=== PATIENT | female | born 1990 | race Hispanic/Latino ===

== ENCOUNTER 2017-08-13 15:00 | Inpatient (IN) | payer MEDICARE ==
--- NOTE | 2017-08-13 17:35 | RAD ---
PORTABLE CHEST 08/13/17 PROVIDED CLINICAL HISTORY: Generalized weakness. FINDINGS: Comparison 01/25/15. Cardiac and mediastinal silhouette is within normal limits. The lungs appear clear. No pleural fluid or pneumothorax apparent. Catheter material overlies the right and left neck and chest and upper abdo men, similar to the prior study. IMPRESSION: No evidence for an acute cardiopulmonary process. POS: [facility]
[2017-08-13 17:50] LABS: #Eosinphils 0.2 thou/uL (0.0-0.7); #Monocytes 0.6 thou/uL (0.11-0.59); #Neutrophils 6.8 thou/uL (1.40-6.50); %Basophils 0.3 % (0.0-1.0); %Eosinophils 2.1 % (0.0-10.0); %Lymphocytes 28.3 % (21.0-51.0); %Monocytes 5.9 % (0.0-10.0); %Neutrophils 63.4 % (42.0-75.0); Hemoglobin 13.6 g/dL (12.0-16.0); Mean Corpuscular HGB CONC 32.8 g/dL (32.0-36.0); Mean Corpuscular Volume 85.5 fl (81.0-99.0); Mean Platelet Volume 8.7 fL (7.4-10.4); Platelet Count 268 thou/uL (130-400); RBC Distribution Width 13.4 % (11.5-14.5); Red Blood Cell (RBC) Count 4.86 mill/uL (4.20-5.40); White Blood Cell (WBC) Count 10.7 thou/uL (4.8-10.8)
[2017-08-13 18:11] LABS: AST (SGOT) 10 U/L (5-34); Albumin 4.2 g/dL (3.5-5.0); Anion Gap 17 mmol/L (10-20); Bilirubin, Total 0.5 mg/dL (0.2-1.2); Calc. Creatinine Clearance 0 mL/min (70-130); Calcium 9.5 mg/dL (7.8-10.44); Carbon Dioxide 22 mmol/L (22-29); Chloride 103 mmol/L (98-107); Estimated GFR-MDRD Greater than 90; Globulin 3.2 g/dL (2.4-3.5); Potassium 4.2 mmol/L (3.5-5.1); Protein, Total 7.4 g/dL (6.0-8.3); Sodium 138 mmol/L (136-145)
[2017-08-13 18:19] LABS: ALT (SGPT) 13 U/L (8-55); Alkaline Phosphatase 160 U/L (40-150); BUN (Urea Nitrogen) 16 mg/dL (7.0-18.7); Glucose 113 mg/dL (70-105)
--- NOTE | 2017-08-13 18:34 | CT ---
CT BRAIN 08/13/17 PROVIDED CLINICAL HISTORY: Altered mental status. FINDINGS: Comparison is made with the study dated 03/07/17. There has been interval enlargement of the ventricular system, most prominently involving the left la teral ventricle. There is interval development of hypodensity about the frontal horn of the left late ral ventricle and to a lesser extent about the occipital and temporal horns. Left frontal and right p arietal ventriculostomy catheters are again seen in similar positions. Metallic coils are noted withi n the central aspects of the lateral ventricles. Hypodensity involving the white matter of the right frontal region as well as the right temporal region appears similar to somewhat more conspicuous than on the prior study. There is persistent shift of the midline structures rightward, appearing slightl y worsened with respect to the prior study. The extracranial soft tissues and osseous structures appe ar unremarkable. The visualized portions of each ventriculoperitoneal shunt catheter appear intact. IMPRESSION: Interval development of hydrocephalus and findings suggesting of transependymal flow of CSF. Neurosur gical consultation is recommended. POS: [facility]
[2017-08-13 18:46] LABS: Bilirubin Negative (Negative); Blood, Urine Small (Negative); Clarity CLOUDY (Clear); Glucose, Urine (Dipstick) Negative (Negative); Leukocyte Moderate (Negative); Nitrite Negative (Negative); Protein, Urine (Dipstick) Negative (Neg-Trace); Specific Gravity, Urine 1.024 (1.002-1.036); Urobilinogen 0.2 mg/dL (0.2-1.0)
--- NOTE | 2017-08-13 18:48 | RAD ---
SHUNTOGRAM 08/13/17 PROVIDED CLINICAL HISTORY: Altered mental status. FINDINGS: Comparison is made with the study dated 03/07/17. Bilateral SHORT STORY WRITER shunt catheter material is noted, similar to the prior examination. There is no evidence for discontinuity of the shunt catheters. A fragment of shunt catheter overlies the right chest ras lar to the prior study. Right sided shunt catheter tip terminates in the left upper quadrant and left sided shunt catheter tip terminates overlying the pelvis slightly right of midline. IVC filter and s urgical clips involving the right abdomen are again seen. The chest and abdomen demonstrate no acute findings. IMPRESSION: No radiographic evidence for discontinuity of the visualized portions of the ventriculoperitoneal alysha nt catheter apparatus. POS: [facility]
[2017-08-13 18:50] LABS: Bacteria/HPF 4+ HPF (None Seen); Hyaline Casts/LPF 7-10 HYALINE CAST LPF (0-3 Hyaline); Pathc Cast-AUWi Flag 0.67 (0-2.49); WBC/HPF 21-50 HPF (0-3)
[2017-08-13 18:52] LABS: Pregnancy Test - Urine (BHCG) Negative (Negative); Pregu Control Background? CLEAR/WHITE (CLR/WHITE); Pregu Control Bar Appear? YES (CONTROL BAR); Specific Gravity 1.024 (1.002-1.036)
[2017-08-13] MEDS ORDERED: Diprivan 0 ML ONE (21:06)
[2017-08-13] MEDS ORDERED: Ondansetron HCl/PF 4 MG/2 ML Vial IVP PRN (21:13)
[2017-08-13] MEDS ORDERED: Ondansetron ODT 4 MG TAB SL PRN (21:13)
[2017-08-13] MEDS: Fentanyl 100 MCG/2 ML VIAL ONE ×2 (21:22→21:32)
[2017-08-13] MEDS: Midazolam HCl 2 mg/2 ml Vial ONE ×2 (21:22→21:38)
[2017-08-13] MEDS ORDERED: Lidocaine 1% w/Epinephrine 1:200K 30 ML VIAL ONE (21:41)
[2017-08-13] MEDS ORDERED: Acetaminophen 325 MG TAB PO PRN (23:10)
[2017-08-13] MEDS ORDERED: Mag-Al 1200 mg/1200 mg/30 ML UDCUP PO PRN (23:10)
[2017-08-13] MEDS ORDERED: hydrALAZINE 20 MG/ML VIAL SLOW IVP PRN (23:10)
[2017-08-13] MEDS ORDERED: Bisacodyl 10 MG SUPP PR PRN (23:10)
[2017-08-13] MEDS ORDERED: Milk Of Magnesia 30 ML UDCUP PO PRN (23:10)
[2017-08-13] MEDS ORDERED: Docusate 100 MG CAP PO PRN (23:10)
[2017-08-14] MEDS: Sodium Chloride 0.9% 1,000 ML IV SCH ×2 (02:18→12:39)
[2017-08-14 05:11] LABS: #Eosinphils 0.2 thou/uL (0.0-0.7); #Monocytes 0.7 thou/uL (0.11-0.59); #Neutrophils 5.6 thou/uL (1.40-6.50); %Basophils 0.1 % (0.0-1.0); %Eosinophils 1.8 % (0.0-10.0); %Lymphocytes 31.3 % (21.0-51.0); %Monocytes 7.7 % (0.0-10.0); %Neutrophils 59.1 % (42.0-75.0); Hemoglobin 11.7 g/dL (12.0-16.0); Mean Corpuscular HGB CONC 33.4 g/dL (32.0-36.0); Mean Corpuscular Hemoglobin 28.6 pg (27.0-31.0); Mean Corpuscular Volume 85.5 fl (81.0-99.0); Mean Platelet Volume 8.9 fL (7.4-10.4); Platelet Count 223 thou/uL (130-400); RBC Distribution Width 13.3 % (11.5-14.5); Red Blood Cell (RBC) Count 4.11 mill/uL (4.20-5.40); White Blood Cell (WBC) Count 9.5 thou/uL (4.8-10.8)
[2017-08-14 05:22] LABS: Anion Gap 15 mmol/L (10-20); BUN (Urea Nitrogen) 14 mg/dL (7.0-18.7); CRP (Inflammatory) 0.94 mg/dL (= or < 0.5); Calc. Creatinine Clearance 203 mL/min (70-130); Calcium 9.3 mg/dL (7.8-10.44); Carbon Dioxide 23 mmol/L (22-29); Chloride 107 mmol/L (98-107); Estimated GFR-MDRD Greater than 90; Glucose 115 mg/dL (70-105); Potassium 3.5 mmol/L (3.5-5.1); Sodium 141 mmol/L (136-145)
--- NOTE | 2017-08-14 07:54 | CT ---
PRELIMINARY REPORT/[facility]/EMERGENCY AFTER HOURS PROCEDURE: EXAM: CT Head Without Intravenous Contrast CLINICAL HISTORY: 26 years old, female; Signs and symptoms; Other: F/u evd placed; Prior surgery; Surgery date: Postope rative (0-2 days) TECHNIQUE: Axial computed tomography images of the head/brain without intravenous contrast. COMPARISON: CT Brain WO Con 2017-08-13 17:45 FINDINGS: Grossly stable appearance to the right ventriculostomy catheter. The left ventriculostomy catheter tr aversing midline and terminating in the right frontal region is grossly stable. New left sided ventri culostomy catheter traversing left frontal ena hole terminates in the suprasellar cistern to the rig ht of midline The ventricles are dysmorphic with interval decompression. Moderate to severe white matter disease/gl iosis is grossly stable. Chronic right-sided craniotomies are stable No hemorrhage or acute territorial infarction. The paranasal sinuses and mastoid cavities are grossly clear IMPRESSION: Interval placement of new left-sided ventriculostomy drain with interval decompression of the ventric ular system No acute intracranial hemorrhage.Please see discussion above. Thank you for allowing us to participate in the care of your patient. Dictated and Authenticated by: Chencho Hand MD 08/14/2017 4:50 AM Central Time ([place] & [place]) FINAL REPORT NONCONTRAST HEAD CT: Date: 08/14/17 COMPARISON: 08/13/17. HISTORY: Status post INSPECTOR REPAIRER shunt placement. Hydrocephalus. TECHNIQUE: Noncontrast head CT is performed from skull base to skull vertex. FINDINGS: Redemonstration of a right parietal and left temporal INSPECTOR REPAIRER shunt catheter. Interval placement of a new left frontal INSPECTOR REPAIRER shunt catheter. There is decompression of the ventricular system. White matter hypode nsities presumed to be due to chronic changes of the white matter or possibly transependymal flow of CSF are again noted. There are stable colon masses. There are stable changes to the right frontal lob e. Calvarium is intact. Adequate aeration of the sinuses and mastoid air cells. IMPRESSION: Interval decrease in size of ventricular system, after placement of a new INSPECTOR REPAIRER shunt catheter via the l eft frontal approach. The new catheter terminates in the region of the septum pellucidum/posterior ri ght frontal horn. This report agrees with the preliminary report by Jung. POS: [facility]
--- NOTE | 2017-08-14 08:01 | CT ---
PRELIMINARY REPORT/[facility]/EMERGENCY AFTER HOURS PROCEDURE: EXAM: CT Chest Without Intravenous Contrast CLINICAL HISTORY: 26 years old, female; Signs and symptoms; Other: R/O infection TECHNIQUE: Axial computed tomography images of the chest without intravenous contrast. COMPARISON: No relevant prior studies available. FINDINGS: Lungs: Unremarkable. No mass. No consolidation. Pleural space: Unremarkable. No pneumothorax. No significant effusion. Heart: Unremarkable. No cardiomegaly. No significant pericardial effusion. Bones/joints: Unremarkable. No acute fracture. No dislocation. Soft tissues: Unremarkable. Vasculature: Unremarkable. No thoracic aortic aneurysm. Lymph nodes: Unremarkable. No enlarged lymph nodes. IMPRESSION: No definite acute process observed EXAM: CT Abdomen and Pelvis Without Intravenous Contrast CLINICAL HISTORY: 26 years old, female; Signs and symptoms; Other: R/O infection TECHNIQUE: Axial computed tomography images of the abdomen and pelvis without intravenous contrast. COMPARISON: No relevant prior studies available. FINDINGS: ABDOMEN: Liver: Unremarkable. Gallbladder and bile ducts: Prior cholecystectomy. No ductal dilation. Pancreas: Unremarkable. No ductal dilation. Spleen: Unremarkable. No splenomegaly. Adrenals: Unremarkable. No mass. Kidneys and ureters: Unremarkable. No obstructing stones. No hydronephrosis. Stomach and bowel: Unremarkable. No obstruction. No mucosal thickening. Appendix: No findings to suggest acute appendicitis. PELVIS: Bladder: The urinary bladder is decompressed by a Pedersen catheter. Reproductive: Unremarkable as visualized. ABDOMEN and PELVIS: Intraperitoneal space: Ventriculoperitoneal shunt terminating in the right pelvis. No free air. No si gnificant fluid collection. Bones/joints: No acute fracture. No dislocation. Soft tissues: Unremarkable. Vasculature: IVC filter No abdominal aortic aneurysm. Lymph nodes: Unremarkable. No enlarged lymph nodes. IMPRESSION: No definite acute process observed Thank you for allowing us to participate in the care of your patient. Dictated and Authenticated by: Chencho Hand MD 08/14/2017 4:57 AM Central Time ([place] & [place]) FINAL REPORT EMERGENCY AFTER HOURS CT CHEST AND ABDOMEN AND PELVIS: Date: 08/14/17 FINDINGS/IMPRESSION: This report agrees with the preliminary report by Jung. No definite suspicious CT abnormality to expl ain any infectious symptoms or signs that the patient is having. No focal consolidation seen to sugge st presence of pneumonia. There are two separate ventriculoperitoneal catheters present. Pedersen cathet er seen within decompressed bladder. IVC filter is present. Unopacified solid organs of the abdomen a nd pelvis appear within normal limits. Normal appendix. No definite acute osseous abnormality is esdras sly evident. POS: [facility]
[2017-08-14] MEDS ORDERED: FLU VACC QS2017-18 36 mo. & older 0.5 ML SYRINGE IM ONE (09:00)
[2017-08-14] MEDS ORDERED: Benzonatate 100 MG CAP PO PRN (09:58)
[2017-08-14] MEDS ORDERED: traMADol HCl 50 MG TAB PO PRN (09:58)
[2017-08-14] MEDS ORDERED: Dextrose 5% in Water 1,000 ML IV PRN (09:58)
[2017-08-14] MEDS ORDERED: Nitroglycerin 0.4 MG TAB (25 Tab Bottle) SL PRN (09:58)
[2017-08-14] MEDS ORDERED: Dextrose 50% Abboject 50 ML SYRINGE SLOW IVP PRN (09:58)
[2017-08-14] MEDS ORDERED: Diabetic Tussin 200 MG/10 ML UDCUP PO PRN (09:58)
[2017-08-14] MEDS ORDERED: Loratadine 10 MG TAB PO PRN (09:58)
[2017-08-14] MEDS ORDERED: cefTRIAXone\\ROCEPHIN 1 GM in Sodium Chloride 0.9% 100 ML IVPB SCH ×2 (10:15→14:00)
--- NOTE | 2017-08-14 11:06 | PRG ---
DATE OF SERVICE: 08/14/2017 Ms. Steven is hospital day 1 following placement of an external ventricular drain. Her head CT demon strates satisfactory decompression of the ventricular system and following placement of the external ventricular drain. We will await the reading on the CT scan of the chest, abdomen, and pelvis. She appears to have 2 catheters both going into the peritoneal cavity. It is a little unclear to me whet her the one on the left is near fluid collection at the end of the catheter in the lower pelvis, this may not be a pseudocyst and it may not be a fluid collection. We will try evaluate that. Our plan is to watch her through the weekend to try and get an idea as to what her shunt setting is most likel y best at, but the plan at this point is to make sure we have a urinary tract infection treated adequ ately and likely plan for placement of a left-sided shunt early next week.
--- NOTE | 2017-08-14 11:29 | OP ---
DATE OF PROCEDURE: 08/13/2017 LOCATION: ICU SURGEON: Paul Blanca M.D. 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 PROCEDURE: Placement of left frontal external ventricular drain to prevent neurological decline. DESCRIPTION OF PROCEDURE: After informed consent was obtained from the patient and her family, the p farida was positioned in the ICU bed. The left frontal Mirta's region was sterilely cleansed, prepa red, and draped following the clipping of hair. Proper patient pause and identification was carried out. A small linear incision was made. The skull was perforated and the dura opened. A catheter wa s placed with return of CSF under moderate pressure. This was tunneled and secured to the Payne jung in bag and the EVD was kept open at 10 cm of water. The procedure was well tolerated and closure occ urred in anatomic layers.
--- NOTE | 2017-08-14 12:14 | PRG ---
DATE OF SERVICE: 08/14/2017 This is a 30-minute initial hospital visit note, in which 30 minutes were spent in reviewing the imag ing record, evaluation and examination of the patient, and formulation of a plan. Greater than 50% o f time was spent in counseling on Jennifer Steven. CHIEF COMPLAINT: Concern of shunt malfunction with shunt-dependent hydrocephalus. HISTORY OF PRESENT ILLNESS: I reviewed the notes of my colleague Alfredo Cottrell PA-C, and agree wit h its content. Ms. 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 She has also had multiple shunt revisions and has 2 shunts and that appears last revision was in 2008. She has a right-sided catheter that appears to be more o f a parietal entry and also left-sided more frontal entry. Looking back at February 2017, the ventricl es were well decompressed. It is unclear to me what type of valves she has, it may perhaps [place] based on the appearance on CT. Nevertheless, she came in over last couple of weeks, brought in b y her family as she was more drowsy. She also had increased headache. She was evaluated here, and a head CT demonstrates ventricular enlargement consistent with hydrocephalus and likely shunt malfunct ion with transependymal flow. She was also found to have a urinary tract infection. She was admitte d to the ICU, and my plan is to place an external ventricular drain and trying to sort out what if an y shunt is needed here for this patient and which one may be malfunctioning. Also, I think it is imp ortant to get a CT scan of the chest, abdomen, and pelvis to make sure there is not a pseudocyst. PHYSICAL EXAMINATION: On exam, she is alert and appropriate. She has left-sided hemiplegia but foll ows commands briskly on the right side. She actually looks quite well given her shunt malfunction. 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 On exam, she has multiple well- healed shunt wounds. IMPRESSION AND PLAN: We will plan for placement of an external ventricular drain over the course of the next few days and sort out if there is any type of infection or malfunction. The goals, indicati ons, risks, alternatives, complications were discussed in detail with the patient and her family grayson deandreing placement of external ventricular drain. They understand that if we do not place a drain she c ould continue to neurologically decline due to failure of her shunt to work. DIAGNOSES: 1. Shunt-dependent hydrocephalus with shunt malfunction. 2. History of AVM surgery.
[2017-08-14] MEDS: cefTRIAXone\\ROCEPHIN 1 GM, Syringe 0.4 ML in Sterile Water 9.6 ML SLOW IVP SCH ×2 (12:39→12:51)
[2017-08-14] MEDS: HumaLOG 300 UNITS/3 ML VIAL SC PRN (12:59)
--- NOTE | 2017-08-14 14:49 | CON ---
DATE OF CONSULTATION: 08/14/2017 REASON FOR CONSULTATION: Hydrocephalus, possible infection. HISTORY OF PRESENT ILLNESS: This is a 26-year-old, who has a history of congenital AV malformation with prior CVA and lower extremity impairment of function as well as hydrocephalus, which required SENIOR JAVA WEB APPLICATION DEVELOPER shunt placement. The patient was admitted 3 times in 2014 for complications of diabetes mellitus as well as hyponatremia. Reportedly, the shunt was placed in 2008 and revised and then the patient had a shuntogram in 02/2017, which showed no discontinuity by radiographic assessment, and then a few days later, another shuntogram showed bilateral SENIOR JAVA WEB APPLICATION DEVELOPER shunt catheters with patency visualized all the way to the abdomen. This time, she presented to the emergency room with a 1-week history of ataxic gait and confusional state and decrease in alertness as well as weakness with anorexia. She was having also increase in the urinary frequency. There had been no fever, no respiratory symptoms, or abdominal pain. No dysuria. No back pain. Patient's initial vital signs with blood pressure 140/ 65, pulse 81, respirations 18, temperature 97.1, O2 sat 98%. The HEENT exam not remarkable. Neck was supple. Lungs with symmetric clear breath sounds. Heart exam was normal. Abdomen, soft. The patient had evidence of hydrocephalus on CT scan, and Dr. Blanca did a placement of left frontal external ventricular drain. A shuntogram was performed, which demonstrated no discontinuity of the portions of the SENIOR JAVA WEB APPLICATION DEVELOPER shunt catheter apparatus. In today's progress note from Dr. Blanca, he notices the adequate satisfactory decompression of the ventricular system. There are some questions the 2 SENIOR JAVA WEB APPLICATION DEVELOPER shunt catheters, particularly regarding the possibility of a pseudocyst. There are some concerns about her urinary tract as well. Right now , she is awake. She is more alert as per relatives. She has no headaches. She has some diplopia, which was not present previous before this dysfunction. No sore throat. No respiratory symptoms or abdominal pain. She has a Pedersen catheter inserted. She has chronic weakness of lower extremities, which is unchanged. PAST MEDICAL HISTORY: Type 2 diabetes; hypertension; hyperlipidemia; GERD; cerebral palsy; AV malformation; hydrocephalus, requiring SENIOR JAVA WEB APPLICATION DEVELOPER shunt placement; vitamin D deficiency. PAST SURGICAL HISTORY: As above plus laparoscopic cholecystectomy; parietal craniectomy for resection of the AV malformation; PEG tube placement; and thoracostomy, left side. MEDICATIONS: Currently receiving Tylenol, Maalox, Tessalon, Dulcolax, ceftriaxone, dextrose, guaifenesin, hydralazine, insulin, tramadol. ALLERGIES: None. FAMILY HISTORY: There is 1 sibling who had a cerebral aneurysm rupture. SOCIAL HISTORY: Lives in [place], [place]. Never a smoker. PHYSICAL EXAMINATION: VITAL SIGNS: T-max 98.5, blood pressure 150/97, pulse 86, respirations 16, O2 sat 96%. GENERAL: Appears in no distress, alert, follows commands. She has a Pedersen catheter in place. SKIN EXAMINATION: Otherwise, shows the left-sided ventriculostomy area. She has some difficulty with left-sided gaze. She has no nystagmus noted. Sclerae white. Pupils are equally reactive. Oral cavity moist. Gag reflex is present. NECK: Supple. LUNGS: Symmetric clear breath sounds. HEART: S1, S2, regular rate. No murmurs. ABDOMEN: Soft, nondistended. No tenderness. No bladder distention. EXTREMITIES: No joint inflammatory activity. She has weakness in lower extremities with hyporeflexia. Plantar responses are absent. She can barely wiggle her toes. Most of her movements are in the proximal musculature of the lower extremities. The upper extremities have better mobility. NEUROLOGIC: She is awake, knows her name. She cannot give me answers to questions. Has quite a bit of dysarthria. LABORATORY DATA: The white cell count is 10.7, on admission 9.5; hemoglobin of 11; platelets 223. Chemistry was unremarkable except for glucose of 222, calcium 9.3, CRP 0.94, albumin 4.2. I do not see any CSF submitted for testing. CT abdomen and pelvis with no abnormalities noted. CT of chest, no abnormalities noted. ASSESSMENT: 1. 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 2. Dysfunction of SENIOR JAVA WEB APPLICATION DEVELOPER shunt with recurrence of hydrocephalus, status post percutaneous ventriculostomy drain placement. 3. Abnormal urinalysis with positive urine culture. DISCUSSION: The differential diagnosis includes SENIOR JAVA WEB APPLICATION DEVELOPER shunt infection with SENIOR JAVA WEB APPLICATION DEVELOPER shunt-associated meningitis versus dysfunction for another reason. The patient has this urinary tract findings, and those will be treated, although they could represent asymptomatic bacteriuria. We will resume Rocephin until we have the final susceptibilities for the organism. The duration of therapy will be short lived since I do not think she has clinical or laboratory evidence to suggest an invasive urinary tract infection. Regarding the SENIOR JAVA WEB APPLICATION DEVELOPER shunt, I would encourage submission of CSF sample for testing for cell count, protein, glucose, and cultures. MTDD
--- NOTE | 2017-08-14 15:35 | PDOC.PN ---
- Subjective Encounter Start Date: 08/14/17 Encounter Start Time: 15:33 Subjective: feels Ok. denies any pain/headache/SOB/fever/chest pain - Objective MAR Reviewed: Yes Vital Signs & Weight: Vital Signs (12 hours) Temp Pulse Resp Pulse Ox 08/14/17 12:00 98.5 F 08/14/17 08:00 98.5 F 71 16 99 08/14/17 04:00 97.9 F Weight Admit Weight 213 lb Weight 213 lb 2.992 oz Most Recent Monitor Data Heart Rate from ECG 95 NIBP 168/78 NIBP BP-Mean 132 Respiration from ECG 18 SpO2 98 I&O: 08/13/17 08/14/17 08/15/17 06:59 06:59 06:59 Intake Total 407 420 Output Total 235 391 Balance 172 29 Result Diagrams: 08/14/17 05:04 08/14/17 05:04 Additional Labs: Accuchecks 08/14/17 08/14/17 12:24 10:41 POC Glucose 222 H 269 H Microbiology 08/13/17 17:25 Urine Straight Catheter Urine Culture - Preliminary Gram Negative [facility] Laboratory Tests 08/13/17 08/14/17 08/14/17 15:52 10:41 12:24 POC Glucose 132 H 269 H 222 H Phys Exam - Physical Examination Constitutional: NAD awake and alert & follows simple commands HEENT: PERRLA, moist MMs, sclera anicteric, oral pharynx no lesions Neck: no JVD Respiratory: no wheezing, no rales, no rhonchi, clear to auscultation bilateral Cardiovascular: RRR, no significant murmur, no rub, gallop Gastrointestinal: soft, non-tender, no distention, positive bowel sounds Musculoskeletal: no edema, pulses present left hemiparesis.disconjugate gaze Psychiatric: normal affect, A&O x 3 Skin: no rash Dx/Plan (1) UTI (urinary tract infection) Status: Acute Qualifiers: Urinary tract infection type: acute cystitis Hematuria presence: without hematuria Qualified Code(s): N30.00 - Acute cystitis without hematuria Comment: re started on rocephin (2) Hydrocephalus Code(s): G91.9 - HYDROCEPHALUS, UNSPECIFIED Status: Acute Comment: s/p external ventricular shunt (3) CONDUCTOR/BRAKEMAN (ventriculoperitoneal) shunt status Status: Acute (4) Hypertension Code(s): I10 - ESSENTIAL (PRIMARY) HYPERTENSION Status: Chronic (5) Mental retardation Code(s): F79 - UNSPECIFIED INTELLECTUAL DISABILITIES Status: Chronic (6) DM2 (diabetes mellitus, type 2) Status: Chronic Qualifiers: Diabetes mellitus complication status: with hyperglycemia (7) History of CVA (cerebrovascular accident) Code(s): Z86.73 - PRSNL HX OF TIA (TIA), AND CEREB INFRC W/O RESID DEFICITS Status: Chronic - Plan PT/OT, respiratory therapy, incentive spirometry, out of bed/ambulate, DVT proph w/SCDs Add Rocephin.urine Cx pending.Id on board -: add ISS.monitor Accuchecks.Metformin on hold.ADA diet -: Meds reviewed.restart Norvasc,lisinopril -: am labs * . Review of Systems - Review of Systems Other: Limited due to MR and h/o cva.denies any new problems for now. - Medications/Allergies Allergies/Adverse Reactions: Allergies Allergy/AdvReac Type Severity Reaction Status Date / Time No Known Drug Allergies Allergy Verified 01/15/15 14:23 Medications: Current Medications Acetaminophen (Tylenol) 650 mg PO Q6H PRN PRN Reason: Headache/Fever or Pain Al Hydroxide/Mg Hydroxide (Maalox) 30 ml PO Q6H PRN PRN Reason: Indigestion Benzonatate (Tessalon) 100 mg PO Q4H PRN PRN Reason: Cough Bisacodyl (Dulcolax) 10 mg VT DAILYPRN PRN PRN Reason: Constipation Dextrose/Water (Dextrose 50%) 25 gm SLOW IVP PRN PRN PRN Reason: Hypoglycemia Docusate Sodium (Colace) 100 mg PO BIDPRN PRN PRN Reason: Constipation Glucagon (Glucagon) 1 mg IM PRN PRN PRN Reason: Hypoglycemia Guaifenesin (Robitussin Sf) 200 mg PO Q4H PRN PRN Reason: Cough Hydralazine HCl (Apresoline) 5 mg SLOW IVP Q15MIN PRN PRN Reason: SBP GREATER THAN 160 Sodium Chloride (Normal Saline 0.9%) 1,000 mls @ 80 mls/hr IV .[id number] [facility] Last Admin: 08/14/17 12:39 Dose: 1,000 mls Dextrose/Water (D5w) 1,000 mls @ 0 mls/hr IV .Q0M PRN; As Directed PRN Reason: Hypoglycemia Ceftriaxone Sodium 1 gm/ (Syringe 0.4 ml/ Sterile Water) 10 mls @ 120 mls/hr SLOW IVP 1100 MIGUELITO Last Admin: 08/14/17 12:51 Dose: 10 mls Insulin Human Lispro (Humalog) 0 units SC .MODERATE SLIDING SC PRN PRN Reason: Moderate Correctional Scale Last Admin: 08/14/17 12:59 Dose: 4 unit Insulin Human Lispro (Humalog) 0 units SC .BEDTIME SLIDING SC PRN PRN Reason: Bedtime Correctional Scale Loratadine (Claritin) 10 mg PO DAILYPRN PRN PRN Reason: Sinus Symptoms Magnesium Hydroxide (Milk Of Magnesium) 30 ml PO BIDPRN PRN PRN Reason: Constipation Nitroglycerin (Nitrostat) 0.4 mg SL Q5MIN PRN PRN Reason: Chest Pain Sodium Chloride (Flush - Normal Saline) 10 ml IVF Q12HR [facility] Last Admin: 08/14/17 09:45 Dose: 10 ml Sodium Chloride (Flush - Normal Saline) 10 ml IVF PRN PRN PRN Reason: Saline Flush Tramadol HCl (Ultram) 50 mg PO Q4H PRN PRN Reason: Moderate Pain (4-6) History of Present Illnes - History of Present Illness Reason for Visit: Ataxia.AMS History of Present Illness: Admitted by NS for Ataxia and possible CONDUCTOR/BRAKEMAN shunt malfunction.Brain Ct showed Hydrocephalus. 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
--- NOTE | 2017-08-14 20:37 | CON ---
DATE OF CONSULTATION: 08/14/2017 HISTORY OF PRESENT ILLNESS: Ms. Steven is a 26-year-old female. She presented with altered mental s tatus. She has a chronic indwelling ventriculoperitoneal shunt. 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 She was admitted 3 years ag o with complications of diabetes and hyponatremia. She presented with change in mental status and is had an external fixation of a ventricular drain. She had evidence of hydrocephalus. I was consulte d because of her presence in the Critical Care Unit. She actually wakes up and answers questions. PAST MEDICAL HISTORY: 1. Remarkable for diabetes. 2. Hypertension. 3. Lipid disorder. 4. Reflux disease. 5. Cerebral palsy. 6. History of a central nervous system AV malformation. 7. History of cholecystectomy. 8. History of craniotomy for resection of an AV malformation. 9. History of PEG in the past. 10. History of thoracostomy in the past. MEDICATIONS: Have been reviewed. SOCIAL HISTORY: She is a nonsmoker, nondrinker. She does not use drugs. FAMILY HISTORY: Positive for cerebral aneurysm and a sibling. There is no history of lung disease at an early age. She lives in [place], [place]. PHYSICAL EXAMINATION: VITAL SIGNS: She is afebrile, heart rate in the 80s, blood pressure 140/90, respiratory rate 18, oxi metry is 98%. Temperature maximum is 98.5 since she has been admitted. HEENT: Pupils are react. She has slight disconjugate gaze with difficulty looking to the left. Her sclerae is anicteric. NECK: Supple. She is very cooperative. LUNGS: Clear. HEART: Regular rhythm. S1 and S2 are normal. I do not hear murmur. ABDOMEN: Soft and nontender. EXTREMITIES: With no asymmetry. She apparently has chronic weakness of her lower extremities. LABORATORY DATA: White count 9.5, hemoglobin 11.7, platelets 223. Sodium 141, potassium 3.5, chlori de 107, bicarbonate 23, BUN 14, creatinine 1.6. IMPRESSION: Status post placement of an external ventricular drain. Urine cultures growing gram neg ative rods. I do not see any CSF cultures or blood cultures have been reported out. I will be happy to follow with the other physicians caring for her. She appears stable from a respiratory standpoin t at this time. Critical care time was 30 minutes.
[2017-08-15] MEDS: Sodium Chloride 0.9% 1,000 ML IV SCH ×2 (00:20→12:45)
[2017-08-15] MEDS: Lisinopril 2.5 MG TAB PO SCH (09:35)
[2017-08-15] MEDS: Amlodipine 5 MG TAB PO SCH (09:35)
[2017-08-15] MEDS: cefTRIAXone\\ROCEPHIN 1 GM, Syringe 0.4 ML in Sterile Water 9.6 ML SLOW IVP SCH (11:00)
--- NOTE | 2017-08-15 11:08 | PRG ---
DATE OF SERVICE: 08/15/2017 SUBJECTIVE: Jennifer Steven has no complaints. She still has a right gaze preference. OBJECTIVE: LUNGS: Clear. HEART: Regular rhythm. ABDOMEN: Soft. Intake and output is negative 22. Her CSF drainage is 145 mL in the last 24 hours. IMPRESSION: 1. Hydrocephalus status post malfunction of a ventriculoperitoneal shunt. 2. Cystitis with Escherichia coli. PLAN: Continue external drainage from neurosurgery, antimicrobial therapy for Infectious Disease. F rom a respiratory standpoint, she is stable.
[2017-08-15] MEDS: HumaLOG 300 UNITS/3 ML VIAL SC PRN (11:54)
--- NOTE | 2017-08-15 14:59 | PRG ---
DATE OF SERVICE: 08/15/2017 Ms. Steven is hospital day 2 following admission for shunt malfunction, it appears as if she has urin zbigniew tract infection. She is being treated for this. Dr. Ordoñez is following. I do not suspect shunt infection here. I suspect shunt malfunction. I have reviewed her head CT post-external ventricular drain placement, it demonstrated satisfactory decompression of the ventricular system. I also revie wed the CT scan of the chest, abdomen, and pelvis with Dr. Zhang and it appears as if there is no e vidence of pseudocyst in the abdomen. Her external ventricular drain appears to be working just fine . Intracranial pressures are in the acceptable range and her drain output is just under 10 mL/h. Fu rther, the patient neurologically states she feels much better and is much more alert with stable lef t-sided hemiplegia, interactive and states that she has significant improvement in her headache that she experienced in the last couple weeks in her shunt and malfunction. The plan at this point is to take the patient to surgery early next week likely to stay for shunt placement. This will likely be a left-sided shunt, I would like to do this with Dr. Zhang. I do not feel strongly that we need to send CSF at this point as the patient has had nothing for meningismus or central nervous system infe ction. I suspect she has a shunt malfunction and the infectious processes has been localized to the urine certainly should she have evidence of, otherwise we can send CSF. We may consider sending CSF prior to shunt placement, although again my suspicion of any shunt malfunction is essentially zero.
--- NOTE | 2017-08-15 15:09 | PDOC.PN ---
- Subjective Encounter Start Date: 08/15/17 Encounter Start Time: 15:08 Subjective: feels better. good appetite.no overnight events - Objective MAR Reviewed: Yes Vital Signs & Weight: Vital Signs (12 hours) Temp Pulse BP 08/15/17 09:35 82 159/96 H 08/15/17 04:00 98.3 F Weight Admit Weight 213 lb Weight 213 lb 2.992 oz Most Recent Monitor Data Heart Rate from ECG 78 NIBP 159/96 NIBP BP-Mean 119 Respiration from ECG 15 SpO2 98 I&O: 08/14/17 08/15/17 08/16/17 06:59 06:59 06:59 Intake Total 407 1553 Output Total 235 1575 Balance 172 -22 Result Diagrams: 08/14/17 05:04 08/14/17 05:04 Additional Labs: Accuchecks 08/15/17 08/15/17 08/14/17 11:50 06:10 20:06 POC Glucose 181 H 141 H 182 H 08/14/17 17:56 POC Glucose 113 H Microbiology 08/13/17 17:25 Urine Straight Catheter Urine Culture - Final Escherichia coli Phys Exam - Physical Examination Constitutional: NAD HEENT: PERRLA, moist MMs, sclera anicteric, oral pharynx no lesions Neck: no nodes, no JVD, supple, full ROM Respiratory: no wheezing, no rales, no rhonchi, clear to auscultation bilateral Cardiovascular: RRR, no significant murmur Gastrointestinal: soft, non-tender, no distention, positive bowel sounds Musculoskeletal: no edema, pulses present left hemiparesis.disconjugate gaze Psychiatric: normal affect, A&O x 3 Skin: no rash Dx/Plan (1) UTI (urinary tract infection) Status: Acute Qualifiers: Urinary tract infection type: acute cystitis Hematuria presence: without hematuria Qualified Code(s): N30.00 - Acute cystitis without hematuria Comment: re started on rocephin (2) Hydrocephalus Code(s): G91.9 - HYDROCEPHALUS, UNSPECIFIED Status: Acute Comment: s/p external ventricular shunt (3) KEY ENTRY OPERATOR (ventriculoperitoneal) shunt status Status: Acute (4) Hypertension Code(s): I10 - ESSENTIAL (PRIMARY) HYPERTENSION Status: Chronic (5) Mental retardation Code(s): F79 - UNSPECIFIED INTELLECTUAL DISABILITIES Status: Chronic (6) DM2 (diabetes mellitus, type 2) Status: Chronic Qualifiers: Diabetes mellitus complication status: with hyperglycemia (7) History of CVA (cerebrovascular accident) Code(s): Z86.73 - PRSNL HX OF TIA (TIA), AND CEREB INFRC W/O RESID DEFICITS Status: Chronic - Plan 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 -: BP improved w restarting amlodipine & lisinopril. -: Cont rocephin for UTI.ID following. -: Shunt management per primary team. HD stable,afebrile -: am labs.will follow * . Review of Systems - Review of Systems Constitutional: negative: fever, chills, sweats, weakness, malaise, other ENT: negative: Ear Pain, Ear Discharge, Nose Pain, Nose Discharge, Nose Congestion, Mouth Pain, Mouth Swelling, Throat Pain, Throat Swelling, Other Respiratory: negative: Cough, Dry, Shortness of Breath, Hemoptysis, SOB with Excertion, Pleuritic Pain, Sputum, Wheezing Cardiovascular: negative: chest pain, palpitations, orthopnea, paroxysmal nocturnal dyspnea, edema, light headedness, other Gastrointestinal: negative: Nausea, Vomiting, Abdominal Pain, Diarrhea, Constipation, Melena, Hematochezia, Other Genitourinary: negative: Dysuria, Frequency, Incontinence, Hematuria, Retention , Other Neurological: negative: Weakness, Numbness, Incoordination, Change in Speech, Confusion, Seizures, Other - Medications/Allergies Allergies/Adverse Reactions: Allergies Allergy/AdvReac Type Severity Reaction Status Date / Time No Known Drug Allergies Allergy Verified 01/15/15 14:23 Medications: Current Medications Acetaminophen (Tylenol) 650 mg PO Q6H PRN PRN Reason: Headache/Fever or Pain Last Admin: 08/15/17 02:39 Dose: 650 mg Al Hydroxide/Mg Hydroxide (Maalox) 30 ml PO Q6H PRN PRN Reason: Indigestion Amlodipine Besylate (Norvasc) 5 mg PO DAILY MIGUELITO Last Admin: 08/15/17 09:35 Dose: 5 mg Benzonatate (Tessalon) 100 mg PO Q4H PRN PRN Reason: Cough Bisacodyl (Dulcolax) 10 mg [place] DAILYPRN PRN PRN Reason: Constipation Dextrose/Water (Dextrose 50%) 25 gm SLOW IVP PRN PRN PRN Reason: Hypoglycemia Docusate Sodium (Colace) 100 mg PO BIDPRN PRN PRN Reason: Constipation Glucagon (Glucagon) 1 mg IM PRN PRN PRN Reason: Hypoglycemia Guaifenesin (Robitussin Sf) 200 mg PO Q4H PRN PRN Reason: Cough Hydralazine HCl (Apresoline) 5 mg SLOW IVP Q15MIN PRN PRN Reason: SBP GREATER THAN 160 Sodium Chloride (Normal Saline 0.9%) 1,000 mls @ 80 mls/hr IV .[id number] REPLACED BY [facility] Last Admin: 08/15/17 00:20 Dose: 1,000 mls Dextrose/Water (D5w) 1,000 mls @ 0 mls/hr IV .Q0M PRN; As Directed PRN Reason: Hypoglycemia Ceftriaxone Sodium 1 gm/ (Syringe 0.4 ml/ Sterile Water) 10 mls @ 120 mls/hr SLOW IVP 1100 REPLACED BY [facility] Last Admin: 08/14/17 12:51 Dose: 10 mls Insulin Human Lispro (Humalog) 0 units SC .MODERATE SLIDING SC PRN PRN Reason: Moderate Correctional Scale Last Admin: 08/15/17 11:54 Dose: 2 unit Insulin Human Lispro (Humalog) 0 units SC .BEDTIME SLIDING SC PRN PRN Reason: Bedtime Correctional Scale Lisinopril (Zestril) 2.5 mg PO DAILY REPLACED BY [facility] Last Admin: 08/15/17 09:35 Dose: 2.5 mg Loratadine (Claritin) 10 mg PO DAILYPRN PRN PRN Reason: Sinus Symptoms Magnesium Hydroxide (Milk Of Magnesium) 30 ml PO BIDPRN PRN PRN Reason: Constipation Nitroglycerin (Nitrostat) 0.4 mg SL Q5MIN PRN PRN Reason: Chest Pain Sodium Chloride (Flush - Normal Saline) 10 ml IVF Q12HR REPLACED BY [facility] Last Admin: 08/15/17 09:36 Dose: 10 ml Sodium Chloride (Flush - Normal Saline) 10 ml IVF PRN PRN PRN Reason: Saline Flush Tramadol HCl (Ultram) 50 mg PO Q4H PRN PRN Reason: Moderate Pain (4-6)
[2017-08-16] MEDS: Sodium Chloride 0.9% 1,000 ML IV SCH ×2 (01:31→14:00)
[2017-08-16 03:53] LABS: #Eosinphils 0.3 thou/uL (0.0-0.7); #Monocytes 0.9 thou/uL (0.11-0.59); #Neutrophils 6.2 thou/uL (1.40-6.50); %Basophils 0.4 % (0.0-1.0); %Eosinophils 2.6 % (0.0-10.0); %Lymphocytes 28.8 % (21.0-51.0); %Monocytes 8.9 % (0.0-10.0); %Neutrophils 59.3 % (42.0-75.0); Hemoglobin 11.8 g/dL (12.0-16.0); Mean Corpuscular HGB CONC 32.2 g/dL (32.0-36.0); Mean Corpuscular Hemoglobin 27.4 pg (27.0-31.0); Mean Corpuscular Volume 85.1 fl (81.0-99.0); Platelet Count 164 thou/uL (130-400); RBC Distribution Width 13.5 % (11.5-14.5); Red Blood Cell (RBC) Count 4.31 mill/uL (4.20-5.40); White Blood Cell (WBC) Count 10.4 thou/uL (4.8-10.8)
[2017-08-16 04:06] LABS: Anion Gap 11 mmol/L (10-20); BUN (Urea Nitrogen) 10 mg/dL (7.0-18.7); Calc. Creatinine Clearance 210 mL/min (70-130); Calcium 8.8 mg/dL (7.8-10.44); Carbon Dioxide 23 mmol/L (22-29); Chloride 106 mmol/L (98-107); Estimated GFR-MDRD Greater than 90; Glucose 126 mg/dL (70-105); Potassium 3.8 mmol/L (3.5-5.1); Sodium 136 mmol/L (136-145)
[2017-08-16] MEDS: Amlodipine 5 MG TAB PO SCH (08:46)
[2017-08-16] MEDS: Lisinopril 2.5 MG TAB PO SCH (08:46)
--- NOTE | 2017-08-16 09:36 | PRG ---
DATE OF SERVICE: 08/16/2017 SUBJECTIVE: The patient is awake and alert, doing well, had no complaints. Still has an intraventri cular drain in place. PHYSICAL EXAMINATION: VITAL SIGNS: Temperature 98.3, pulse 81, blood pressure 127/74. HEENT: Unremarkable. NECK: No JVD. CHEST: Clear. CARDIAC: S1 and S2 regular. ABDOMEN: Soft. EXTREMITIES: No edema. LABORATORY DATA: White blood cell count 10, hematocrit 36, platelet count 164. Sodium 136, potassiu m 3.8, BUN 10, creatinine 0.6, glucose 126. ASSESSMENT: 1. Hydrocephalus. 2. Cystitis with Escherichia coli. PLAN: Continuing antimicrobial therapy. No issues at this time.
[2017-08-16] MEDS: cefTRIAXone\\ROCEPHIN 1 GM, Syringe 0.4 ML in Sterile Water 9.6 ML SLOW IVP SCH (11:52)
[2017-08-16] MEDS: HumaLOG 300 UNITS/3 ML VIAL SC PRN (11:52)
--- NOTE | 2017-08-16 15:41 | CON-2 ---
DATE OF CONSULTATION: 08/16/2017 ATTENDING PHYSICIAN: Jennifer Sage M.D. RESIDENT PHYSICIAN: Alfredo Mendoza M.D. REASON FOR CONSULTATION: Medical management. HISTORY OF PRESENT ILLNESS: This is a 26-year-old female with past medical history of shunt-dependent hydrocephalus, CP, insulin dependent type 2 diabetes mellitus, and hypertension, who initially presented with a 1-week history of ataxic gait and altered mentation and was admitted by the neurosurgical team due to concern for shunt malfunction. The patient underwent placement of a left external ventricular drain on 08/13/2017. Shuntogram apparently showed no discontinuity of her RESOURCE MANAGEMENT SPECIALIST shunt apparatus. Other issues include urine culture positive for E.Coli - patient may have had some increased urinary frequency on admission. The patient was initially followed for medical management by the hospitalist team, but is now being transferred to our service since she sees [facility] outpatient. PAST MEDICAL HISTORY: 1. Congenital AV malformation with chronic hydrocephalus. 2. GERD. 3. Dyslipidemia. 4. Obesity. 5. Hypertension. 6. Muscular atrophy. 7. Chronic disability. 8. History of cerebrovascular accident. 9. Vitamin D deficiency. PAST SURGICAL HISTORY: 1. Laparoscopic cholecystectomy. 2. Parietal craniectomy for AV malformation resection. 3. PEG tube placement. 4. Left side thoracostomy. HOME MEDICATIONS: Include, 1. Amlodipine 5 mg daily. 2. Atorvastatin 40 mg daily. 3. Vitamin D3 5000 units daily. 4. Metformin 1000 mg twice daily. 5. Lisinopril 2.5 mg daily. 6. Novolin N 20 units subcu b.i.d. 7. Levemir 50 units subcutaneously every morning. SOCIAL HISTORY: Negative x3. FAMILY HISTORY: Positive for cerebral aneurysm rupture in a sibling. REVIEW OF SYSTEMS: Ten-point review of systems including general, eyes, ENT, respiratory, CV, GI, , skin, musculoskeletal, neuro negative except for those pertinent positives listed above in HPI. PHYSICAL EXAMINATION: VITAL SIGNS: Temperature 98.7, respiratory rate 14, heart rate 76, blood pressure 156/87, oxygen saturation 98% on room air, weight was 97.4 kilograms. GENERAL: Patient was in no acute distress, awake, alert, and oriented to self and place. EYES: She had disconjugate gaze, but equally reactive pupils and sclerae was nonicteric. ENT: Mucous membranes moist. Oropharynx clear. CARDIOVASCULAR: Regular rate and rhythm. Pulses equal. RESPIRATORY: Clear to auscultation bilaterally, nonlabored. ABDOMEN: Soft, nontender to palpation. No guarding or rebound. EXTREMITIES: No clubbing, no cyanosis, no edema. Equal movements bilaterally without asymmetry. SKIN: No rash or ulcer. No palpable lesions. NEUROLOGIC: She has dysarthria. She has bilateral severe lower extremity weakness and hyperreflexia. PSYCHIATRIC: Mood and affect appropriate. She is cooperative with exam. LABORATORY DATA: CBC: White blood cells 10.4, hemoglobin 11.8, hematocrit 36.6 , platelets 164. Sodium 136, potassium 3.8, chloride 106, bicarbonate 23, BUN 10, creatinine 0.61, glucose 126, calcium 8.8. There is no new imaging from today. ASSESSMENT AND PLAN: This is a 26-year-old female with: 1. Congenital atrioventricular malformation with chronic shunt-dependent hydrocephalus. Primary management per Neurosurgery. New shunt to be placed early next week per Dr. Blanca's note. 2. Ventriculoperitoneal shunt malfunction. Adequate decompression appears to be obtained with the patient's external ventricular drain and subsequent improvement of neurological status. No central neurovascular system infection suspected at this time, management per primary team as above. 3. Urinary tract infection versus asymptomatic bacteria. Infectious Disease is following. No evidence of an invasive urinary tract infection. Culture growing out Escherichia coli, which was resistant to ampicillin and Bactrim. The patient should be adequately treated with 3 days of Rocephin, which will be tomorrow (08/17). 4. Type 2 diabetes mellitus. We will restart home insulin, possibly at a reduced rate since glucoses have not been high, and continue to monitor. 5. Hypertension. Continue home medications. Blood pressure is controlled at this time. 6. Hyperlipidemia. Continue statin. 7. Vitamin D deficiency. Continue daily replacement. Consultation discussed with attending physician, Dr. Sage, who agrees with the assessment and plan. Thank you for this consultation. We will continue to follow. LISAD
[2017-08-17] MEDS: Sodium Chloride 0.9% 1,000 ML IV SCH ×2 (01:04→13:07)
--- NOTE | 2017-08-17 06:58 | PDOC.FM ---
- Subjective Subjective: Patient reports doing well overnight. No complaints or concerns. Denies CP, SOB , N/V. Endorses flatus, no BM. Reports she has been consuming only clear liquids. - Objective MAR Reviewed: Yes Vital Signs & Weight: Vital Signs (12 hours) Temp Pulse Resp Pulse Ox 08/17/17 04:00 98.0 F 08/17/17 00:00 98.2 F 08/16/17 20:00 98.8 F 76 16 99 Weight Admit Weight 96.615 kg Weight 97.5 kg Most Recent Monitor Data Heart Rate from ECG 67 NIBP 140/82 NIBP BP-Mean 105 Respiration from ECG 13 SpO2 97 I&O: 08/15/17 08/16/17 08/17/17 06:59 06:59 06:59 Intake Total 1553 1600 2812 Output Total 1575 2032 2655 Balance -22 -432 157 Result Diagrams: 08/16/17 03:01 08/16/17 03:01 <Ralf Jackman - Last Filed: 08/17/17 06:56> - Objective Vital Signs & Weight: Vital Signs (12 hours) Temp Pulse Resp BP Pulse Ox 08/17/17 11:28 98.6 F 08/17/17 09:00 76 146/92 H 08/17/17 08:59 76 145/92 H 08/17/17 08:00 98.8 F 76 12 97 08/17/17 04:00 98.0 F Weight Admit Weight 96.615 kg Weight 97.5 kg Most Recent Monitor Data Heart Rate from ECG 86 NIBP 138/71 NIBP BP-Mean 86 Respiration from ECG 21 SpO2 99 I&O: 08/16/17 08/17/17 08/18/17 06:59 06:59 06:59 Intake Total 1600 2812 550 Output Total 2032 2655 607 Balance -432 157 -57 Result Diagrams: 08/16/17 03:01 08/16/17 03:01 <Jennifer Sage - Last Filed: 08/17/17 14:12> Phys Exam - Physical Examination Constitutional: NAD disconjugate gaze Neck: full ROM Respiratory: no wheezing Cardiovascular: RRR, no significant murmur Gastrointestinal: soft, positive bowel sounds Musculoskeletal: pulses present trace edema in LE Neurological: non-focal left sided hemiparesis Psychiatric: normal affect <Ralf Jackman - Last Filed: 08/17/17 06:56> Dx/Plan (1) Hydrocephalus Code(s): G91.9 - HYDROCEPHALUS, UNSPECIFIED Status: Acute (2) HUMAN RESOURCES MANAGER (ventriculoperitoneal) shunt status Status: Acute Plan: being managed by primary team (3) UTI (urinary tract infection) Status: Acute QualifierTitle: Urinary tract infection type: acute cystitis Hematuria presence: without hematuria Qualified Code(s): N30.00 - Acute cystitis without hematuria Plan: Patient currently on rocephin (4) Hypertension Code(s): I10 - ESSENTIAL (PRIMARY) HYPERTENSION Status: Chronic Plan: Did well overnight, increased during the day for the past couple days might need to adjust dosing or timing continue to monitor (5) DM2 (diabetes mellitus, type 2) Status: Chronic QualifierTitle: Diabetes mellitus complication status: with hyperglycemia Plan: patient has been well managed on current regimen, received 4 units SSI yesterday plan to restart home levemir today (6) Mental retardation Code(s): F79 - UNSPECIFIED INTELLECTUAL DISABILITIES Status: Chronic <Ralf Jackman - Last Filed: 08/17/17 06:56> Attending Addendum - Attending Addendum I personally evaluated the patient and discussed the management with Dr. Jackman. I agree with the History, Examination, Assessment and Plan documented above with any addition or exceptions noted below. The patient denies headache and states she feels well. Blood pressure is controlled. Will continue to monitor blood glucose and adjust insulin regimen as needed. <Jennifer Sage - Last Filed: 08/17/17 14:12>
--- NOTE | 2017-08-17 08:43 | PRG ---
DATE OF SERVICE: 08/17/2017 SUBJECTIVE: She says she feels okay this morning and is not having headache. PHYSICAL EXAMINATION: VITAL SIGNS: Temperature 98.0, pulse 87, blood pressure 140/82, O2 sat 97%. HEENT: Unremarkable. NECK: No JVD. CHEST: Clear. CARDIAC: S1, S2 regular. ABDOMEN: Soft. EXTREMITIES: No edema. ASSESSMENT: 1. Hydrocephalus. 2. Cystitis with Escherichia coli. PLAN: Continue antimicrobial therapy. No acute issues noted at this time.
[2017-08-17] MEDS: Amlodipine 5 MG TAB PO SCH (08:59)
[2017-08-17] MEDS ORDERED: Non-Formulary Item 1 EACH (Insulin Glargine,Hum.Rec.Anlog 20 UNIT) SQ SCH (09:00)
[2017-08-17] MEDS ORDERED: Non-Formulary Item 1 EACH (Insulin Glargine,Hum.Rec.Anlog 50 UNIT) SQ SCH (09:00)
[2017-08-17] MEDS: Lisinopril 2.5 MG TAB PO SCH (09:00)
[2017-08-17] MEDS: Insulin Detemir 100 UNITS/ML 20 UNITS in Pre-Filled Syringe 1 EACH SC SCH (09:02)
[2017-08-17] MEDS: cefTRIAXone\\ROCEPHIN 1 GM, Syringe 0.4 ML in Sterile Water 9.6 ML SLOW IVP SCH (11:34)
[2017-08-17] MEDS: HumaLOG 300 UNITS/3 ML VIAL SC PRN (16:37)
[2017-08-17] MEDS ORDERED: Levofloxacin 500 mg/D5W 100 ml Premix Bag ONE (18:15)
[2017-08-17] MEDS ORDERED: Clindamycin/D5W 900 mg/50 ml Premix Bag ONE (18:15)
[2017-08-18] MEDS: Sodium Chloride 0.9% 1,000 ML IV SCH ×2 (00:27→15:55)
--- NOTE | 2017-08-18 09:06 | PDOC.FM ---
- Subjective Subjective: Patient sitting up in chair doing well this morning. She has spoken with Dr. Blanca and will go back for surgery tomorrow. No acute events overnight. - Objective MAR Reviewed: Yes Vital Signs & Weight: Vital Signs (12 hours) Temp 08/18/17 08:00 97.9 F 08/18/17 04:00 98.1 F 08/18/17 00:00 98.5 F Weight Admit Weight 96.615 kg Weight 97 kg Most Recent Monitor Data Heart Rate from ECG 74 NIBP 122/72 NIBP BP-Mean 97 Respiration from ECG 17 SpO2 99 I&O: 08/17/17 08/18/17 08/19/17 06:59 06:59 06:59 Intake Total 2812 2878 360 Output Total 2655 3122 248 Balance 157 -244 112 Result Diagrams: 08/16/17 03:01 08/16/17 03:01 <Garrett Martínez - Last Filed: 08/18/17 09:04> - Objective Vital Signs & Weight: Vital Signs (12 hours) Temp Pulse Resp BP Pulse Ox 08/18/17 09:09 88 136/81 08/18/17 08:00 97.9 F 08/18/17 07:48 97.9 F 74 15 99 08/18/17 04:00 98.1 F 08/18/17 00:00 98.5 F Weight Admit Weight 96.615 kg Weight 97 kg Most Recent Monitor Data Heart Rate from ECG 88 NIBP 121/79 NIBP BP-Mean 93 Respiration from ECG 15 SpO2 99 I&O: 08/17/17 08/18/17 08/19/17 06:59 06:59 06:59 Intake Total 2812 2878 480 Output Total 2655 3122 419 Balance 157 -244 61 Result Diagrams: 08/16/17 03:01 08/16/17 03:01 <Sammy Huang - Last Filed: 08/18/17 11:30> Phys Exam - Physical Examination Constitutional: NAD HEENT: moist MMs Respiratory: no wheezing, no rales Cardiovascular: RRR, no significant murmur Gastrointestinal: soft, non-tender Neurological: moves all 4 limbs Psychiatric: normal affect, A&O x 3 <Garrett Martínez - Last Filed: 08/18/17 09:04> Dx/Plan (1) Hydrocephalus Code(s): G91.9 - HYDROCEPHALUS, UNSPECIFIED Status: Acute Plan: 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 Blanca with be taking patient to OR tomorrow with General Surgery (2) CHIEF OF FIELD OPERATIONS (ventriculoperitoneal) shunt status Status: Chronic Plan: see above (3) UTI (urinary tract infection) Status: Acute QualifierTitle: Urinary tract infection type: acute cystitis Hematuria presence: without hematuria Qualified Code(s): N30.00 - Acute cystitis without hematuria Plan: Day #3 of Rocephin Adequately treated (4) Hypernatremia Code(s): E87.0 - HYPEROSMOLALITY AND HYPERNATREMIA Status: Chronic Plan: Continue to monitor (5) Hypertension Code(s): I10 - ESSENTIAL (PRIMARY) HYPERTENSION Status: Chronic Plan: Appropriate overnight Continue to monitor - Plan Plan: Plan: -continue medical management until OR with Dr. Blanca tomorrow <Garrett Martínez - Last Filed: 08/18/17 09:04> Attending Addendum - Attending Addendum I personally evaluated the patient and discussed the management with Dr. Martínez. I agree with the History, Examination, Assessment and Plan documented above with any addition or exceptions noted below. <Sammy Huang - Last Filed: 08/18/17 11:30>
[2017-08-18] MEDS: Amlodipine 5 MG TAB PO SCH (09:09)
[2017-08-18] MEDS: Lisinopril 2.5 MG TAB PO SCH (09:09)
--- NOTE | 2017-08-18 09:09 | PRG ---
DATE OF SERVICE: 08/18/2017 Ms. Steven has tolerated placement of external ventricular drain well. She is approximately 5 to 10 mL of output hourly. She is sitting outside of her bed in a chair and states she continues to feel q uite well. Her urinary tract infection appears to have been treated satisfactorily. At this point, we will make plans for placement of a left-sided shunt tomorrow pending surgical schedule availabilit y. The goals, indications, risks, alternative complications were discussed in detail with the patien t. She understands the purpose of placement of a shunt and the risks. She wishes to proceed.
[2017-08-18] MEDS: Insulin Detemir 100 UNITS/ML 20 UNITS in Pre-Filled Syringe 1 EACH SC SCH (09:10)
[2017-08-18] MEDS: cefTRIAXone\\ROCEPHIN 1 GM, Syringe 0.4 ML in Sterile Water 9.6 ML SLOW IVP SCH (10:36)
[2017-08-18] MEDS: HumaLOG 300 UNITS/3 ML VIAL SC PRN (11:47)
[2017-08-18] MEDS ORDERED: Morphine 2 MG/ML SYRINGE SLOW IVP PRN (15:39)
--- NOTE | 2017-08-18 15:46 | PRG ---
DATE OF SERVICE: 08/18/2017 Ms. Steven is doing well. She is sitting up in a chair. She was very quick to respond to questions. She is in no distress. OBJECTIVE: VITAL SIGNS: Heart rate in the 80s. Blood pressure 108/83, respiratory rate 17. Intake and outputs negative 244. LUNGS: Clear. HEART: Regular rhythm. ABDOMEN: Soft. LABORATORY: He has no new lab other than blood glucoses. IMPRESSION: Malfunctioning ventriculoperitoneal shunt externalized. I am told that the plan is to r eimplant a shunt. She did have Escherichia coli isolated in her urine. She appears to be clinically stable.
[2017-08-18] MEDS: metFORMIN 500 MG TAB PO SCH (17:15)
[2017-08-18] MEDS: Atorvastatin Calcium 40 MG TAB PO SCH (21:38)
[2017-08-19] MEDS: Sodium Chloride 0.9% 1,000 ML IV SCH ×2 (05:15→17:26)
[2017-08-19] MEDS: metFORMIN 500 MG TAB PO SCH ×2 (08:07→17:26)
--- NOTE | 2017-08-19 08:32 | PDOC.FM ---
- Subjective Subjective: Patient sitting up in bed this morning. She is happy and smiling during our conversation. No acute events overnight. She is planning on surgery today with Dr. Blanca and Dr. Zhang, but is waiting on confirmation. Afebrile, VSS. - Objective MAR Reviewed: Yes Vital Signs & Weight: Vital Signs (12 hours) Temp 08/19/17 04:00 98.0 F 08/19/17 00:00 98.7 F Weight Admit Weight 96.615 kg Weight 96.1 kg Most Recent Monitor Data Heart Rate from ECG 76 NIBP 129/89 NIBP BP-Mean 102 Respiration from ECG 16 SpO2 98 I&O: 08/18/17 08/19/17 08/20/17 06:59 06:59 06:59 Intake Total 2878 2753 Output Total 3122 3238 Balance -244 -485 Result Diagrams: 08/16/17 03:01 08/16/17 03:01 <Garrett Martínez - Last Filed: 08/19/17 08:27> - Objective Vital Signs & Weight: Vital Signs (12 hours) Temp 08/19/17 07:00 98.0 F 08/19/17 04:00 98.0 F 08/19/17 00:00 98.7 F Weight Admit Weight 96.615 kg Weight 96.1 kg Most Recent Monitor Data Heart Rate from ECG 70 NIBP 131/89 NIBP BP-Mean 100 Respiration from ECG 7 SpO2 98 I&O: 08/18/17 08/19/17 08/20/17 06:59 06:59 06:59 Intake Total 2878 2753 Output Total 3122 3232 292 Balance -244 -485 -292 Result Diagrams: 08/16/17 03:01 08/16/17 03:01 <Sammy Huang - Last Filed: 08/19/17 10:46> Phys Exam - Physical Examination Constitutional: NAD HEENT: moist MMs Neck: supple, full ROM Respiratory: no wheezing, no rales Cardiovascular: RRR Gastrointestinal: soft, non-tender, no distention Musculoskeletal: no edema Neurological: moves all 4 limbs Psychiatric: normal affect, A&O x 3 Skin: no rash <Garrett Martínez - Last Filed: 08/19/17 08:27> Dx/Plan (1) Hydrocephalus Code(s): G91.9 - HYDROCEPHALUS, UNSPECIFIED Status: Acute Plan: 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 Blanca with be taking patient to OR tomorrow with General Surgery, Dr. Zhang (2) YARD LABORER (ventriculoperitoneal) shunt status Status: Chronic Plan: see above (3) UTI (urinary tract infection) Status: Acute QualifierTitle: Urinary tract infection type: acute cystitis Hematuria presence: without hematuria Qualified Code(s): N30.00 - Acute cystitis without hematuria Plan: Day #3 of Rocephin Adequately treated D/c abx today (4) Hypernatremia Code(s): E87.0 - HYPEROSMOLALITY AND HYPERNATREMIA Status: Chronic Plan: Continue to monitor (5) Hypertension Code(s): I10 - ESSENTIAL (PRIMARY) HYPERTENSION Status: Chronic Plan: Appropriate overnight Continue to monitor (6) DM2 (diabetes mellitus, type 2) Status: Chronic QualifierTitle: Diabetes mellitus complication status: with hyperglycemia Plan: Continue Metformin and Levemir 20u SC qAM On moderate SSI, only required 2u yesterday - Plan Plan: Plan: -diabetes, hypertension, hyperlipidemia, and vitamin D deficiency currently well controlled; continue to monitor -possible surgery today with NS <Garrett Martínez - Last Filed: 08/19/17 08:27> Attending Addendum - Attending Addendum I personally evaluated the patient and discussed the management with Dr. Martínez. I agree with the History, Examination, Assessment and Plan documented above with any addition or exceptions noted below. <Sammy Huang - Last Filed: 08/19/17 10:46>
[2017-08-19] MEDS ORDERED: Thrombin 5000 UNITS/5 ML VIAL ONE (09:22)
[2017-08-19] MEDS ORDERED: Lidocaine 1% w/Epinephrine 1:200K 30 ML VIAL ONE (09:22)
[2017-08-19] MEDS ORDERED: Bacitracin Zinc Ointment 30 gm TUBE ONE (09:22)
[2017-08-19] MEDS ORDERED: Sodium Chloride 0.9% 10 ML ONE (09:22)
[2017-08-19] MEDS: cefTRIAXone\\ROCEPHIN 1 GM, Syringe 0.4 ML in Sterile Water 9.6 ML SLOW IVP SCH (10:00)
[2017-08-19] MEDS ORDERED: Fentanyl 100 MCG/2 ML VIAL ONE ×3 (10:26→12:38)
[2017-08-19] MEDS ORDERED: Famotidine/PF 20 mg/2ml Vial ONE (10:31)
[2017-08-19] MEDS ORDERED: Morphine Sulfate 2 MG/ML SYRINGE SLOW IVP PRN (11:37)
[2017-08-19] MEDS ORDERED: Promethazine HCl 25 MG/ML VIAL SLOW IVP PRN ×2 (11:37→12:19)
[2017-08-19] MEDS ORDERED: Promethazine HCl 25 MG/ML VIAL IM PRN ×2 (11:37→12:19)
[2017-08-19] MEDS ORDERED: Ondansetron HCl/PF 4 MG/2 ML Vial IVP PRN ×2 (11:37→12:19)
[2017-08-19] MEDS ORDERED: HYDROmorphone 2 MG/ML VIAL SLOW IVP PRN (11:37)
--- NOTE | 2017-08-19 12:26 | OP ---
OR: 12. WOUND TYPE: Type 1 wound. SURGEON: Paul Blanca M.D. PACKAGE DELIVERY DRIVER: Alfredo Cottrell PA-C. PREPROCEDURE DIAGNOSIS: Shunt malfunction with shunt dependent hydrocephalus. POSTPROCEDURE DIAGNOSIS: Shunt malfunction with shunt dependent hydrocephalus. PROCEDURES: Left ventriculoperitoneal shunt revision, replacement of ventricular catheter and valve. PROCEDURE: After informed consent was obtained from the patient, the patient was brought to OR. Pro per patient pause and identification was carried out. She was placed under excellent general endotra cheal anesthesia and a small amount of hair was clipped in the left frontal region. We identified th e region of her left external ventricular drain and this wound was incorporated to include her prior shunt wound as well. This area was sterilely cleansed, prepared, and draped, and proper patient paus e and identification was carried out. The wound was then opened with a combination of sharp, monopol ar and blunt dissection and slightly curved incision incorporating her old incision, we identified he r prior shunt. The ventricular catheter valve and peritoneal catheter were all identified. The marie toneal catheter was freed and moved proximally, and the old valve and ventricular catheter were then removed with brisk egress of CSF from the hole in the skull. This may be quite suspicious of a proxi mal obstruction or valve malfunction. I then turned our attention testing the distal runoff into the peritoneal catheter where she did have satisfactory distal runoff. We then turned our attention to attach a new programmable valve set to 1.0 and the ventricular catheter was trimmed in the sterile fi eld and positioned to the proximal portion of the valve. There was CSF egress from the ventricular c atheter that we had placed as well. We then copiously irrigated the wound and closed the wound in an atomic layers following the sprinkling of vancomycin powder. The patient then emerged from anesthesi a.
[2017-08-19] MEDS ORDERED: CEFAZOLIN 2 GM in Sodium Chloride 0.9% 100 ML IVPB SCH (14:00)
[2017-08-19] MEDS ORDERED: Lidocaine 1% PF 5 ML VIAL ONE (14:51)
[2017-08-19] MEDS ORDERED: Ondansetron HCl/PF 4 MG/2 ML Vial ONE (14:51)
[2017-08-19] MEDS ORDERED: Dexamethasone 20 MG/5 ML VIAL ONE (14:51)
[2017-08-19] MEDS ORDERED: Glycopyrrolate 0.2 MG/ML 5 ML SYRINGE ONE (14:51)
[2017-08-19] MEDS ORDERED: Propofol 200 MG/20 ML VIAL ONE (14:51)
[2017-08-19] MEDS: Insulin Detemir 100 UNITS/ML 20 UNITS in Pre-Filled Syringe 1 EACH SC SCH (15:21)
[2017-08-19] MEDS: Amlodipine 5 MG TAB PO SCH (15:21)
[2017-08-19] MEDS: Lisinopril 2.5 MG TAB PO SCH (15:22)
--- NOTE | 2017-08-19 16:47 | PRG ---
DATE OF SERVICE: 08/19/2017 SUBJECTIVE: Ms. Steven had her surgery today. She has done well postoperatively. She does get hypoxemic, but not severely when she falls asleep. I suspect she has at least mild sleep apnea. She is afebrile, heart rate in the 80s, blood pressure 127/88 this morning. Blood pressure has been stable postoperatively. When I evaluated her, there is no change in her overall clinical condition or exam. She is not in any respiratory distress and is adequately continuing to protect her airway. There is no new lab other than blood glucoses. IMPRESSION: Status post ventriculoperitoneal shunt malfunction, status post revision today. LORNA
[2017-08-19] MEDS: HumaLOG 300 UNITS/3 ML VIAL SC PRN ×2 (17:29→21:21)
--- NOTE | 2017-08-19 17:32 | PRG ---
DATE OF SERVICE: 08/18/2017 SUBJECTIVE: Patient is very alert and awake, and denies headaches, no respiratory symptoms, and she still has a Pedersen catheter in place. OBJECTIVE: VITAL SIGNS: She has been afebrile. EYES: Ocular movements are conjugate for the most part. LUNGS: Symmetric lung sounds. HEART: S1 and S2, regular rate. ABDOMEN: Soft, not distended or tender. LABORATORY DATA: White cell count is 10.4, hemoglobin 11, platelets 164. Normal creatinine. The patient is scheduled for revision of one of the FLEET OPERATIONS MANAGER shunts and replacement of ventricular catheter and a valve. It looks like all the clinical changes were due to dysfunction of the shunt, but witho ut infection. The urinary tract findings are most likely coincidental, but not cause related to the clinical changes.
[2017-08-19] MEDS: CEFAZOLIN/Water 2 GM/20 ML SYRINGE SLOW IVP SCH (19:23)
[2017-08-19] MEDS: Atorvastatin Calcium 40 MG TAB PO SCH (21:21)
[2017-08-20] MEDS: Sodium Chloride 0.9% 1,000 ML IV SCH (00:32)
[2017-08-20] MEDS: CEFAZOLIN/Water 2 GM/20 ML SYRINGE SLOW IVP SCH ×2 (03:52→11:17)
[2017-08-20 06:47] LABS: #Eosinphils 0.1 thou/uL (0.0-0.7); #Lymphocytes 1.3 thou/uL (1.20-3.40); #Monocytes 0.7 thou/uL (0.11-0.59); #Neutrophils 10.2 thou/uL (1.40-6.50); %Basophils 0.1 % (0.0-1.0); %Eosinophils 0.4 % (0.0-10.0); %Lymphocytes 10.8 % (21.0-51.0); %Monocytes 5.8 % (0.0-10.0); %Neutrophils 82.9 % (42.0-75.0); Hemoglobin 11.3 g/dL (12.0-16.0); Mean Corpuscular Volume 84.9 fl (81.0-99.0); Mean Platelet Volume 8.2 fL (7.4-10.4); Platelet Count 277 thou/uL (130-400); RBC Distribution Width 13.5 % (11.5-14.5); Red Blood Cell (RBC) Count 4.05 mill/uL (4.20-5.40); White Blood Cell (WBC) Count 12.3 thou/uL (4.8-10.8)
[2017-08-20 06:59] LABS: Anion Gap 9 mmol/L (10-20); BUN (Urea Nitrogen) 9 mg/dL (7.0-18.7); Calc. Creatinine Clearance 0 mL/min (70-130); Calcium 9.5 mg/dL (7.8-10.44); Carbon Dioxide 28 mmol/L (22-29); Chloride 105 mmol/L (98-107); Estimated GFR-MDRD Greater than 90; Glucose 159 mg/dL (70-105); Potassium 3.9 mmol/L (3.5-5.1); Sodium 138 mmol/L (136-145)
--- NOTE | 2017-08-20 08:15 | PDOC.FM ---
- Subjective Subjective: Patient sitting up in bed this morning. Smiling and interacting appropriately. No acute events overnight. Afebrile, VSS - Objective MAR Reviewed: Yes Vital Signs & Weight: Vital Signs (12 hours) Temp 08/20/17 04:00 98.0 F 08/20/17 00:00 98.1 F Weight Admit Weight 96.615 kg Weight 96.8 g Most Recent Monitor Data Heart Rate from ECG 72 NIBP 140/88 NIBP BP-Mean 104 Respiration from ECG 29 SpO2 100 I&O: 08/19/17 08/20/17 08/21/17 06:59 06:59 06:59 Intake Total 2753 2734 Output Total 3238 2948 Balance -485 -214 Result Diagrams: 08/20/17 06:30 08/20/17 06:30 <Garrett Martínez - Last Filed: 08/20/17 08:14> - Objective Vital Signs & Weight: Vital Signs (12 hours) Temp Pulse Resp BP Pulse Ox 08/20/17 09:04 97 153/97 H 08/20/17 09:02 97 153/97 H 08/20/17 08:00 98.6 F 89 16 95 08/20/17 04:00 98.0 F 08/20/17 00:00 98.1 F Weight Admit Weight 96.615 kg Weight 96.8 g Most Recent Monitor Data Heart Rate from ECG 86 NIBP 135/87 NIBP BP-Mean 109 Respiration from ECG 13 SpO2 100 I&O: 08/19/17 08/20/17 08/21/17 06:59 06:59 06:59 Intake Total 2753 2734 965 Output Total 3238 2948 250 Balance -485 -214 715 Result Diagrams: 08/20/17 06:30 08/20/17 06:30 <Sammy Huang - Last Filed: 08/20/17 11:23> Phys Exam - Physical Examination Constitutional: NAD HEENT: moist MMs wound dressing to left cranium Neck: no JVD Respiratory: no wheezing, no rales Cardiovascular: RRR, no significant murmur Gastrointestinal: soft, non-tender Neurological: moves all 4 limbs Psychiatric: normal affect, A&O x 3 <Garrett Martínez - Last Filed: 08/20/17 08:14> Dx/Plan (1) Hydrocephalus Code(s): G91.9 - HYDROCEPHALUS, UNSPECIFIED Status: Acute Plan: 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 She underwent externalization of ventricular drain 2/2 to a malfunction. Revision was then perfomed on 08/20. She is POD #1 (2) CRACKER SPRAYER (ventriculoperitoneal) shunt status Status: Chronic Plan: see above (3) Hypernatremia Code(s): E87.0 - HYPEROSMOLALITY AND HYPERNATREMIA Status: Chronic Plan: Continue to monitor Pressures appropriate (4) Hypertension Code(s): I10 - ESSENTIAL (PRIMARY) HYPERTENSION Status: Chronic Plan: Appropriate overnight Continue to monitor (5) DM2 (diabetes mellitus, type 2) Status: Chronic QualifierTitle: Diabetes mellitus complication status: with hyperglycemia Plan: Continue Metformin and Levemir 20u SC qAM On moderate SSI, only required 7u yesterday - Plan Plan: Plan: -continue current medication regimen; all chronic conditions well controlled at this time -POD #1 from shunt revision -NS recommendations <Garrett Martínez - Last Filed: 08/20/17 08:14> Attending Addendum - Attending Addendum I personally evaluated the patient and discussed the management with Dr. Martínez. I agree with the History, Examination, Assessment and Plan documented above with any addition or exceptions noted below. <Sammy Huang - Last Filed: 08/20/17 11:23>
[2017-08-20] MEDS: metFORMIN 500 MG TAB PO SCH ×2 (09:01→17:16)
[2017-08-20] MEDS: Amlodipine 5 MG TAB PO SCH (09:02)
[2017-08-20] MEDS: Insulin Detemir 100 UNITS/ML 20 UNITS in Pre-Filled Syringe 1 EACH SC SCH (09:03)
[2017-08-20] MEDS: Lisinopril 2.5 MG TAB PO SCH (09:04)
[2017-08-20] MEDS: HumaLOG 300 UNITS/3 ML VIAL SC PRN ×2 (11:16→21:49)
--- NOTE | 2017-08-20 13:50 | PRG ---
DATE OF SERVICE: 08/20/2017 SUBJECTIVE: Ms. Steven is postoperative day #01 from left-sided ventriculoperitoneal shunt revision. She is doing well. I should note her shunt has a programmable valve and it is set at 1.0. She sta dmitriy she is feeling just fine and would like to transfer to the floor. Neurologically, she is at her baseline with left-sided hemiparesis. We will work on dismissal hopefully within next 24 hours. I kedar martinez ask our medical colleagues please assist in this regard.
--- NOTE | 2017-08-20 19:47 | PRG ---
DATE OF SERVICE: 08/20/2017 Jennifer Steven is doing well today. She is ambulating in the frank with physical therapy. She has no complaints. OBJECTIVE: VITAL SIGNS: She is afebrile, heart rate is in the 70s this afternoon, respiratory rate 15, oximetry is 95 on room air. Blood pressure 158/84. LUNGS: Clear. HEART: Regular rhythm. ABDOMEN: Soft. IMPRESSION: Status post replacement of ventriculoperitoneal shunt clinically doing extremely well. She will continue with her physical therapy and eventually go home. She had been transferred out of the unit this afternoon. She is actually doing quite well post-transfer we will sign off.
[2017-08-20] MEDS: Atorvastatin Calcium 40 MG TAB PO SCH (20:29)
[2017-08-21 06:39] VITALS: BMI 36.6
[2017-08-21 07:39] LABS: #Basophils 0.1 thou/uL (0.0-0.2); #Eosinphils 0.1 thou/uL (0.0-0.7); #Lymphocytes 3.3 thou/uL (1.20-3.40); #Monocytes 0.8 thou/uL (0.11-0.59); #Neutrophils 7.2 thou/uL (1.40-6.50); %Basophils 0.8 % (0.0-1.0); %Eosinophils 1.1 % (0.0-10.0); %Lymphocytes 28.2 % (21.0-51.0); %Monocytes 7.2 % (0.0-10.0); %Neutrophils 62.6 % (42.0-75.0); Hemoglobin 11.8 g/dL (12.0-16.0); Mean Corpuscular Hemoglobin 28.3 pg (27.0-31.0); Mean Corpuscular Volume 85.8 fl (81.0-99.0); Mean Platelet Volume 8.4 fL (7.4-10.4); Platelet Count 254 thou/uL (130-400); RBC Distribution Width 13.7 % (11.5-14.5); Red Blood Cell (RBC) Count 4.18 mill/uL (4.20-5.40); White Blood Cell (WBC) Count 11.6 thou/uL (4.8-10.8)
[2017-08-21] MEDS: Lisinopril 2.5 MG TAB PO SCH (07:52)
[2017-08-21] MEDS: metFORMIN 500 MG TAB PO SCH (07:52)
[2017-08-21] MEDS: Amlodipine 5 MG TAB PO SCH (07:52)
[2017-08-21 07:58] LABS: Anion Gap 12 mmol/L (10-20); BUN (Urea Nitrogen) 11 mg/dL (7.0-18.7); Calc. Creatinine Clearance 220 mL/min (70-130); Calcium 9.2 mg/dL (7.8-10.44); Carbon Dioxide 26 mmol/L (22-29); Chloride 106 mmol/L (98-107); Estimated GFR-MDRD Greater than 90; Glucose 117 mg/dL (70-105); Potassium 3.8 mmol/L (3.5-5.1); Sodium 140 mmol/L (136-145)
--- NOTE | 2017-08-21 08:14 | PDOC.FM ---
- Subjective Subjective: Patient sitting up in bed eating breakfast. She is pleasant and smiling during conversation. Per nursing, neurosurgery just stopped by and would like to discharge patient today. Patient is pain free with no acute events overnight and would like to go home. She is POD #2 from a ventriculoperitoneal shunt revision. - Objective MAR Reviewed: Yes Vital Signs & Weight: Vital Signs (12 hours) Temp Pulse Resp BP BP Pulse Ox 08/21/17 07:52 64 149/113 H 08/21/17 04:00 97.6 F 71 19 138/84 97 08/21/17 00:00 98.0 F 87 18 139/82 97 08/20/17 20:15 98.3 F 83 16 Weight Admit Weight 96.615 kg Weight 96.661 kg Most Recent Monitor Data Heart Rate from ECG 100 NIBP 152/96 NIBP BP-Mean 107 Respiration from ECG 16 SpO2 100 I&O: 08/20/17 08/21/17 08/22/17 06:59 06:59 06:59 Intake Total 2734 2402 Output Total 2948 425 Balance -214 1976 Result Diagrams: 08/21/17 07:32 08/21/17 07:32 <Garrett Martínez - Last Filed: 08/21/17 08:13> - Objective Vital Signs & Weight: Vital Signs (12 hours) Temp Pulse Resp BP BP Pulse Ox 08/21/17 08:52 97.8 F 84 16 138/84 96 08/21/17 07:52 64 149/113 H 08/21/17 07:48 97.8 F 84 16 08/21/17 04:00 97.6 F 71 19 138/84 97 08/21/17 00:00 98.0 F 87 18 139/82 97 Weight Admit Weight 96.615 kg Weight 96.661 kg Most Recent Monitor Data Heart Rate from ECG 100 NIBP 152/96 NIBP BP-Mean 107 Respiration from ECG 16 SpO2 100 I&O: 08/20/17 08/21/17 08/22/17 06:59 06:59 06:59 Intake Total 2734 2402 Output Total 2948 425 Balance -214 1976 Result Diagrams: 08/21/17 07:32 08/21/17 07:32 <Miquel Hung - Last Filed: 08/21/17 11:12> Phys Exam - Physical Examination Constitutional: NAD left cranial wound bandaged- clean, dry, and intact Respiratory: no wheezing, no rales Cardiovascular: RRR, no significant murmur Gastrointestinal: soft, non-tender Neurological: moves all 4 limbs Psychiatric: normal affect, A&O x 3 <Garrett Martínez - Last Filed: 08/21/17 08:13> Dx/Plan (1) Hydrocephalus Code(s): G91.9 - HYDROCEPHALUS, UNSPECIFIED Status: Acute Plan: 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 She underwent externalization of ventricular drain 2/2 to a malfunction. Revision was then perfomed on 08/20. She is POD #2 with no complications and has been cleared for discharge. (2) EGG SMELLER (ventriculoperitoneal) shunt status Status: Chronic Plan: see above (3) Hypertension Code(s): I10 - ESSENTIAL (PRIMARY) HYPERTENSION Status: Chronic Plan: Appropriate overnight but trending upward this morning. Patient is on amlodipine and lisinopril, both of which can be titrated up. Continue to monitor (4) DM2 (diabetes mellitus, type 2) Status: Chronic QualifierTitle: Diabetes mellitus complication status: with hyperglycemia Plan: Continue Metformin and Levemir 20u SC qAM On moderate SSI, only required 4u yesterday - Plan Plan: Plan: -patient continues to be medically stable -discharge pending NS final sign off <Garrett Martínez - Last Filed: 08/21/17 08:13> Attending Addendum - Attending Addendum I personally evaluated the patient and discussed the management with Dr. Martínez. I agree with and repeated villegas portions of the History, Examination, Assessment and Plan documented above with any addition or exceptions noted below. D/w neurosurgery and plan for discharge. Continue management of her chronic medical problems. Follow up with PCP as an outpatient. <Miquel Hung - Last Filed: 08/21/17 11:12>
[2017-08-21] MEDS: Insulin Detemir 100 UNITS/ML 20 UNITS in Pre-Filled Syringe 1 EACH SC SCH (08:54)
[2017-08-21 16:15] VITALS: BP 136/88; TEMP 98.9
--- NOTE | 2017-08-21 16:53 | PRG ---
DATE OF SERVICE: 08/21/2017 POSTOPERATIVE PROGRESS NOTE This is Alfredo Cottrell PA-C, dictating for Dr. Paul Blnaca. Ms. Steven is now postoperative day 2 having undergone a left-sided PROFESSIONAL NURSE shunt proximal revision with Aroldo Blanca. The patient is doing very well. She is sitting up in bed eating breakfast and is asking to go home. Her incision is undressed. Incision is clean, dry, and intact, closed with alice. Th ere is no drainage. The patient is neurologically at her baseline and is very interactive and conver xiomara today. She is now stable for discharge and has met criteria. She is voiding spontaneously, amb ulated and tolerating a solid diet and her pain is well controlled. We have set up appropriate outpa tient followup appointments and she has been cleared by our medical colleagues, [facility]
--- NOTE | 2017-08-22 12:38 | DIS ---
DATE OF ADMISSION: 08/13/2017 DATE OF DISCHARGE: 08/21/2017 Ms. Steven was admitted through [facility] on 08/13/2017 with altered mental status in cluding some confusion, decreased appetite, lethargy and urinary tract infection. A head CT was obta ined that did note hydrocephalus as the patient was ventriculoperitoneal shunt dependent, having unde rgone multiple shunt revisions most recently in 2008. It was decided that an EVD be placed upon admi ssion and this was later internalized after the patient's urinary tract infection cleared on 08/19/19 18. The patient underwent proximal ventriculoperitoneal shunt revision with Dr. Blanca on 08/19/2017 and tolerated the procedure well. At the time of discharge she was tolerating a solid diet, ambulat ing without assistance, voiding spontaneously and had improved neurologic function including improvem ent in energy and stamina. She was more interactive with her family and medical staff. At the time of discharge the patient was given appropriate outpatient follow up and patient education. It should be noted that our medical colleagues as well as Infectious Disease helped to manage the patient's ur inary tract infection and other medical conditions.
== END 2017-08-21 16:18 | disposition home or self-care (01) | DRG 31 ==
LOC: ERS 15:00 → CCU 21:03 → SURG A 08-20 12:55
PROVIDERS: ADMIT Surgery; ATTEND Surgery
PROC: 00160J6 Bypass Cerebral Ventricle to Peritoneal Cavity with Synthetic Substitute, Open Approach (ICD-10-PCS; 2017-08-13)
PROC: 00P60JZ Removal of Synthetic Substitute from Cerebral Ventricle, Open Approach (ICD-10-PCS; principal; 2017-08-19)
PROC: 00160J6 Bypass Cerebral Ventricle to Peritoneal Cavity with Synthetic Substitute, Open Approach (ICD-10-PCS; 2017-08-19)
DX: T85.09XA Other mechanical complication of ventricular intracranial (communicating) shunt, initial encounter (principal); Q28.2 Arteriovenous malformation of cerebral vessels; E87.0 Hyperosmolality and hypernatremia; G91.9 Hydrocephalus, unspecified; N30.00 Acute cystitis without hematuria; G81.94 Hemiplegia, unspecified affecting left nondominant side; E11.65 Type 2 diabetes mellitus with hyperglycemia; B96.20 Unspecified Escherichia coli [E. coli] as the cause of diseases classified elsewhere; E78.5 Hyperlipidemia, unspecified; I10 Essential (primary) hypertension; K21.9 Gastro-esophageal reflux disease without esophagitis; E55.9 Vitamin D deficiency, unspecified; F79 Unspecified intellectual disabilities; Z86.73 Personal history of transient ischemic attack (TIA), and cerebral infarction without residual deficits; Z79.4 Long term (current) use of insulin; Y83.8 Other surgical procedures as the cause of abnormal reaction of the patient, or of later complication, without mention of misadventure at the time of the procedure; Y92.234 Operating room of hospital as the place of occurrence of the external cause
CPT/HCPCS: 36415; 36416; 70450; 71045; 71250; 74177; 75809; 80048; 80053; 81003; 81015; 81025; 84443; 85025; 85652; 86140; 87077; 87086; 87186; 90471; 90682; A4216; A4353; G0008; G8978-GP-CJ; G8979-GP-CJ; G8980-GP-CJ; J0131; J0360; J0690; J0696; J1100; J1815; J1956; J2001; J2250; J2405; J2704; J3010; J3370; J3490; Q2036; S0028

== ENCOUNTER 2017-09-25 12:04 | Inpatient (IN) | payer MEDICARE ==
[2017-09-25 12:41] LABS: #Monocytes 1.1 thou/uL (0.11-0.59); #Neutrophils 11.5 thou/uL (1.40-6.50); %Basophils 0.1 % (0.0-1.0); %Eosinophils 0.2 % (0.0-10.0); %Lymphocytes 13.6 % (21.0-51.0); %Monocytes 7.2 % (0.0-10.0); %Neutrophils 78.9 % (42.0-75.0); Hemoglobin 13.5 g/dL (12.0-16.0); Mean Corpuscular HGB CONC 31.4 g/dL (32.0-36.0); Mean Corpuscular Hemoglobin 27.9 pg (27.0-31.0); Mean Corpuscular Volume 89.1 fl (81.0-99.0); Mean Platelet Volume 11.3 fL (7.4-10.4); Platelet Count 236 thou/uL (130-400); RBC Distribution Width 13.8 % (11.5-14.5); Red Blood Cell (RBC) Count 4.82 mill/uL (4.20-5.40); White Blood Cell (WBC) Count 14.6 thou/uL (4.8-10.8)
[2017-09-25 12:55] LABS: ALT (SGPT) 10 U/L (8-55); AST (SGOT) 10 U/L (5-34); Albumin 4.3 g/dL (3.5-5.0); Alkaline Phosphatase 162 U/L (40-150); Anion Gap 19 mmol/L (10-20); BUN (Urea Nitrogen) 49 mg/dL (7.0-18.7); Bilirubin, Total 0.4 mg/dL (0.2-1.2); Calc. Creatinine Clearance 0 mL/min (70-130); Calcium 9.8 mg/dL (7.8-10.44); Carbon Dioxide 18 mmol/L (22-29); Chloride 124 mmol/L (98-107); Estimated GFR-MDRD 35; Globulin 3.7 g/dL (2.4-3.5); Potassium 4.2 mmol/L (3.5-5.1); Sodium 157 mmol/L (136-145)
[2017-09-25 13:17] LABS: Glucose 737 mg/dL (70-105)
--- NOTE | 2017-09-25 14:18 | RAD ---
SHUNTOGRAM: HISTORY: Headache. COMPARISON: 08/13/17. FINDINGS: Numerous metallic intracranial aneurysm clips and bilateral ventriculostomy shunts remain in place. Tubing descends along each side of the neck and chest, extending to the upper abdomen. An additional radiopaque tubing projects over the right chest/abdomen. There is no discontinuity of catheter appa rent. Metallic clips overlie the abdomen. Metallic filter overlies the inferior vena cava. IMPRESSION: No evidence of ventriculoperitoneal shunt discontinuity. POS: ERICK
--- NOTE | 2017-09-25 14:19 | CT ---
CT HEAD NONCONTRAST: Date: 09/25/17 HISTORY: Headache. CUSTOMER CARE CONSULTANT shunts. COMPARISON: 08/14/17. FINDINGS: Left frontal and right parietal ventriculoperitoneal shunts remain in place with aneurysm clips near the third ventricle. The other, high left frontal catheter is no longer visible. Dilatation of the left lateral ventricle has progressed since the prior study, now with mild distenti on of each temporal horn. Encephalomalacia throughout the right frontal lobe has progressed slightly. Postoperative changes of the cranium are again demonstrated. IMPRESSION: Developing distention of the left lateral ventricle, worrisome for left CUSTOMER CARE CONSULTANT shunt malfunction. Findings called to Dr. Flores in the emergency department at 1408 hours. CODE CR. POS: ERICK
[2017-09-25] MEDS ORDERED: Insulin Regular 300 UNITS/3 ML VIAL ONE (14:33)
--- NOTE | 2017-09-25 14:42 | PDOC.FPRHP ---
- History of Present Illness Chief Complaint: Headache, High Blood Sugar History of Present Illness: This is a 27 y/o F with a PMHx of DM2, HTN, and a ruptured brain aneurysm s/p shunt placement who presented to the ED complaining of headache and elevated glucose. The patient was AOx3, but was lethargic and not very interactive, so some of the history was obtained by the patient and some was obtained by her sister. The patient had an elevated blood sugar last night in the 400's so her sister gave her 20U of NPH, but her glucose continued to increase into the 520' s and then this AM they gave her another 20U of NPH and her glucose increased again to the 570's. She had recently been changed from lantus to levemir due to cost, but the sister reports that she didn't pick it up because it still cost too much. The patient reports that last night around the same time she started having a headache and feeling weak. She describes the headache as L sided 10/10. She took advil and it helped a little. She reports that it was better when she was lying down. The patient reports that she does not get thirsty or hungry since her stroke in 2000 and so because of that she doesn't drink very much water. She has only drank one cup of water this morning. ED Course: The patient was seen and evaluated in the ED by Dr. Flores and given Novolin 10U IVP - Allergies/Adverse Reactions Allergies Allergy/AdvReac Type Severity Reaction Status Date / Time No Known Drug Allergies Allergy Verified 09/25/17 17:50 - Home Medications Medication Instructions Recorded Confirmed Type Amlodipine [Norvasc] 5 mg PO DAILY #0 tab 01/17/15 09/25/17 Rx Atorvastatin Calcium [Lipitor] 40 mg PO HS 01/25/15 09/25/17 History Cholecalciferol (Vitamin D3) 5,000 iu/m2 PO DAILY 01/25/15 09/25/17 History [Vitamin D3] metFORMIN HCl 500 mg PO BID-WM 01/25/15 09/25/17 History Lisinopril [Zestril] 2.5 mg PO DAILY 01/14/17 09/25/17 History Insulin, Isophane Human (NPH) 20 units SC BID 09/25/17 09/25/17 History [NovoLIN N] Comments: Neither the patient nor her sister knows her medications, but the patient's sister will bring her medications up to the hospital later tonight. - History PMHx: 1. Ruptured Aneurysm (8 months old) 2. CVA (2000) 3. DM2 4. HTN 5. HLD 6. Obesity 7. Vitamin D Deficiency PSHx: 1. Shunt placement (8 months old), with multiple revisions 2. Brain tumor removed (2008) 3. Appendectomy 4. Cholecystectomy FHx: Brother: of brain aneurysm Dad: DM2 Social: Lives with dad, Denies tobacco, EtOH, or drug use - Review of Systems General: denies: fever/chills, weight/appetite/sleep changes Eyes: denies: eye pain, vision changes ENT: denies: nasal congestion, rhinorrhea Respiratory: denies: cough, congestion, shortness of breath Cardiovascular: denies: chest pain, palpitation, edema Gastrointestinal: denies: nausea, vomiting, diarrhea, constipation, abdominal pain Genitourinary: denies: dysuria, polyuria Skin: denies: rashes, lesions Musculoskeletal: denies: pain, tenderness, stiffness Neurological: reports: weakness. denies: numbness, syncope, seizure Psychological: denies: anxiety, depression - Vital signs BP: 128/71 HR: 122 RR: 20 Tmax: 98.7 Pox: 98% on RA Wt: 86.18kg - Physical Exam Constitutional: NAD, awake, alert and oriented, well developed HEENT: normocephalic and atraumatic, conjunctiva clear, grossly normal hearing, other (dry mucous membranes) Neck: supple, FROM, no LAD Heart: RRR, normal S1/S2, no murmurs/rubs/gallops, pulses present, no edema Lungs: CTAB, no respiratory distress, good air movement, no rales/rhonchi, no wheezing Abdomen: soft, non-tender, bowel sounds present, no masses/distention Musculoskeletal: normal tone, ROM grossly normal, other (L leg in walking brace) Neurological: no focal deficit, CN II-XII intact Skin: no rash/lesions, good turgor Psychiatric: good judgment and insight, intact recent and remote memory FMR H&P: Results - Labs Result Diagrams: 09/26/17 04:29 09/26/17 08:07 Lab results: WBC 14.6 thou/uL (4.8-10.8) H 09/25/17 12:20 Hgb 13.5 g/dL (12.0-16.0) 09/25/17 12:20 Hct 42.9 % (36.0-47.0) 09/25/17 12:20 MCV 89.1 fl (81.0-99.0) 09/25/17 12:20 Plt Count 236 thou/uL (130-400) 09/25/17 12:20 Neutrophils % 78.9 % (42.0-75.0) H 09/25/17 12:20 Sodium 157 mmol/L (136-145) H 09/25/17 12:20 Potassium 4.2 mmol/L (3.5-5.1) 09/25/17 12:20 Chloride 124 mmol/L (98-107) H 09/25/17 12:20 Carbon Dioxide 18 mmol/L (22-29) L 09/25/17 12:20 BUN 49 mg/dL (7.0-18.7) H 09/25/17 12:20 Creatinine 1.73 mg/dL (0.6-1.1) H 09/25/17 12:20 Glucose 737 mg/dL (70-105) H* 09/25/17 12:20 Lactic Acid 1.8 mmol/L (0.5-2.2) 09/25/17 12:20 Calcium 9.8 mg/dL (7.8-10.44) 09/25/17 12:20 Total Bilirubin 0.4 mg/dL (0.2-1.2) 09/25/17 12:20 AST 10 U/L (5-34) 09/25/17 12:20 ALT 10 U/L (8-55) 09/25/17 12:20 Alkaline Phosphatase 162 U/L (40-150) H 09/25/17 12:20 Serum Total Protein 8.0 g/dL (6.0-8.3) 09/25/17 12:20 Albumin 4.3 g/dL (3.5-5.0) 09/25/17 12:20 - Radiology Interpretation CT scan - head Status: image reviewed by me, report reviewed by me Additional comment: Worsening distension of the Left lateral ventricle FMR H&P: A/P - Problem List (1) Hypernatremia Current Visit: No Status: Chronic Code(s): E87.0 - HYPEROSMOLALITY AND HYPERNATREMIA (2) Hyperosmolar non-ketotic state in patient with type 2 diabetes mellitus Current Visit: No Status: Acute Code(s): E11.01 - TYPE 2 DIABETES MELLITUS WITH HYPEROSMOLARITY WITH COMA (3) Hydrocephalus Current Visit: No Status: Acute Code(s): G91.9 - HYDROCEPHALUS, UNSPECIFIED Comment: s/p external ventricular shunt (4) Leukocytosis Current Visit: Yes Status: Acute Code(s): D72.829 - ELEVATED WHITE BLOOD CELL COUNT, UNSPECIFIED Qualifiers: Leukocytosis type: unspecified Qualified Code(s): D72.829 - Elevated white blood cell count, unspecified (5) Hyperchloremia Current Visit: No Status: Acute Code(s): E87.8 - OTH DISORDERS OF ELECTROLYTE AND FLUID BALANCE, NEC (6) DM2 (diabetes mellitus, type 2) Current Visit: No Status: Chronic Qualifiers: Diabetes mellitus complication status: with hyperglycemia Diabetes mellitus usp insulin use: with rat exterminator use Qualified Code(s): E11.65 - Type 2 diabetes mellitus with hyperglycemia; Z79.4 - rat exterminator (current) use of insulin; Z79.4 - alf (current) use of insulin; Z79.4 - alf ( current) use of insulin; Z79.4 - rat exterminator (current) use of insulin (7) History of CVA (cerebrovascular accident) Current Visit: No Status: Chronic Code(s): Z86.73 - PRSNL HX OF TIA (TIA), AND CEREB INFRC W/O RESID DEFICITS (8) Hypertension Current Visit: No Status: Chronic Code(s): I10 - ESSENTIAL (PRIMARY) HYPERTENSION Qualifiers: Hypertension type: essential hypertension Qualified Code(s): I10 - Essential (primary) hypertension (9) RECONCILIATION COORDINATOR (ventriculoperitoneal) shunt status Current Visit: No Status: Chronic (10) AMOR (acute kidney injury) Current Visit: Yes Status: Acute Code(s): N17.9 - ACUTE KIDNEY FAILURE, UNSPECIFIED - Plan Hypernatremia The patient was significantly hypernatremic with a corrected Na of 172 in the setting of hyperglycemia. The patient has not been drinking any free water in the setting of hyperglycemia, which is likely what caused the hypernatremia. -Nephrology has been consulted, appreciate recs -1/4NS @ 75 mL/hr -300mL of free water PO q4 hours scheduled -BMP q1h, then once the Na is improving can space out to q2h or q4h Hyperosmolar Hyperglycemic State The patient likely got hyperglycemic from the change in insulin regimen. s/p 10U insulin in the ED -Insulin gtt -Glucose checks q1h -Hypoglycemia protocol -Encourage free water by mouth -Fluids as above -Clear liquid diet without juice Hydrocephalus Worsening L lateral ventricle enlargement on CT head. Patient has RECONCILIATION COORDINATOR shunt in place. -Neurosurgery has been consulted, plan is for revision of the shunt on 09/26 if the patient is still symptomatic after the metabolic issues have been resolved. -q2h neuro checks -NPO at midnight AMOR This is likely 2/2 hyperglycemia and hypernatremia -Will give fluids as above and monitor Leukocytosis This is likely 2/2 volume contraction, but could also be infectious or reactive -UA -Recheck in AM DM2 -Insulin gtt as above -Hold home meds HTN -Hold home meds for now, will monitor BP closely and restart if needed h/o CVA -Patient unsure of exact meds at this time. Will reassess after med list. 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 Presents with 1-2 day history of generalized weakness and gradually elevating finger stick glucose. States she had recently switched from Lantus 50 U daily to NPH 70/30 20 U BID. Family states her glucose checks have been steadily increasing starting in the upper 300s and ending in the mid 500s after approximately 48 hours. State at baseline she is A&O x3, ambulatory, but drinks 15 to 20 oz of fluid daily and has had decreased PO intaked during the time of her current illness. - Pertinent findings VS: PB 128/71, Pulse 122, Resp 20, temp 98.7F, pulse ox 98% on RA. ENT: Dry MM, normal posterior oral pharynx. CV: Tachycardic rate, normal rhythm, Pulm: CTA-B, Normal rate, Non-labored. Skin: dry, intact Extremities: brace noted on right ankle/lower leg. Sodium 157, Glucose 737, Creatinine 1.73 (was WNL at time of last d/c) Normal anion gap. Corrected sodium is 173. Serum osmolarity 398, Urine osmolarity 923 CT Brain: interval increase of left ventricular size Shuntogram: No obvious malfunction. - Plan Date/Time: 09/25/17 1440 I, Enoch Ruff M.D., have evaluated this patient and agree with findings/plan as outlined by editing internship resident. Pertinent changes/additions are listed here. Patient received Novolog 10 U x 2 in ER. Sodium corrected for elevated glucose is 173. 1. Hyperosmolor Hyperglycemic State: Likely a complication of free water deficit and recent change in insulin regimen. Will start on Insulin drip at rate of 0.1 units/kg/hr. Will need q2hr BMP with hourly accuchecks until glucose is below 250 mg/dL. Patient to be admitted to [facility] for closer monitoring and frequent neurochecks given her complicated neurologic history. Once stabilized will attempt to better control glucose with NPH in hospital since patient is unable to afford Lantus. 2. 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 Alberts has been consulted. Recommends 1/4NS at 75 mL/hr and 300 mL PO free water every 4 hours. Will closely monitor sodium correction. It is unclear how long she has been hypernatremic. [place] correction rate would be approximately 0.5 mEq per hour since this could be a chronic issue. Will follow up with recommendations from formal Nephro evaluation. 3. Possible Ventricular shunt malformation: Neurosurgery has been consulted and are considering shunt revision if ventricular distention persists after correction of metabolic derangements. 4. AMOR 2/2 volume depletion: will likely resolve with free water repletion. CODE: FULL Dispo: Inpatient, [facility], >2 midnights. Attending Addendum - Attending Addendum Date/Time: 09/26/17 0850 I personally evaluated the patient and discussed the management with Dr. Hernández on 09/25/17. I agree with the History, Examination, Assessment and Plan documented above with any addition or exceptions noted below. Patient with severe hyperglycemia likely causing her severe hypernatremia. Neurosurgery and nephrology consulted and case discussed with them in person. CT head changes likely caused by shunt issues, due to unilateral findings and lack of neurologic changes from her baseline exam. Per nephro recs will replete free water deficit for acute hypernatremia with 1/4 NS and free water PO , while simultaneously correcting glucose with insulin drip. Accucheck and BMP q1h initially, once sodium begins to correct can transition to q2 or q4h BMP. Close monitoring in ICU essential to monitor neurologic status as her electrolytes improve. Once back into a safe range, may consider workup for diabetes insipidus.
[2017-09-25] MEDS ORDERED: Sodium Chloride 0.45% 1,000 ML IV SCH ×2 (14:45→16:41)
[2017-09-25 15:15] LABS: Bilirubin Negative (Negative); Blood, Urine Trace (Negative); Clarity CLEAR (Clear); Glucose, Urine (Dipstick) >=1000 mg/dL (Negative); Leukocyte Small (Negative); Nitrite Negative (Negative); Protein, Urine (Dipstick) 30 mg/dL (Neg-Trace); Urobilinogen 0.2 mg/dL (0.2-1.0); pH, Urine 5.5 (5.0-9.0)
[2017-09-25 15:18] LABS: Bacteria/HPF 1+ HPF (None Seen); Hyaline Casts/LPF 0-3 HYALINE CAST LPF (0-3 Hyaline); Pregnancy Test - Urine (BHCG) Negative (Negative); Pregu Control Background? CLEAR/WHITE (CLR/WHITE); Pregu Control Bar Appear? YES (CONTROL BAR); RBC/HPF 0-3 HPF (0-3); Specific Gravity 1.045 (1.002-1.036); Specific Gravity, Urine 1.045 (1.002-1.036); Squamous Epithelial 0-3 HPF (0-3); Yeast-AUWi Flag 26.6 (0-25.0)
[2017-09-25 15:28] LABS: Yeast-All Forms Rare HPF (None Seen)
[2017-09-25 15:33] LABS: Osmolality, Serum 389 mOsm/kg (280-295)
[2017-09-25 16:15] LABS: Base Excess-Venous -7.2 mmol/L (-30.0-30.0); Bicarbonate (HCO3v) 17.8 mmol/L (1.0-85.0); CO2 Tension (PvCO2) 34.1 mmHg (41.0-51.0); Calcium, Ionized 1.24 mmol/L (1.12-1.32); Hemoglobin - Calc 15.3 g/dL (12.0-18.0); Potassium 3.8 mmol/L (3.4-4.7); T. Carbon Dioxide 18.9 mmol/L (1.0-85.0); pH (Venous) 7.326 (7.35-7.45)
[2017-09-25] MEDS ORDERED: Ondansetron ODT 4 MG TAB SL PRN (16:32)
[2017-09-25] MEDS ORDERED: Ondansetron HCl/PF 4 MG/2 ML Vial IVP PRN (16:32)
[2017-09-25] MEDS ORDERED: Acetaminophen 325 MG TAB PO PRN (16:32)
[2017-09-25] MEDS ORDERED: Dextrose 5% in Water 1,000 ML IV PRN (16:41)
[2017-09-25] MEDS ORDERED: Dextrose 50% Abboject 50 ML SYRINGE SLOW IVP PRN (16:41)
[2017-09-25] MEDS ORDERED: Sodium Chloride 38.44 MEQ in Sterile Water Injection 990.39 ML IV SCH (16:45)
[2017-09-25 16:56] VITALS: BMI 33.7
[2017-09-25] MEDS ORDERED: STERILE WATER IV SCH (17:00)
[2017-09-25] MEDS ORDERED: SODIUM CHLORIDE IV SCH (17:00)
[2017-09-25 17:14] LABS: Anion Gap 20 mmol/L (10-20); BUN (Urea Nitrogen) 48 mg/dL (7.0-18.7); Calc. Creatinine Clearance 70 mL/min (70-130); Calcium 10.2 mg/dL (7.8-10.44); Carbon Dioxide 15 mmol/L (22-29); Estimated GFR-MDRD 36; Potassium 3.8 mmol/L (3.5-5.1); Sodium 160 mmol/L (136-145)
[2017-09-25 17:19] LABS: Chloride 129 mmol/L (98-107); Glucose 636 mg/dL (70-105)
[2017-09-25] MEDS: STERILE WATER IV SCH (17:21)
[2017-09-25] MEDS: SODIUM CHLORIDE IV SCH (17:21)
[2017-09-25] MEDS ORDERED: FLU VACC QS2017-18 36 mo. & older 0.5 ML SYRINGE IM ONE (17:30)
[2017-09-25 18:30] LABS: Anion Gap 19 mmol/L (10-20); BUN (Urea Nitrogen) 45 mg/dL (7.0-18.7); Calc. Creatinine Clearance 77 mL/min (70-130); Carbon Dioxide 18 mmol/L (22-29); Chloride 128 mmol/L (98-107); Estimated GFR-MDRD 40; Glucose 590 mg/dL (70-105); Potassium 3.5 mmol/L (3.5-5.1); Sodium 161 mmol/L (136-145)
--- NOTE | 2017-09-25 18:31 | CON ---
DATE OF CONSULTATION: 09/25/2017 Alfredo Cottrell PA-C, dictating for Paul Blanca MD This is a 50-minute initial patient consult in which greater than 50% of the exam was spent counselin g and coordinating patient's care. The remainder of the exam was spent review of patient's medical r ecords and appropriate imaging studies. CHIEF COMPLAINT: Fatigue, lethargy and headache for the past one day. HISTORY OF PRESENT ILLNESS: Ms. Steven is a pleasant 27-year-old female, who has a history of underg oing a proximal ANIMAL CARETAKER shunt revision with Dr. Blanca on 08/19/2017. The patient is able to provide a sm all amount of her history and her sister also provides history. The patient apparently is an insulin -dependent type 2 diabetic, has not been eating or drinking for the past 1 to 2 days. The patient no dmitriy feeling more fatigued over the past 1 to 2 days and has had a left frontal area headache for the past 6 to 8 hours. The patient's sister also notes that she is less interactive over the past 24 pedro rs and again just appears to be overall not willing to participate in conversations. They are concer shilho that her shunt has malfunctioned as this is similar to what she experienced in July. Review o f the patient's head CT when compared to 08/13/2017 prior to an EVD being placed on 08/14/2017 and , which is postoperatively shows a slight enlargement of the left ventricle compared to the C T scan done 08/14/2017 when her EVD was placed; however, the ventricles still remain smaller when com pared to her presenting CT on 08/13/2017. Review of the patient's shunt series today shows no issue with the shunt tubing. Of note, the patient's blood glucose is currently 737. Her serum osmolality is 389 and her sodium is 157. PHYSICAL EXAMINATION: The patient is awake, alert, and appropriate. She does appear to be a little more lethargic than she was when seen on an outpatient basis for her followup roughly 3 weeks ago. S he again; however, is interactive and occasionally is able to joke around during the exam. She follo ws commands in all 4 extremities, though has a stable left upper greater than left lower extremity we akness. She also has a contracture of the left hand that is also stable. She is able to correctly i dentify a pen and correctly define an island. She is oriented to person and eventually oriented to p lace and time. She has no pronator drift on the right and she is able to complete index finger to no se on the right without difficulty. She does have a slight amount of nystagmus, but again fund amoun t of nystagmus. Pupils are equal, round, reactive bilaterally, although she has significant right ey e lateral deviation. Again, this is stable for the patient. IMPRESSION AND DIAGNOSES: 1. Diabetic ketoacidosis with history of insulin-dependent type 2 diabetes. 2. Hypernatremia. 3. History of ventriculomegaly with proximal ventriculoperitoneal shunt revision, most recently on 08/19/[address] Blanca. PLAN: I have discussed the patient's case and imaging with Dr. Blanca. I have also discussed the ca se with Latin Teacher Dr. Jes Hernández who will admit the patient and help correct the dipak ent's metabolic issues. It is likely that the hyperglycemia may be causing temporary ANIMAL CARETAKER shunt malfun ction. At the time of surgery and currently, the patient had a programmable Strata valve that was at 1.0. I have changed this setting to 0.5 and hope that we can help decrease the size of the patient' s ventricle and improve her neurologic status. Nonetheless, we will make the patient n.p.o. and tent atively plan for proximal ANIMAL CARETAKER shunt revision tomorrow afternoon. However, it does appear that the pat ient is slowly improving neurologically in regards to energy and should her metabolic issues be under better control, this may help her avoid the shunt revision. I have ordered a head CT of the brain w ithout contrast to be completed in the morning. We will reassess the patient in the morning, but aga in hope for a significant improvement in her metabolic issues again to help her avoid surgery. At th e time of the shunt reprogramming, the patient's family was not at bedside to be updated, we will upd ate them tomorrow. The patient currently is agreeable to this plan and tolerated the shunt reprogram nilesh well. Please call with any questions or changes in patient's neurologic status. Otherwise, we will followup on a head CT and repeat labs in the morning as directed by Family Medicine.
[2017-09-25 19:32] LABS: Anion Gap 16 mmol/L (10-20); BUN (Urea Nitrogen) 46 mg/dL (7.0-18.7); Calc. Creatinine Clearance 84 mL/min (70-130); Calcium 10.2 mg/dL (7.8-10.44); Carbon Dioxide 19 mmol/L (22-29); Chloride 131 mmol/L (98-107); Estimated GFR-MDRD 44; Glucose 402 mg/dL (70-105); Potassium 3.3 mmol/L (3.5-5.1); Sodium 163 mmol/L (136-145)
[2017-09-25 21:58] LABS: Anion Gap 16 mmol/L (10-20); BUN (Urea Nitrogen) 45 mg/dL (7.0-18.7); Calc. Creatinine Clearance 99 mL/min (70-130); Carbon Dioxide 20 mmol/L (22-29); Chloride 132 mmol/L (98-107); Estimated GFR-MDRD 54; Glucose 178 mg/dL (70-105); Potassium 3.5 mmol/L (3.5-5.1); Sodium 164 mmol/L (136-145)
[2017-09-26 01:56] LABS: Anion Gap 15 mmol/L (10-20); BUN (Urea Nitrogen) 47 mg/dL (7.0-18.7); Calc. Creatinine Clearance 95 mL/min (70-130); Calcium 9.7 mg/dL (7.8-10.44); Carbon Dioxide 21 mmol/L (22-29); Chloride 130 mmol/L (98-107); Estimated GFR-MDRD 52; Glucose 169 mg/dL (70-105); Potassium 3.6 mmol/L (3.5-5.1); Sodium 162 mmol/L (136-145)
[2017-09-26 05:04] LABS: #Basophils 0.1 thou/uL (0.0-0.2); #Eosinphils 0.1 thou/uL (0.0-0.7); #Lymphocytes 2.9 thou/uL (1.20-3.40); #Monocytes 1.3 thou/uL (0.11-0.59); #Neutrophils 11.8 thou/uL (1.40-6.50); %Basophils 0.3 % (0.0-1.0); %Eosinophils 0.7 % (0.0-10.0); %Lymphocytes 17.9 % (21.0-51.0); %Monocytes 7.8 % (0.0-10.0); %Neutrophils 73.3 % (42.0-75.0); Hemoglobin 12.9 g/dL (12.0-16.0); Mean Corpuscular HGB CONC 31.7 g/dL (32.0-36.0); Mean Corpuscular Hemoglobin 26.8 pg (27.0-31.0); Mean Corpuscular Volume 84.6 fl (81.0-99.0); Mean Platelet Volume 11.1 fL (7.4-10.4); Platelet Count 141 thou/uL (130-400); RBC Distribution Width 13.7 % (11.5-14.5); White Blood Cell (WBC) Count 16.1 thou/uL (4.8-10.8)
[2017-09-26] MEDS: STERILE WATER IV SCH ×2 (06:15→21:04)
[2017-09-26] MEDS: SODIUM CHLORIDE IV SCH ×2 (06:15→21:04)
--- NOTE | 2017-09-26 06:34 | CON ---
DATE OF CONSULTATION: 09/25/2017 CONSULTING PHYSICIAN: REASON FOR CONSULTATION: Hypernatremia. REASON FOR ADMISSION: Hyperglycemia. HISTORY OF PRESENT ILLNESS: This is a 27-year-old female with history of hypertension, type 2 diabet es, CVA, brain aneurysm with shunt malformation and shunt placement, came to the hospital with hyperg lycemia and was found to have hypernatremia. Nephrology is consulted. No fever or chills. No nause a or vomiting reported. PAST SURGICAL HISTORY: Positive for brain surgery, appendectomy, cholecystectomy, MANAGER INTERFACE shunt. HOME MEDICATIONS: . ALLERGIES: No known drug allergies. SOCIAL HISTORY: No smoking or alcohol use. FAMILY HISTORY: No history of kidney disease. REVIEW OF SYSTEMS: The following complete review of systems was negative, unless otherwise mentioned in the HPI or below: Constitutional: Weight loss or gain, ability to conduct usual activities. Skin: Rash, itching. Eyes: Double vision, pain. ENT/Mouth: Nose bleeding, neck stiffness, pain, tenderness. Cardiovascular: Palpitations, dyspnea on exertion, orthopnea. Respiratory: Shortness of breath, wheezing, cough, hemoptysis, fever or night sweats. Gastrointestinal: Poor appetite, abdominal pain, heartburn, nausea, vomiting, constipation, or diarr hea. Genitourinary: Urgency, frequency, dysuria, nocturia. Musculoskeletal: Pain, swelling. Neurologic/Psychiatric: Anxiety, depression. Allergy/Immunologic: Skin rash, bleeding tendency. PHYSICAL EXAMINATION: GENERAL: This is an obese female, in no apparent distress. VITAL SIGNS: Temperature 97.9, pulse 99, respiratory rate 16, blood pressure 114/60. LABORATORY DATA: Hemoglobin 13.4. Potassium is 3.5, sodium is 164, chloride is 132, BUN is 45, crea tinine is 1.18, glucose is 402. ASSESSMENT AND PLAN: 1. Hypernatremia. Agree with free water. Continue orally free water and IV free water as tolerated . Recommend half NS. D5 water is not possible due to the hyperglycemia. 2. Hyperchloremia. Continue free water. 3. Hypokalemia, replaced. 4. Edema, controlled. 5. Hypertension. 6. History of MANAGER INTERFACE shunt. 7. Obesity. 8. Plan is to continue free water. We will monitor renal function. 9. Acute kidney injury on chronic kidney stage 3. We will monitor renal function. Thank you for the consult. Continue free water supplementation and monitor sodium closely. We will follow.
[2017-09-26 06:38] LABS: Anion Gap 14 mmol/L (10-20); BUN (Urea Nitrogen) 43 mg/dL (7.0-18.7); Calc. Creatinine Clearance 92 mL/min (70-130); Calcium 9.2 mg/dL (7.8-10.44); Carbon Dioxide 20 mmol/L (22-29); Estimated GFR-MDRD 48; Glucose 224 mg/dL (70-105); Sodium 159 mmol/L (136-145)
[2017-09-26 06:40] LABS: Chloride 129 mmol/L (98-107)
[2017-09-26] MEDS ORDERED: Dextrose 5% in Water 1,000 ML IV PRN (06:51)
[2017-09-26] MEDS ORDERED: Dextrose 50% Abboject 50 ML SYRINGE SLOW IVP PRN (06:51)
[2017-09-26] MEDS ORDERED: HumaLOG 300 UNITS/3 ML VIAL SC PRN (06:51)
[2017-09-26] MEDS ORDERED: NPH, Human Insulin Isophane 300 UNIT/3 ML VIAL SC SCH ×3 (06:56→15:33)
--- NOTE | 2017-09-26 07:42 | PDOC.FM ---
- Subjective Subjective: CC: Feeling better HPI: Patient states she does not feel as weak and her headache has improved. Reports feeling thirsty and like her mouth is dry. Informed her she cannot eat until neurosurgery clears her. She expressed understanding. - Objective MAR Reviewed: Yes Vital Signs & Weight: Vital Signs (12 hours) Temp Pulse Resp BP Pulse Ox 09/26/17 04:10 99.2 F 103 H 18 124/78 99 09/26/17 00:17 98.9 F 97 16 126/66 97 09/25/17 22:08 99 16 114/60 99 09/25/17 20:12 97.9 F 101 H 16 124/72 100 Weight Weight 91.711 kg I&O: 09/25/17 09/26/17 09/27/17 06:59 06:59 06:59 Intake Total 1847.4 Output Total 400 Balance 1447.4 Result Diagrams: 09/26/17 04:29 09/26/17 04:29 Radiology Reviewed by me: Yes (CT brain, appears to have improved distention. offical read pending. ) <Enoch Ruff W - Last Filed: 09/26/17 07:40> - Objective Vital Signs & Weight: Vital Signs (12 hours) Temp Pulse Resp BP Pulse Ox 09/26/17 07:27 99.2 F 103 H 18 100 09/26/17 07:26 99.0 F 99 18 123/85 100 09/26/17 04:10 99.2 F 103 H 18 124/78 99 09/26/17 00:17 98.9 F 97 16 126/66 97 Weight Weight 91.711 kg I&O: 09/25/17 09/26/17 09/27/17 06:59 06:59 06:59 Intake Total 1847.4 Output Total 400 Balance 1447.4 Result Diagrams: 09/26/17 04:29 09/26/17 08:07 <Paul Dye - Last Filed: 09/26/17 11:02> Phys Exam - Physical Examination Constitutional: NAD HEENT: sclera anicteric dry MM Respiratory: no wheezing, clear to auscultation bilateral Cardiovascular: RRR, no significant murmur Gastrointestinal: soft, non-tender Musculoskeletal: no edema Neurological: non-focal, moves all 4 limbs Psychiatric: normal affect, A&O x 3 Skin: no rash, cap refill <2 seconds <Enoch Ruff - Last Filed: 09/26/17 07:40> Dx/Plan (1) Hyperosmolar non-ketotic state in patient with type 2 diabetes mellitus Code(s): E11.01 - TYPE 2 DIABETES MELLITUS WITH HYPEROSMOLARITY WITH COMA Status: Acute (2) Hypernatremia Code(s): E87.0 - HYPEROSMOLALITY AND HYPERNATREMIA Status: Chronic (3) AMOR (acute kidney injury) Code(s): N17.9 - ACUTE KIDNEY FAILURE, UNSPECIFIED Status: Acute (4) CRTT (ventriculoperitoneal) shunt status Status: Chronic (5) Leukocytosis Code(s): D72.829 - ELEVATED WHITE BLOOD CELL COUNT, UNSPECIFIED Status: Acute QualifierTitle: Leukocytosis type: unspecified Qualified Code(s): D72.829 - Elevated white blood cell count, unspecified (6) UTI (urinary tract infection) Status: Acute QualifierTitle: Urinary tract infection type: acute cystitis Hematuria presence: without hematuria Qualified Code(s): N30.00 - Acute cystitis without hematuria (7) DM2 (diabetes mellitus, type 2) Status: Chronic QualifierTitle: Diabetes mellitus complication status: with hyperglycemia Diabetes mellitus bed bug exterminator insulin use: with intermediate use Qualified Code(s ): E11.65 - Type 2 diabetes mellitus with hyperglycemia; Z79.4 - moth exterminator ( current) use of insulin; Z79.4 - senior care (current) use of insulin; Z79.4 - senior care (current) use of insulin; Z79.4 - moth exterminator (current) use of insulin (8) History of CVA (cerebrovascular accident) Code(s): Z86.73 - PRSNL HX OF TIA (TIA), AND CEREB INFRC W/O RESID DEFICITS Status: Chronic (9) Hypertension Code(s): I10 - ESSENTIAL (PRIMARY) HYPERTENSION Status: Chronic QualifierTitle: Hypertension type: essential hypertension Qualified Code( s): I10 - Essential (primary) hypertension - Plan Plan: Hospital day 2 1. Hyperosmoler Hyperglycemic state - Glucose improved with insulin GTT. Will stop and start NPH 25 units BID with sliding scale coverage. - Likely triggered by change in insulin regimen and possible UTI - Q2hr accuchecks with Q4hr BMP until sodium and glucose normalize 2. Hypernatremia - Current free water deficit 7.5L, Decreased from approx 10 L. - continue 1/4 NS at 75 mL per hour. Goal correction remains approximately 0.5 mEq per hour since unsure of acute vs chronic - will resume PO free water once cleared by neurosurgery - Nephrology following, appreciate recs. 3. Hx Hydrocephalus with CRTT shunt placement and recent revision - official read pending on repeat CT scan but ventricular edema appears to be improving. - Neurosurgery consulted, will await further recommendations 4. AMOR on CKD3. - creatinine essentially unchanged. - continue fluids as dictated above and monitor - baseline CR 0.9 5. Leukocytosis - acute phase reactant vs UTI. - urine culture sent. - trend daily CBC 6. IDDM - See plan for #1 7. HTN - holding amlodipine and lisinopril for now, will restart once stable 8. HLD - hold lipitor for now PPx: SCD, lovenox held for possible surgery DISPO: 2-3 additional days likely needed. <Enoch Ruff W - Last Filed: 09/26/17 07:40> Attending Addendum - Attending Addendum Date/Time: 09/26/17 1082 I personally evaluated the patient and discussed the management with Dr. Ruff. I agree with the History, Examination, Assessment and Plan documented above with any addition or exceptions noted below. Patient continues to be critically ill, but stable and somewhat improved. She denies complaints this morning, and says her headache is better. She remembers having a headache in the days prior to admission, but unaware of other events preceding her admission. Her blood sugar is now in a safe range. Will discontinue insulin drip, start on diet, and begin her home insulin regimen with adjustments as needed. She continues to be profoundly hypernatremic from her true dehydration. She continues on 1/4 NS to help with free water delivery. Will need frequent checks of sodium to ensure she is not correcting too rapidly. NSGY declines surgical intervention at this time, CT scans stable from yesterday. Anticipate several more days of hospitalization due to her severe illness. <Paul Dye - Last Filed: 09/26/17 11:02>
[2017-09-26 08:41] LABS: Anion Gap 15 mmol/L (10-20); BUN (Urea Nitrogen) 45 mg/dL (7.0-18.7); Calc. Creatinine Clearance 95 mL/min (70-130); Calcium 9.2 mg/dL (7.8-10.44); Carbon Dioxide 21 mmol/L (22-29); Estimated GFR-MDRD 50; Glucose 236 mg/dL (70-105); Potassium 3.6 mmol/L (3.5-5.1); Sodium 160 mmol/L (136-145)
[2017-09-26 08:43] LABS: Chloride 128 mmol/L (98-107)
--- NOTE | 2017-09-26 09:19 | CT ---
PRELIMINARY REPORT/[facility]/EMERGENCY AFTER HOURS PROCEDURE: EXAM: CT Head Without Intravenous Contrast EXAM DATE/TIME: 09/26/2017 5:01 AM CLINICAL HISTORY: 27 years old, female; Pain and condition or disease; Other: Hydrocephalus; Headache; Prior surgery; P atient HX: Pt C/O BARON; HX of hydrocephalus TECHNIQUE: Axial computed tomography images of the head/brain without intravenous contrast. COMPARISON: CT Brain WO Con 2017-09-25 14:02 FINDINGS: Brain: There has been no significant change since previous exam. Again noted are extensive postsurgic al changes involving the right hemisphere with multiple metallic clips and encephalomalacia centered in the right frontal region. No hemorrhage. No significant white matter disease. Ventricles: Bilateral ventriculostomy catheters are again noted with stable mild dilatation of the le ft lateral ventricle. Bones/joints: Craniotomy defects. No acute fracture. Soft tissues: Unremarkable. Sinuses: Unremarkable as visualized. No acute sinusitis. Mastoid air cells: Unremarkable as visualized. No mastoid effusion. IMPRESSION: 1. There has been no significant change since previous exam. Again noted are extensive postsurgical c hanges involving the right hemisphere with multiple metallic clips and encephalomalacia centered in t he right frontal region. 2. Bilateral ventriculostomy catheters are again noted with stable mild dilatation of the left latera l ventricle. Thank you for allowing us to participate in the care of your patient. Dictated and Authenticated by: Sarah Prabhakar MD 09/26/2017 5:35 AM Central Time ([place] & [place]) FINAL REPORT HEAD CT: COMPARISON: 09/25/17. HISTORY: Hydrocephalus. FINDINGS: This report is in agreement with the preliminary report by [facility] [email or web address]]. Redemonstration of prominence of the ventricular system as well as postsurgical changes. There is a stable associated encephalomalacia i n the right frontal region. Stable-appearing ventriculostomy catheters. IMPRESSION: No significant interval change. POS: ERICK
[2017-09-26] MEDS: HumaLOG 300 UNITS/3 ML VIAL SC PRN ×3 (10:01→14:11)
[2017-09-26] MEDS ORDERED: Potassium Chloride 20 MEQ TAB PO SCH (10:15)
--- NOTE | 2017-09-26 11:08 | CON ---
DATE OF SERVICE: 09/26/2017 SERVICE: Pulmonary Medicine. REASON FOR CONSULT: CU patient. HISTORY OF PRESENT ILLNESS: The patient is a 27-year-old female with past medical history s ignificant for ruptured aneurysm and type 2 diabetes mellitus. She was in her usual state of health until about a month ago. At that time, she got converted off of the long-acting insulin on to short- acting insulin. Her blood sugars then became very elevated. She had polyuria and polydipsia. She w as waking up frequently in the middle of the night in order to urinate. Because of her polydipsia, h er dad told her that was the reason she was waking up frequently to urinate. He told her to cut off all fluid in the evening time, and into the night. After she did this, she started having slow progr ess and increase in headache. She presented to the Emergency Department and was discovered to have h igh blood sugars. Overnight, she was given some free water. Her sodium improved significantly. She currently denies any fevers, chills, nausea, vomiting or chest discomfort. Her headache is present, but she indicates to me that it is essentially at baseline. She has a chronic headache. PAST MEDICAL HISTORY: 1. Type 2 diabetes mellitus. 2. Hypertension. 3. Hyperlipidemia. 4. Morbid obesity. 5. Vitamin D deficiency. 6. History of CVA in 2000. 7. 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 PAST SURGICAL HISTORY: 1. Shunt placement at 8 months of age with multiple revisions. 2. Excision of brain tumor in 2008. 3. Appendectomy. 4. Cholecystectomy. FAMILY HISTORY: Noncontributory. SOCIAL HISTORY: She lives with her dad. Denies any alcohol, tobacco or illicit drugs. She has no e xposure to chemicals, dust, asbestos, or tuberculosis. ALLERGIES: No known drug allergies. MEDICATIONS LIST: Her inpatient medications were reviewed. No updates were made at this time. PHYSICAL EXAMINATION: VITAL SIGNS: Afebrile with a T-max of 99.2, pulse 103, blood pressure 123/85, respirations 18, satur ation 100% on room air. GENERAL: The patient is awake, alert, no apparent distress. LUNGS: Excellent air entry. There is no prolonged expiratory phase, wheezing, rhonchi or crackles. HEART: Normal rate, regular. ABDOMEN: Soft, nontender, nondistended. Bowel sounds are positive. MUSCULOSKELETAL: No cyanosis or clubbing. There is no pitting in the bilateral lower extremities. NEUROLOGIC: She has got dense hemiplegia of the left side with contraction. LABORATORY DATA: WBC 16.1, hemoglobin 12.9, platelets 141,000. A pH 7.32, pCO2 34, pO2 111. Chlori de has improved to 128. Potassium 3.6, sodium has improved to 160, creatinine 1.27 and trending down colbert. Urine sugar is quite elevated. There is some protein and ketones. Osmolality of the urine i s 923. Urine is negative. IMAGIN. CT of the brain demonstrates no acute intracranial abnormality. There is distention of the left ventricle which Neurosurgery did not seem to think was contributing to her underlying condition. 2. Shuntogram demonstrates no evidence of OIL PAINTER shunt discontinuity. 3. A repeat CT of brain demonstrates no significant change since prior exam. ASSESSMENT: 1. Type 2 diabetes mellitus with hyperglycemia. 2. Dehydration, severe. 3. Hypernatremia, improving. 4. Acute kidney injury. DISCUSSION AND PLAN: I agree with the free water replacement. I believe she essentially got dehydra judy because of polyuria state, which she stopped compensating for. Pulmonary Critical Care will cont inue to follow while the patient remains in this location, but from my perspective, she is stable for transition to the floor. Please call with additional questions or concerns.
--- NOTE | 2017-09-26 13:16 | CON ---
DATE OF CONSULTATION: 09/26/2017 Ms. Steven is well known to me. She is a 27-year-old woman that has had multiple shunt revisions. 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 She subse quently had left-sided hemiplegia and ocular motility issues related to this along with shunt-depende nt hydrocephalus. She has a history of right-sided shunting and presented in 07/2017 with concern of shunt failure on the left side. I placed an external ventricular drain emergently and she did impro ve. This was set at 10 cm of water. As such, I took her to surgery approximately a week later and i nterrogated the left-sided ventriculoperitoneal shunt. It was quite clear that there was a proximal obstruction. I removed that shunt along with the valve and I tested the distal runoff and the distal runoff was fine. The then put a programmable valve attached to a new ventricular catheter and attached that to the exi sting peritoneal catheter. The shunt valve was set at 1.0. The patient postoperatively did signific antly well and improved back to her neurological baseline. She was seen in followup. Her wound was healing well and we were quite pleased with how she was doing. Yesterday she presented back with h eadache and generalized malaise. Unfortunately, she was found to have a urinary tract infection with a blood sugar of 737, a sodium of 157 which would be consistent with significant dehydration related to diabetic ketoacidosis. I reviewed a head CT that was done by the emergency room given the headac he and there was some enlargement of the ventricles compared after we placed the external ventricular drain. However, compared to the head CT done on 08/13/2017, the day before her ventricles were not as enlarged. On 08/13/2017 she had clear her shunt malfunction. We then decreased the shunt valve s etting to 0.[address] head CT was done this morning with a central stability in the ventricular caliber just slightly decreased compared to yesterday. Neurologically; however, this morning the patient looks quite improved. Family Medicine Team is work ing on correcting her diabetic ketoacidosis and the patient is alert. She denies headache and is int eractive at her baseline. There are no issues with her shunt wound and frankly I do not suspect an a ctive shunt malfunction at this time. What I suspect is the culprit is due to profound elevation in her blood sugar, likely had profound el evation in the glucose in her CSF. This likely lead to increased viscosity of her CSF and essential decrease in the effectiveness of her shunt. My contention is again that the patient is now set at 0. 5. Hopefully, we can coupled with the control of her blood sugar and the correction of her diabetic ketoacidosis we can prove that her shunt is working fine and avoid yet another shunt revision on this patient. We have confirmed that she is set at 0.5. Neurologically, she is improved and metabolical ly she is improving. I would be fine with her eating today and I have canceled the plan for shunt re vision. Again, if we can control her blood sugar and her diabetic ketoacidosis, which was likely tri ggered by her urinary tract infection, I would contend that we could save this patient from having ye t another shunt revision surgery. I discussed all this with the patient, the nurse and the Family In kaye Team. DIAGNOSES: 1. Diabetic ketoacidosis, likely triggered by urinary tract infection. 2. History of shunt dependent hydrocephalus with shunt revision in 07/2017.
--- NOTE | 2017-09-26 16:07 | PRG ---
NEPHROLOGY PROGRESS NOTE DATE OF SERVICE: 09/26/2017 SUBJECTIVE: Patient was seen and examined at bedside and overnight events noted. Patient denies any shortness of breath or chest pain or palpitation. No history of nausea or vomiting or diarrhea or f ever or chills or cramps. OBJECTIVE: GENERAL: This is an obese female in no apparent distress. VITAL SIGNS: Temperature 98.5, pulse 90, respiratory rate 16 and blood pressure 126/77. HEENT: Atraumatic, normocephalic. Oral mucosa is moist. NECK: Supple. CARDIOVASCULAR: S1, S2 heard. Rate and rhythm regular. RESPIRATORY: Clear to auscultation. GASTROINTESTINAL: Abdomen is soft. MUSCULOSKELETAL: No tenderness. No edema. DERMATOLOGIC: No skin rash. NEUROLOGIC: Alert and awake and oriented x3. No focal neurologic deficits. Moving all the extremit ies. PSYCHIATRIC: Mood and affect normal. LABORATORY DATA: Potassium is 3.6, sodium is 160, BUN is 45, creatinine is 1.27 and glucose is 236. ASSESSMENT AND PLAN: 1. Hyponatremia. Agree with free water and sodium level is getting better. She was n.p.o. last nig ht, that is why there is no significant improvement. We will continue on free water. 2. Hyperchloremia. 3. Acidosis, mild. 4. 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 5. Edema. 6. Hypertension. Overall, stable. We will follow.
[2017-09-26 18:06] LABS: Anion Gap 12 mmol/L (10-20); BUN (Urea Nitrogen) 37 mg/dL (7.0-18.7); Calc. Creatinine Clearance 105 mL/min (70-130); Calcium 9.1 mg/dL (7.8-10.44); Carbon Dioxide 22 mmol/L (22-29); Estimated GFR-MDRD 56; Glucose 123 mg/dL (70-105); Potassium 3.3 mmol/L (3.5-5.1); Sodium 157 mmol/L (136-145)
[2017-09-26 18:12] LABS: Chloride 126 mmol/L (98-107)
[2017-09-26] MEDS: NPH, Human Insulin Isophane 300 UNIT/3 ML VIAL SC SCH (20:54)
[2017-09-26 22:25] LABS: Anion Gap 15 mmol/L (10-20); BUN (Urea Nitrogen) 36 mg/dL (7.0-18.7); Calc. Creatinine Clearance 83 mL/min (70-130); Calcium 8.9 mg/dL (7.8-10.44); Carbon Dioxide 15 mmol/L (22-29); Chloride 128 mmol/L (98-107); Estimated GFR-MDRD 43; Glucose 450 mg/dL (70-105); Potassium 4.4 mmol/L (3.5-5.1); Sodium 154 mmol/L (136-145)
[2017-09-27 01:19] LABS: Anion Gap 12 mmol/L (10-20); BUN (Urea Nitrogen) 32 mg/dL (7.0-18.7); Calc. Creatinine Clearance 109 mL/min (70-130); Calcium 8.9 mg/dL (7.8-10.44); Carbon Dioxide 22 mmol/L (22-29); Chloride 122 mmol/L (98-107); Estimated GFR-MDRD 59; Glucose 326 mg/dL (70-105); Potassium 3.2 mmol/L (3.5-5.1); Sodium 153 mmol/L (136-145)
[2017-09-27] MEDS: HumaLOG 300 UNITS/3 ML VIAL SC PRN ×4 (04:01→16:56)
[2017-09-27 06:13] LABS: #Eosinphils 0.1 thou/uL (0.0-0.7); #Lymphocytes 2.8 thou/uL (1.20-3.40); #Monocytes 0.6 thou/uL (0.11-0.59); #Neutrophils 5.9 thou/uL (1.40-6.50); %Basophils 0.4 % (0.0-1.0); %Eosinophils 0.9 % (0.0-10.0); %Lymphocytes 29.7 % (21.0-51.0); %Monocytes 6.4 % (0.0-10.0); %Neutrophils 62.6 % (42.0-75.0); Hemoglobin 10.3 g/dL (12.0-16.0); Mean Corpuscular HGB CONC 32.2 g/dL (32.0-36.0); Mean Corpuscular Hemoglobin 27.3 pg (27.0-31.0); Mean Corpuscular Volume 84.8 fl (81.0-99.0); Mean Platelet Volume 10.8 fL (7.4-10.4); Platelet Count 132 thou/uL (130-400); RBC Distribution Width 13.6 % (11.5-14.5); Red Blood Cell (RBC) Count 3.77 mill/uL (4.20-5.40); White Blood Cell (WBC) Count 9.4 thou/uL (4.8-10.8)
[2017-09-27 06:28] LABS: Anion Gap 9 mmol/L (10-20); BUN (Urea Nitrogen) 26 mg/dL (7.0-18.7); Calc. Creatinine Clearance 132 mL/min (70-130); Calcium 8.5 mg/dL (7.8-10.44); Carbon Dioxide 24 mmol/L (22-29); Chloride 119 mmol/L (98-107); Estimated GFR-MDRD 73; Glucose 187 mg/dL (70-105); Sodium 149 mmol/L (136-145)
[2017-09-27 06:30] LABS: Potassium 2.8 mmol/L (3.5-5.1)
[2017-09-27] MEDS ORDERED: Potassium Phosphate 12 MMOL in Sodium Chloride 0.9% 250 ML 250 ML IV PRN (06:33)
[2017-09-27] MEDS ORDERED: Potassium Chloride 20 MEQ TAB PO PRN (06:33)
[2017-09-27] MEDS ORDERED: Potassium Phosphate 15 MMOL in Sodium Chloride 0.9% 250 ML 250 ML IV PRN (06:33)
[2017-09-27] MEDS ORDERED: Potassium Chloride 40 MEQ in Sodium Chloride 0.9% 250 ML 250 ML IVPB PRN (06:33)
[2017-09-27] MEDS ORDERED: Magnesium Oxide 400 MG TAB PO PRN ×2 (06:33)
[2017-09-27] MEDS ORDERED: Potassium Phosphate 9 MMOL in Sodium Chloride 0.9% 100 ML IVPB PRN (06:33)
[2017-09-27] MEDS ORDERED: Magnesium 2 GM/NS 0.9% 100 ML 2 GM in Premix Bag 1 BAG IVPB PRN (06:33)
[2017-09-27] MEDS ORDERED: Potassium Chloride 40 MEQ in Premix Bag 1 BAG IVPB PRN (06:33)
[2017-09-27] MEDS ORDERED: CCU ELECTROLYTE REPLACEMENT PROTOCOL FS PRN (06:33)
--- NOTE | 2017-09-27 06:38 | PDOC.FM ---
- Subjective Subjective: CC: feels better HPI: Pt seen at bedside in NAD. KELSEY overnight. - Objective MAR Reviewed: Yes Vital Signs & Weight: Vital Signs (12 hours) Temp Pulse Resp BP Pulse Ox 09/27/17 04:20 97.7 F 97 17 115/56 L 98 09/27/17 00:12 97.1 F L 102 H 18 119/53 L 99 09/26/17 20:00 97.4 F L 105 H 17 99 09/26/17 19:27 97.4 F L 105 H 17 137/80 100 Weight Weight 91.711 kg I&O: 09/25/17 09/26/17 09/27/17 06:59 06:59 06:59 Intake Total 1847.4 1752 Output Total 400 500 Balance 1447.4 1252 Result Diagrams: 09/27/17 05:32 09/27/17 05:32 <Jagjit Hernandez M - Last Filed: 09/27/17 07:54> - Objective Vital Signs & Weight: Vital Signs (12 hours) Temp Pulse Resp BP Pulse Ox 09/27/17 11:00 97.8 F 96 16 138/74 99 09/27/17 08:00 98.1 F 94 16 09/27/17 07:40 98.1 F 94 16 94/53 L 99 09/27/17 04:20 97.7 F 97 17 115/56 L 98 09/27/17 00:12 97.1 F L 102 H 18 119/53 L 99 Weight Weight 93.349 kg I&O: 09/26/17 09/27/17 09/28/17 06:59 06:59 07:59 Intake Total 1847.4 3352 Output Total 400 901 Balance 1447.4 2451 Result Diagrams: 09/27/17 05:32 09/27/17 05:32 <Sammy Huang - Last Filed: 09/27/17 11:48> Phys Exam - Physical Examination Constitutional: NAD HEENT: sclera anicteric right eye lateral deviation Respiratory: no wheezing, clear to auscultation bilateral Cardiovascular: RRR, no significant murmur Gastrointestinal: soft, non-tender Musculoskeletal: no edema Neurological: moves all 4 limbs residual LUE&LLE weakness with left hand contracture Psychiatric: normal affect, A&O x 3 Skin: no rash, cap refill <2 seconds <Jagjit Hernandez - Last Filed: 09/27/17 07:54> Dx/Plan (1) Hyperosmolar non-ketotic state in patient with type 2 diabetes mellitus Code(s): E11.01 - TYPE 2 DIABETES MELLITUS WITH HYPEROSMOLARITY WITH COMA Status: Acute Plan: -pt presented with HHS and no evidence of DKA, evidenced by normal bicarbonate level and normal pH on VBG -pt has responded well to insulin and likely had component of medication noncompliance -currently increased basal insulin to NPH 35u BID -will follow SSI requirements today and titrate as necessary (2) Hypokalemia Code(s): E87.6 - HYPOKALEMIA Status: Acute Plan: -likely secondary to insulin and HHS protocol -repelete and continue to monitor on BMP recheck this afternoon (3) Hypernatremia Code(s): E87.0 - HYPEROSMOLALITY AND HYPERNATREMIA Status: Acute Plan: -pt currently on 1NS @ 75 with free water PO as well -sodium has responded well to free water repletion -nephrology on board, recommendations greatly appreciated (4) Hypertension Code(s): I10 - ESSENTIAL (PRIMARY) HYPERTENSION Status: Chronic QualifierTitle: Hypertension type: essential hypertension Qualified Code( s): I10 - Essential (primary) hypertension Plan: -at goal, continue to monitor (5) History of CVA (cerebrovascular accident) Code(s): Z86.73 - PRSNL HX OF TIA (TIA), AND CEREB INFRC W/O RESID DEFICITS Status: Chronic (6) REVENUE TAX SPECIALIST (ventriculoperitoneal) shunt status Status: Chronic - Plan Plan: disposition: Pt improving and doing well. Specialist recommendations greatly appreciated. Will recheck BMP for hypokalemia after repletion. Patient can likely be transferred out of IMCU to medical floor with no CV instability noted on telemetry. Continue to monitor closely and anticipate discharge in next 1-2 days with better control of glucose. <Jagjit Hernandez - Last Filed: 09/27/17 07:54> Attending Addendum - Attending Addendum Date/Time: 09/27/17 8203 I personally evaluated the patient and discussed the management with Dr. Hernandez. I agree with the History, Examination, Assessment and Plan documented above with any addition or exceptions noted below. <Sammy Huang - Last Filed: 09/27/17 11:48>
[2017-09-27] MEDS ORDERED: CCU Electrolyte Replacement 1 EACH FS SCH (06:45)
--- NOTE | 2017-09-27 07:40 | PRG ---
DATE OF SERVICE: 09/27/2017 Ms. Steven is a 27-year-old female, who I saw in her room this morning in the [facility]. She continues to have a mild headache. There have been no acute events overnight. Her vital signs have been stable and she has been afebrile. This morning, her labs show her sodium has decreased from 153-149, chlori de is 119, potassium 2.8. Family Medicine is working on treating UTI and treating DKA. Ms. Steven h as had a shunt placed by Dr. Blanca in July of this year, which is a revision. Likely, if the DKA is corrected, the shunt will improve in function. We will continue to leave the shunt at 0.5, and w e can get repeat CT scan of the brain in a couple weeks. On exam this morning, she is able to get up out of bed and use the bedside commode. She is able to follow my commands with GCS of 15. If there are any further questions, please feel free to contact Neurosurgery.
[2017-09-27] MEDS: metFORMIN 500 MG TAB PO SCH ×2 (08:39→16:55)
[2017-09-27] MEDS: NPH, Human Insulin Isophane 300 UNIT/3 ML VIAL SC SCH ×2 (08:40→21:50)
--- NOTE | 2017-09-27 09:26 | PRG ---
DATE OF SERVICE: 09/27/2017 SUBJECTIVE: I saw Ms. Steven in the IMCU this morning. She tells me she is feeling well this mornin g. Her blood glucose was significantly elevated overnight, but she tells me it is under better contr ol this morning. She has no headache whatsoever. She has no photophobia, no phonophobia. She has n o stiff neck. I cannot appreciate any new neurological deficit. In fact, I think her exam is improved since her ad mission. I reviewed CT imaging of the brain, which looks significantly better after the shunt pressure was tur [place] down, ventricular system decompressed a bit. It still even at its worst during this hospital adm ission, it was better than it was before the prior shunt malfunction. The difference there is marked . In my opinion, I believe Ms. Steven's recent decline is related to her shunt. Our Neurosurgery Service will be continued to be available for questions in her care during her hospi talization and afterwards. Dr. Blanca is going to follow her up in clinic. Please call us back if o ur input is needed before discharge.
--- NOTE | 2017-09-27 11:18 | PRG ---
DATE OF SERVICE: 09/27/2017 SUBJECTIVE: Patient was seen and examined at bedside and overnight events noted. Patient denies any shortness of breath or chest pain or palpitation. No history of nausea or vomiting or diarrhea or f ever or chills or cramps. OBJECTIVE: GENERAL: Obese female in no apparent distress. VITAL SIGNS: Temperature 98.1, pulse 94, respiratory rate 18, blood pressure 94/53. HEENT: Atraumatic, normocephalic. Oral mucosa is moist. NECK: Supple. CARDIOVASCULAR: S1, S2 heard. Rate and rhythm regular. RESPIRATORY: Clear to auscultation. GASTROINTESTINAL: Abdomen is soft. MUSCULOSKELETAL: No tenderness. No edema. DERMATOLOGIC: No skin rash. NEUROLOGIC: Alert and awake and oriented x3. No focal neurologic deficits. Moving all the extremiti es. PSYCHIATRIC: Mood and affect normal. LABORATORY DATA: Sodium is 149, potassium is 2.8, BUN is 26, and creatinine is 0.9. ASSESSMENT AND PLAN: 1. Hyponatremia. Sodium level is getting better. Continue on free water. 2. Hyperchloremia, better. 3. Hypokalemia. 4. Acidosis. 5. 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 6. Edema. 7. Hypertension, stable. 8. Obesity. The patient is feeling better. Sodium level is getting better. Continue free water as tolerated.
[2017-09-27 13:56] LABS: Anion Gap 13 mmol/L (10-20); BUN (Urea Nitrogen) 21 mg/dL (7.0-18.7); Calc. Creatinine Clearance 136 mL/min (70-130); Carbon Dioxide 22 mmol/L (22-29); Chloride 118 mmol/L (98-107); Estimated GFR-MDRD 74; Glucose 275 mg/dL (70-105); Potassium 3.6 mmol/L (3.5-5.1); Sodium 149 mmol/L (136-145)
--- NOTE | 2017-09-27 14:55 | PRG ---
DATE OF SERVICE: 09/27/2017 SUBJECTIVE: Jennifer Steven has no complaints. OBJECTIVE: VITAL SIGNS: She is afebrile, heart rate 96, respiratory rate 16, oximetry is 99 on room air, blood pressure 138/74. LUNGS: Clear. HEART: Regular rhythm. ABDOMEN: Soft. IMPRESSION: 1. Diabetes with hyperosmolar state secondary to his severe dehydration. 2. Hypertension. 3. Lipid disorder. 4. Obesity. 5. History of cerebrovascular accident. 6. History of ruptured aneurysm. 7. History of shunt revision and multiple shunts in the past. 8. History of excision of brain tumor in 2008. 9. Status post cholecystectomy. PLAN: Continue supportive care. She is completely medically stable at this time. Lab work was reviewed. Her creatinine is probably close to her baseline 0.9. She is still mildly hy perchloremic with a chloride of 118. She will continue with IV fluids.
[2017-09-28 05:03] LABS: #Eosinphils 0.1 thou/uL (0.0-0.7); #Lymphocytes 2.7 thou/uL (1.20-3.40); #Monocytes 0.5 thou/uL (0.11-0.59); #Neutrophils 4.3 thou/uL (1.40-6.50); %Basophils 0.1 % (0.0-1.0); %Eosinophils 1.6 % (0.0-10.0); %Lymphocytes 35.5 % (21.0-51.0); %Monocytes 6.1 % (0.0-10.0); %Neutrophils 56.7 % (42.0-75.0); Hemoglobin 9.9 g/dL (12.0-16.0); Mean Corpuscular HGB CONC 32.5 g/dL (32.0-36.0); Mean Corpuscular Hemoglobin 27.3 pg (27.0-31.0); Mean Corpuscular Volume 84.2 fl (81.0-99.0); Mean Platelet Volume 10.7 fL (7.4-10.4); Platelet Count 121 thou/uL (130-400); RBC Distribution Width 13.2 % (11.5-14.5); Red Blood Cell (RBC) Count 3.63 mill/uL (4.20-5.40); White Blood Cell (WBC) Count 7.6 thou/uL (4.8-10.8)
[2017-09-28 05:15] LABS: Anion Gap 8 mmol/L (10-20); BUN (Urea Nitrogen) 17 mg/dL (7.0-18.7); Calc. Creatinine Clearance 157 mL/min (70-130); Calcium 8.6 mg/dL (7.8-10.44); Carbon Dioxide 25 mmol/L (22-29); Chloride 119 mmol/L (98-107); Estimated GFR-MDRD 87; Glucose 191 mg/dL (70-105); Potassium 3.3 mmol/L (3.5-5.1); Sodium 149 mmol/L (136-145)
--- NOTE | 2017-09-28 06:42 | PDOC.FM ---
- Subjective Subjective: CC: feels better HPI: Pt seen at bedside in NAD. KELSEY overnight. No recurrence of BARON. Has been tolerating PO well. - Objective MAR Reviewed: Yes Vital Signs & Weight: Vital Signs (12 hours) Temp Pulse Resp BP Pulse Ox 09/28/17 04:00 92 20 111/74 93 L 09/28/17 00:00 98.3 F 89 20 107/74 96 09/27/17 20:30 98.3 F 92 20 09/27/17 20:00 98.3 F 89 20 126/75 98 Weight Weight 92.4 kg I&O: 09/26/17 09/27/17 09/28/17 06:59 06:59 07:59 Intake Total 1847.4 3352 650 Output Total 400 901 400 Balance 1447.4 2451 250 Result Diagrams: 09/28/17 04:36 09/28/17 04:36 <Jagjit Hernandez - Last Filed: 09/28/17 07:30> - Objective Vital Signs & Weight: Vital Signs (12 hours) Temp Pulse Resp BP BP Pulse Ox 09/28/17 08:00 98.7 F 98 16 09/28/17 07:30 98.7 F 98 16 126/71 90 L 09/28/17 04:00 92 20 111/74 93 L 09/28/17 00:00 98.3 F 89 20 107/74 96 Weight Weight 92.4 kg I&O: 09/27/17 09/28/17 09/29/17 05:59 06:59 06:59 Intake Total Output Total Balance Result Diagrams: 09/28/17 04:36 09/28/17 04:36 <Sammy Huang - Last Filed: 09/28/17 10:19> Phys Exam - Physical Examination Constitutional: NAD HEENT: sclera anicteric right eye lateral deviation Respiratory: no wheezing, clear to auscultation bilateral Cardiovascular: RRR, no significant murmur Gastrointestinal: soft, non-tender Musculoskeletal: no edema Neurological: moves all 4 limbs residual LUE & LLE weakness with left hand contracture Psychiatric: normal affect, A&O x 3 Skin: cap refill <2 seconds <Jagjit Hernandez - Last Filed: 09/28/17 07:30> Dx/Plan (1) Hyperosmolar non-ketotic state in patient with type 2 diabetes mellitus Code(s): E11.01 - TYPE 2 DIABETES MELLITUS WITH HYPEROSMOLARITY WITH COMA Status: Acute Plan: -pt presented with HHS and no evidence of DKA, evidenced by normal bicarbonate level and normal pH on VBG -pt has responded well to insulin and likely had component of medication noncompliance -currently increased basal insulin to NPH 40u BID -will follow SSI requirements today and titrate as necessary (2) Hypokalemia Code(s): E87.6 - HYPOKALEMIA Status: Acute Plan: -likely secondary to insulin and HHS protocol -resolving after oral repletion (3) Hypernatremia Code(s): E87.0 - HYPEROSMOLALITY AND HYPERNATREMIA Status: Acute Plan: -secondary to poor oral intake and osmolar diuresis due to hyperglycemia, now resolving -sodium has responded well to free water repletion -nephrology on board, recommendations greatly appreciated (4) Hypertension Code(s): I10 - ESSENTIAL (PRIMARY) HYPERTENSION Status: Chronic QualifierTitle: Hypertension type: essential hypertension Qualified Code( s): I10 - Essential (primary) hypertension Plan: -at goal, continue to monitor (5) History of CVA (cerebrovascular accident) Code(s): Z86.73 - PRSNL HX OF TIA (TIA), AND CEREB INFRC W/O RESID DEFICITS Status: Chronic (6) PULVERIZING AND SIFTING OPERATOR (ventriculoperitoneal) shunt status Status: Chronic - Plan Plan: disposition: Pt stable and continues to do well. Glucose and sodium have responded to medical therapy. Specialist recommendations greatly appreciated. Likely discharge today with emphasis on medication compliance, oral intake, and close outpatient follow up. <Jagjit Hernandez - Last Filed: 09/28/17 07:30> Attending Addendum - Attending Addendum Date/Time: 09/28/17 1018 I personally evaluated the patient and discussed the management with Dr. Hernandez. I agree with the History, Examination, Assessment and Plan documented above with any addition or exceptions noted below. Stable for Discharge. <Sammy Huang - Last Filed: 09/28/17 10:19>
[2017-09-28] MEDS ORDERED: Fluconazole 100 MG TAB PO SCH (06:45)
[2017-09-28] MEDS ORDERED: Potassium Chloride 20 MEQ TAB PO SCH (06:45)
[2017-09-28 07:31] VITALS: BP 126/71; TEMP 98.7
[2017-09-28] MEDS: metFORMIN 500 MG TAB PO SCH (07:58)
[2017-09-28] MEDS ORDERED: NPH, Human Insulin Isophane 300 UNIT/3 ML VIAL SC SCH (09:00)
[2017-09-28] MEDS: HumaLOG 300 UNITS/3 ML VIAL SC PRN (11:37)
--- NOTE | 2017-09-28 11:45 | PRG ---
DATE OF SERVICE: 09/28/2017 SUBJECTIVE: Patient was seen and examined at bedside and overnight events noted. Patient denies any shortness of breath or chest pain or palpitation. No history of nausea or vomiting or diarrhea or f ever or chills or cramps. OBJECTIVE: GENERAL: This is an obese female in no apparent distress. VITAL SIGNS: Temperature 98.7, pulse 90, respiratory rate 16, blood pressure 126/71. HEENT: Atraumatic, normocephalic. Oral mucosa is moist. NECK: Supple. CARDIOVASCULAR: S1, S2 heard. Rate and rhythm regular. RESPIRATORY: Clear to auscultation. GASTROINTESTINAL: Abdomen is soft. MUSCULOSKELETAL: No tenderness. No edema. DERMATOLOGIC: No skin rash. NEUROLOGIC: Alert and awake and oriented x3. No focal neurologic deficits. Moving all the extremiti es. PSYCHIATRIC: Mood and affect normal. LABORATORY DATA: Potassium 3.3, BUN 70, creatinine 0.7. ASSESSMENT AND PLAN: 1. Hypernatremia. Continue free water. 2. Hyperchloremia. 3. Hypokalemia. 4. Acidosis. 5. Edema. 6. Hypertension. 7. Continue free water and monitor sodium.
--- NOTE | 2017-09-28 14:28 | DIS-2 ---
DATE OF ADMISSION: 09/25/2017 DATE OF DISCHARGE: 09/28/2017 RESIDENT: Jagjit Hernandez M.D. ADMITTING ATTENDING: Dr. Kaylyn Martinez. DISCHARGE ATTENDING: Dr. Sammy Huang. CONSULTATIONS: 1. Nephrology, Dr. Tutu Alberts. 2. Neurosurgery, Dr. Blanca. 3. Pulmonology, Dr. Diaz Ramos. PROCEDURES: 1. CT brain performed on 10/05/2017 showed developing distention of the left lateral ventricle, domo cating possible left HEMMING AND TACKING MACHINE OPERATOR shunt malfunction. 2. Shuntogram performed on 10/05/2017 showed no evidence of HEMMING AND TACKING MACHINE OPERATOR shunt discontinuity. 3. Repeat CT brain performed on 09/26/2017 showed no significant interval change. PRIMARY DIAGNOSES: 1. Hyperosmolar hyperglycemic state secondary to medication noncompliance. 2. Severe hypernatremia secondary to primary hypodipsia and osmotic diuresis secondary to #1. 3. Acute kidney injury, resolved. SECONDARY DIAGNOSES: 1. Insulin-dependent diabetes mellitus type 2. 2. Hypertension. 3. Hyperlipidemia. 4. Morbid obesity. 5. History of ruptured cerebral aneurysm, status post ventriculoperitoneal shunt placement. 6. History of hypothalamic infarct. 7. Vitamin D deficiency. DISCHARGE MEDICATIONS: 1. Amlodipine 5 mg p.o. daily. 2. Metformin 500 mg p.o. b.i.d. 3. NPH insulin 40 units subcutaneously b.i.d. 4. Atorvastatin 40 mg p.o. at bedtime. 5. Lisinopril 2.5 mg p.o. daily. 6. Vitamin D3 5000 International Units p.o. daily. DISCONTINUED MEDICATIONS: NPH insulin 20 units subcutaneously b.i.d. HISTORY OF PRESENT ILLNESS AND HOSPITAL COURSE: The patient is a very pleasant 27-year-old female who initially presented with complaints of hyperglycemia at home. The patient is noted to hav e an extensive neurologic history including a hypothalamic infarct, which took away the patient's [facility]. The patient was noted to have poor oral intake and an increased amount of polyuria over the few days prior to presentation and her laboratory workup revealed HHS and a severe hypernatremia. Regarding the patient's hyperosmolar hyperglycemic state, the patient was initially started on an ins ulin drip with close monitoring of her blood glucose and metabolic panels. The patient responded ext remely well to intravenous insulin and was transitioned to subcutaneous insulin with a diet within ab out 12 hours. Due to her poor free water intake and her increased amount of osmotic diuresis, the patient did prese nt with a severe hypernatremia that was corrected at 172 on admission. The patient's sodium at the t richard of discharge was 149. Nephrology was consulted to help evaluate the patient. Initially, the o [facility] was to place the patient on D5 water; however, with her severe hyperglycemia, this was not possi ble. The patient was therefore initially placed on 1/4 normal saline with encouraged free water oral ly. As stated above, the patient had frequent metabolic panel checks and her sodium slowly trended t o a normal level with correction of her intake and her hyperglycemia. Regarding the patient's neurologic status, the patient at no point displayed any neurologic symptoms. She did complain of a headache upon presentation and with CT concern for developing distention of t he left lateral ventricle, Neurosurgery was consulted. Neurosurgery evaluated the patient multiple t imes and revised her HEMMING AND TACKING MACHINE OPERATOR shunt, changing the settings and stating that there was no need for any type of interventional treatment. The patient improved throughout her hospital stay and was deemed stable for discharge. The patient's hospital course otherwise uncomplicated. DISPOSITION: Stable. DISCHARGE INSTRUCTIONS: 1. Location: Home. 2. Diet: Diabetic diet. 3. Activity: As tolerated. 4. Followup: The patient was instructed to follow up with her primary care physician, Dr. Paulina armijo within 2 weeks to review hospital stay and chronic medical conditions.
== END 2017-09-28 12:21 | disposition home or self-care (01) | DRG 638 ==
LOC: ERS 12:04 → IMCU/EMU 14:56 → T4-A 09-27 17:34
PROVIDERS: ADMIT Family Medicine; ATTEND Family Medicine
DX: E11.00 Type 2 diabetes mellitus with hyperosmolarity without nonketotic hyperglycemic-hyperosmolar coma (NKHHC) (principal); E87.0 Hyperosmolality and hypernatremia; G91.9 Hydrocephalus, unspecified; N17.9 Acute kidney failure, unspecified; E11.22 Type 2 diabetes mellitus with diabetic chronic kidney disease; N18.3 Chronic kidney disease, stage 3 (moderate); E87.2 Acidosis; N39.0 Urinary tract infection, site not specified; E86.0 Dehydration; E66.01 Morbid (severe) obesity due to excess calories; E87.6 Hypokalemia; E55.9 Vitamin D deficiency, unspecified; I12.9 Hypertensive chronic kidney disease with stage 1 through stage 4 chronic kidney disease, or unspecified chronic kidney disease; I69.398 Other sequelae of cerebral infarction; Z68.34 Body mass index [BMI] 34.0-34.9, adult; Z91.14 Patient's other noncompliance with medication regimen; Z79.4 Long term (current) use of insulin; Z79.899 Other long term (current) drug therapy; Z98.2 Presence of cerebrospinal fluid drainage device
CPT/HCPCS: 36415; 36416; 70450; 75809; 80048; 80053; 81003; 81015; 81025; 82330; 82570; 82803; 83605; 83930; 83935; 84300; 85025; 87086; 96374; A4216; A4217; J1815; J7050

== ENCOUNTER 2017-10-10 09:31 | Outpatient (CLI) | payer MEDICARE ==
--- NOTE | 2017-10-10 10:46 | CT ---
CT BRAIN NONCONTRAST: DATE: 10/10/2017 TIME: 9:49 a.m. HISTORY: A 27-year-old female with a given diagnosis of hydrocephalus (G91.9). COMPARISON: 09/26/2017 FINDINGS: There has been no significant interval change overall. IMPRESSION: 1. No interval change since 09/26/2017. 2. Cluster of several aneurysm clips, slightly to the right of midline, intracranially. 3. Two ventriculoperitoneal shunt catheters. 4. Extensive, large region of right frontal lobe encephalomalacia and gliosis, and collapse of the b aline of the right lateral ventricle. 5. Moderate dilation of the frontal horn and body of the left lateral ventricle. LAURA Martin POS: LYLE
== END 2017-10-10 09:32 | disposition home or self-care (01) ==
LOC: TBSIIMAG 09:31
PROVIDERS: ATTEND Surgery
DX: G91.9 Hydrocephalus, unspecified (principal); I67.1 Cerebral aneurysm, nonruptured; G93.89 Other specified disorders of brain; Z98.2 Presence of cerebrospinal fluid drainage device
CPT/HCPCS: 70450

== ENCOUNTER 2020-03-24 08:58 | Emergency (ER) | payer MEDICARE ==
[2020-03-24 09:48] LABS: Bilirubin Negative (Negative); Blood, Urine Negative (Negative); Glucose, Urine (Dipstick) Negative (Negative); Ketone, Urine Negative (Negative); Leukocyte Moderate (Negative); Nitrite Negative (Negative); Protein, Urine (Dipstick) Negative (Neg-Trace); Specific Gravity, Urine 1.025 (1.005-1.030); Urobilinogen 0.2 mg/dL (Less than 2)
[2020-03-24 10:03] LABS: Clarity Hazy (Clear); Pregnancy Test - Urine (BHCG) Negative (Negative); Pregu Control Background? CLEAR/WHITE (CLR/WHITE); Pregu Control Bar Appear? YES (CONTROL BAR); Specific Gravity 1.025 (1.002-1.036)
[2020-03-24 10:04] LABS: Bacteria/HPF 2+ HPF (None Seen); RBC/HPF 0-3 HPF (0-3)
[2020-03-24 10:05] LABS: Mucous/LPF 1+ LPF (<2+)
[2020-03-24 10:06] LABS: #Eosinphils 0.1 thou/uL (0.0-0.7); #Lymphocytes 2.3 thou/uL (1.20-3.40); #Monocytes 0.8 thou/uL (0.11-0.59); #Neutrophils 6.3 thou/uL (1.40-6.50); %Basophils 0.2 % (0.0-1.0); %Eosinophils 1.4 % (0.0-10.0); %Lymphocytes 23.7 % (21.0-51.0); %Monocytes 7.9 % (0.0-10.0); %Neutrophils 66.8 % (42.0-75.0); Hemoglobin 10.1 g/dL (12.0-16.0); Mean Corpuscular HGB CONC 30.6 g/dL (32.0-36.0); Mean Corpuscular Hemoglobin 22.7 pg (27.0-31.0); Mean Corpuscular Volume 74.1 fL (78.0-98.0); Mean Platelet Volume 9.4 fL (7.4-10.4); Platelet Count 301 thou/uL (130-400); RBC Distribution Width 15.3 % (11.5-14.5); Red Blood Cell (RBC) Count 4.45 mill/uL (4.20-5.40); White Blood Cell (WBC) Count 9.5 thou/uL (4.8-10.8)
[2020-03-24 10:11] LABS: ALT (SGPT) 9 U/L (8-55); AST (SGOT) 10 U/L (5-34); Albumin 3.8 g/dL (3.5-5.0); Alkaline Phosphatase 106 U/L (40-110); Anion Gap 13 mmol/L (10-20); BUN (Urea Nitrogen) 13 mg/dL (7.0-18.7); Bilirubin, Total 0.5 mg/dL (0.2-1.2); Calc. Creatinine Clearance 0 mL/min (70-130); Carbon Dioxide 24 mmol/L (22-29); Chloride 106 mmol/L (98-107); Estimated GFR-MDRD Greater than 90; Globulin 3.1 g/dL (2.4-3.5); Glucose 115 mg/dL (70-105); Lipase 12 U/L (8-78); Potassium 4.1 mmol/L (3.5-5.1); Protein, Total 6.9 g/dL (6.0-8.3); Sodium 139 mmol/L (136-145)
[2020-03-24 10:40] LABS: Hypochromia SLIGHT = 6-15 cells (100X) (0-5/hpf); MDiff Complete? YES; Microcytosis SLIGHT = 6-15 cells (100X) (0-5/hpf); Platelet Morphology Comment Appears Adequate; Polychromasia SLIGHT = 2-3 cells (100X) (0-2/hpf)
[2020-03-24] MEDS ORDERED: Morphine 4 MG/ML VIAL ONE (11:07)
[2020-03-24] MEDS ORDERED: Ondansetron PF 4 MG/2 ML Vial ONE (11:07)
--- NOTE | 2020-03-24 11:15 | ULT ---
RIGHT UPPER QUADRANT ULTRASOUND: HISTORY: Right upper quadrant pain. FINDINGS: The liver demonstrates increased echogenicity consistent with fatty infiltration. The patient is pos t cholecystectomy. The common duct measures 6 mm in diameter. There is a 4 mm echogenic focus, like ly calculus, in the right kidney without hydronephrosis. The pancreas is suboptimally visualized. T he visualized portions of the pancreas appear echogenic. No free fluid is seen in the Morison's pouc h. IMPRESSION: 1. Fatty liver. 2. Status post cholecystectomy. 3. Probable nonobstructing right renal calculus. 4. Visualized portions of the pancreas appear echogenic. Further evaluation with contrast-enhanced CT scan would be helpful. POS: STAN
[2020-03-24] MEDS ORDERED: Iopamidol-370 76% 500 ML 1 ML ONE (11:28)
--- NOTE | 2020-03-24 11:34 | CT ---
EXAM: CT ABDOMEN AND PELVIS HISTORY: Right lower quadrant pain, radiating to her back. COMPARISON: 05/06/2013 Procedure: Multiple contiguous axial images were obtained and a CT of the abdomen and pelvis with IV contrast. C oronal reformats were performed. FINDINGS: Lower Chest: Dependent atelectatic changes Vessels: Normal caliber aorta. No periaortic fat stranding. Heart: Normal heart size. No significant pericardial fluid. Abdomen: Portal vein:Patent Gallbladder: Surgically absent Liver: within normal limits. Pancreas: within normal limits. Spleen: within normal limits. Adrenals: within normal limits. Kidneys: Symmetric enhancement. No obstructive uropathy. Peritoneum: No ascites or free air, no fluid collection. Bowel: Limited evaluation due to the lack of oral contrast administration. No evidence of bowel obstr uction. Ileocecal junction is unremarkable. Normal caliber retrocecal appendix. Scattered fecal material in a nondistended, nondilated colon. Mesentery and Retroperitoneum: There are scattered mildly enlarged mesenteric lymph nodes. Representa tive lymph node measures 1.2 x 0.4 cm Abdominal Wall: within normal limits. Pelvis: Reproductive Organs: Possible fluid in the endometrium. Centrally hypodense, peripherally enhancing l esion in the left adnexa likely representing a collapsing left ovarian cyst. Nabothian cyst in the cervix are suspected. Pelvis: There is complex fluid in the pelvis with attenuation coefficient of 16 Hounsfield units. Cor relate for previously ruptured cyst cyst. Bladder: within normal limits. Incidentals: Partially visualized ventriculoperitoneal shunt catheter. IVC filter is noted. Bones: within normal limits. IMPRESSION: 1. Normal caliber retrocecal appendix. 2. Nonspecific mildly prominent mesenteric lymph nodes, unchanged. 3. Resolving left ovarian cyst. Follow-up ultrasound in 6 weeks.
[2020-03-24] MEDS ORDERED: Metoclopramide HCl 10 MG/2 ML VIAL ONE (12:09)
== END 2020-03-24 12:50 | disposition home or self-care (01) ==
LOC: ERS 08:58
DX: R10.31 Right lower quadrant pain (principal); R10.11 Right upper quadrant pain; R10.13 Epigastric pain; E11.9 Type 2 diabetes mellitus without complications; I10 Essential (primary) hypertension; Z79.4 Long term (current) use of insulin
CPT/HCPCS: 74177; 76705; 80053; 81003; 81015; 81025; 82010; 83690; 85025; 87086; 96374; 96375; 99406; J2270; J2405; J2765

== ENCOUNTER 2020-07-03 18:05 | Emergency (ER) | payer MEDICARE ==
--- NOTE | 2020-07-03 18:36 | CT ---
Exam: Head CT without contrast HISTORY: Headache. Symptoms started a week ago. COMPARISON: 10/11/2019 FINDINGS: Hemorrhage: No intraparenchymal hemorrhage or extra-axial hematoma. Brain parenchyma: Chronic changes involving the right cerebrum. With the exception of the right front al temporal region, cortical perdue-white white matter differentiation is preserved. Ventricular system: Stable configuration the ventricular system. Stable coil mass is identified. Ther e is associated beam attenuation artifact. Calvarium: Stable postsurgical changes involving the right calvarium. Stable ena hole defects in the left calvarium. Sinuses and mastoid air cells: Left maxillary sinus disease. IMPRESSION: 1. No significant interval change. 2. Stable aneurysm clips. 3. Stable ventricle peritoneal shunt catheters. Stable configuration of the ventricular system. 4. Stable encephalomalacia and gliosis of the right cerebrum.
--- NOTE | 2020-07-03 19:16 | RAD ---
SKULL TWO VIEWS CERVICAL SPINE ONE VIEW CHEST ONE VIEW ABDOMEN ONE VIEW PELVIS ONE VIEW: History: Headache, Shuntogram. Comparison: 09/26/2019 FINDINGS: AP and lateral view of the calvarium demonstrate multiple aneurysm clips. There are 2 separate endotr acheal peritoneal shunt catheters. Right-sided catheter appears to be intact and terminates in the midline of the pelvis. Left-sided catheter does appear to be intact, terminating in the epigastric re gion. There is an additional catheter projecting over the right hemithorax and right upper quadrant of the abdomen. Note is made of an IVC filter. Stable sclerosis of the calvarium. IMPRESSION: No radiographic evidence of shunt disruption. Transcribed Date/Time: 07/03/2020 7:42 PM
== END 2020-07-03 20:37 | disposition home or self-care (01) ==
LOC: ERS 18:05
DX: R51.9 Headache, unspecified (principal); E11.9 Type 2 diabetes mellitus without complications; E78.5 Hyperlipidemia, unspecified; E78.00 Pure hypercholesterolemia, unspecified; I10 Essential (primary) hypertension; Z79.4 Long term (current) use of insulin; Z79.899 Other long term (current) drug therapy
CPT/HCPCS: 70450; 75809

== ENCOUNTER 2023-08-12 12:53 | Inpatient (IN) | payer MEDICARE, OTHER ==
[2023-08-12] MEDS ORDERED: Acetaminophen 500 MG TAB ONE (13:25)
[2023-08-12 13:49] LABS: Bacteria/HPF None Seen HPF (None Seen); Bilirubin Negative (Negative); Blood, Urine Negative (Negative); CAUTI Indications for Culture Alt mental st,lethar; Clarity Clear (Clear); Glucose, Urine (Dipstick) Greater than 1000 mg/dL (Negative); Ketone, Urine 40 mg/dL (Negative); Leukocyte Negative Leu/uL (Negative); Nitrite Negative (Negative); Protein, Urine (Dipstick) 100 mg/dL (Neg-Trace); RBC/HPF 0-3 HPF (0-3); Squamous Epithelial 0-3 HPF (0-3); Urobilinogen Normal mg/dL (Less than 2); WBC/HPF 0-3 HPF (0-3); pH, Urine 5.5 (5.0-9.0)
[2023-08-12 13:50] LABS: Specific Gravity, Urine 1.047 (1.002-1.036)
[2023-08-12 13:52] LABS: Urine Culture Reflex No No
[2023-08-12 13:54] LABS: SARS-CoV-2 NAA Rapid Test Not Detected (NotDetected)
[2023-08-12 13:55] LABS: Amphetamine Not Detected (NotDetected); Barbiturates Screen Not Detected (NotDetected); Benzodiazepine Screen Not Detected (NotDetected); Cocaine Metabolite Screen Not Detected (NotDetected); Methadone Not Detected (NotDetected); Methamphetamine Not Detected (NotDetected); Opiate Screen Not Detected (NotDetected); Oxycodone Screen Not Detected (NotDetected); Phencyclidine (PCP) Not Detected (NotDetected); THC/Cannabinoid Screen Not Detected (NotDetected); Tricyclic Screen Not Detected (NotDetected)
[2023-08-12 14:10] LABS: #Neutrophils 9.3 thou/uL (1.40-6.50); %Basophils 0.3 % (0.0-1.0); %Eosinophils 0.3 % (0.0-10.0); %Monocytes 8.3 % (0.0-10.0); %Neutrophils 77.8 % (42.0-75.0); Hematocrit 44.2 % (36.0-47.0); Hemoglobin 11.7 g/dL (12.0-16.0); Mean Corpuscular HGB CONC 26.5 g/dL (32.0-36.0); Mean Corpuscular Hemoglobin 20.1 pg (27.0-31.0); Mean Corpuscular Volume 75.9 fl (78.0-98.0); Platelet Count 295 10x3/uL (130-400); RBC Distribution Width 20.5 % (11.5-14.5); Red Blood Cell (RBC) Count 5.82 mill/uL (4.20-5.40); White Blood Cell (WBC) Count 11.9 10x3/uL (4.8-10.8)
[2023-08-12] MEDS ORDERED: Sodium Chloride 0.9% 100 ML ONE (14:22)
[2023-08-12] MEDS ORDERED: cefTRIAXone (ROCEPHIN) 2 GM VIAL ONE (14:22)
[2023-08-12 14:23] LABS: BHCG - Serum Negative (NEGATIVE); Pregs Control Background? CLEAR/WHITE (CLR/WHITE); Pregs Control Bar Appear? YES (CONTROL BAR)
[2023-08-12 14:24] LABS: INR-International Normal Ratio 1.3; Prothrombin Time 16.2 sec (12.0-14.7)
[2023-08-12 14:29] LABS: Acetaminophen Less than 10 mcg/mL (10.0-30.0); Alcohol Less than 10.0 mg/dL (Less than 10); Lipase 50 U/L (8-78); Salicylate Less than 8.0 mg/dL (15.0-30.0)
[2023-08-12 14:33] LABS: Troponin I 0.026 ng/mL (< 0.028)
[2023-08-12 14:37] LABS: ALT (SGPT) 11 U/L (8-55); AST (SGOT) 9 U/L (5-34); Albumin 4.5 g/dL (3.5-5.0); Alkaline Phosphatase 145 U/L (40-110); BUN (Urea Nitrogen) 46 mg/dL (7.0-18.7); Bilirubin, Total 0.4 mg/dL (0.2-1.2); Calc. Creatinine Clearance 0 mL/min (70-130); Calcium 9.4 mg/dL (7.8-10.44); Critical Call Chemistry NUR.VB5@1436; Estimated GFR 38; Globulin 3.7 g/dL (2.4-3.5); Glucose 675 mg/dL (70-105); Protein, Total 8.2 g/dL (6.0-8.3)
[2023-08-12 14:46] LABS: Anisocytosis SLIGHT = 6-15 cells HPF (0-5); Burr Cells SLIGHT = 2-5 cells HPF (0-1); CellaVision Operator ID LAB.MJL; Elliptocytes SLIGHT = 2-5 cells HPF (0-1); Hypochromia SLIGHT = 6-15 cells HPF (0-5); Microcytosis SLIGHT = 6-15 cells HPF (0-5); Ovalocytes SLIGHT = 2-5 cells HPF (0-1); Platelet Adequacy Comment Platelets Normal; Poikilocytosis SLIGHT = 6-15 cells HPF (0-5); Polychromasia SLIGHT = 2-3 cells HPF (0-2)
[2023-08-12 14:50] LABS: Anion Gap 20 mmol/L (10-20); Chloride 133 mmol/L (98-107)
[2023-08-12 14:57] LABS: Potassium 3.7 mmol/L (3.5-5.1)
[2023-08-12 15:00] LABS: Carbon Dioxide 18 mmol/L (22-29)
[2023-08-12 15:01] LABS: Sodium 167 mmol/L (136-145)
[2023-08-12] MEDS ORDERED: INSULIN REGULAR IN 0.9 % NACL 100 UNITS/100 ML BAG ONE (15:35)
[2023-08-12] MEDS ORDERED: HumaLOG 300 UNITS/3 ML VIAL ONE (15:35)
[2023-08-12] MEDS ORDERED: Insulin Regular 300 UNITS/3 ML VIAL ONE (15:36)
[2023-08-12 16:14] LABS: Actual Bicarbonate (HCO3v) 18.5 mEq/L (22-28); Analyzer IN Cardio ER; Base Excess -7.5 mEq/L (-2.0 to +3.0); Calcium, Ionized (venous) 1.17 mmol/L (1.16-1.32); Chloride (VBG) 133 mmol/L (98-106); Hematocrit-VBG 38 % (36.0-47.0); Hemoglobin (Hb) 12.8 g/dL (11.7-15.5); Potassium (VBG) 3.86 mmol/L (3.70-5.30); pH (venous) 7.289 (7.32-7.43)
[2023-08-12 16:18] LABS: Sodium 175 mmol/L (133-146)
[2023-08-12] MEDS ORDERED: Dextrose 50% Abboject 50 ML SYRINGE SLOW IVP PRN ×2 (16:26)
[2023-08-12] MEDS ORDERED: Electrolyte Replacement Protocol 1 EACH IVPB SCH (16:26)
[2023-08-12] MEDS ORDERED: Sodium Chloride 0.9% 1,000 ML IV PRN ×4 (16:26)
[2023-08-12] MEDS ORDERED: D5 1/2 NS w/20 mEq KCL 1,000 ML IV PRN (16:26)
[2023-08-12] MEDS ORDERED: NS 0.9% w/ 20 MEQ KCL 1,000 ML IV PRN (16:26)
[2023-08-12] MEDS ORDERED: Dextrose 5% in Water 1,000 ML IV PRN (16:26)
[2023-08-12] MEDS ORDERED: Glucagon 1 MG/ML KIT IM PRN (16:26)
[2023-08-12] MEDS ORDERED: Dextrose 5 %-0.45 % NaCl 1,000 ML IV PRN (16:26)
[2023-08-12] MEDS ORDERED: HUMULIN R 100 UNITS in Sodium Chloride 0.9% 100 ML IVPB SCH (16:30)
[2023-08-12 17:20] LABS: Lactic Acid 2.4 mmol/L (0.5-2.2)
[2023-08-12 17:32] LABS: Anion Gap 19 mmol/L (10-20); BUN (Urea Nitrogen) 45 mg/dL (7.0-18.7); Calc. Creatinine Clearance 0 mL/min (70-130); Calcium 9.3 mg/dL (7.8-10.44); Carbon Dioxide 18 mmol/L (22-29); Chloride 134 mmol/L (98-107); Critical Call Chemistry NUR.JLE@1732; Estimated GFR 37; Glucose 614 mg/dL (70-105); Potassium 4.2 mmol/L (3.5-5.1); Sodium 167 mmol/L (136-145)
[2023-08-12] MEDS ORDERED: 1/2 NS w/Potassium 20 mEq 1,000 ML IV SCH (18:00)
[2023-08-12] MEDS ORDERED: NS 0.9% w/ 20 MEQ KCL 1,000 ML ONE ×2 (18:00→20:46)
[2023-08-12] MEDS: NS 0.9% w/ 20 MEQ KCL 1,000 ML IV PRN ×2 (18:05→20:50)
[2023-08-12] MEDS ORDERED: Vancomycin 1 GM/200 ML (FROZEN) BAG ONE (21:53)
[2023-08-12] MEDS ORDERED: Vancomycin (BATCH) 1.75 GM in Premix 1 BAG IVPB SCH (22:00)
[2023-08-12 22:04] LABS: Anion Gap 13 mmol/L (10-20); BUN (Urea Nitrogen) 46 mg/dL (7.0-18.7); Calc. Creatinine Clearance 75 mL/min (70-130); Carbon Dioxide 19 mmol/L (22-29); Chloride 144 mmol/L (98-107); Critical Call Chemistry NUR.JLE @2202; Estimated GFR 51; Glucose 203 mg/dL (70-105); Potassium 3.2 mmol/L (3.5-5.1); Sodium 173 mmol/L (136-145)
[2023-08-13] MEDS ORDERED: Vancomycin HCl 750 MG in Sodium Chloride 0.9% 250 ML 250 ML IVPB SCH (01:30)
[2023-08-13] MEDS ORDERED: Dextrose 5% in Water 1,000 ML IV SCH ×3 (03:30→15:11)
[2023-08-13 03:34] LABS: Anion Gap 16 mmol/L (10-20); BUN (Urea Nitrogen) 44 mg/dL (7.0-18.7); Calc. Creatinine Clearance 82 mL/min (70-130); Calcium 8.7 mg/dL (7.8-10.44); Carbon Dioxide 16 mmol/L (22-29); Chloride 144 mmol/L (98-107); Estimated GFR 57; Glucose 188 mg/dL (70-105); Potassium 3.8 mmol/L (3.5-5.1)
[2023-08-13 03:35] LABS: Sodium 172 mmol/L (136-145)
[2023-08-13 05:17] LABS: Manual Diff?? YES; Mean Corpuscular HGB CONC 26.3 g/dL (32.0-36.0); RBC Distribution Width 20.1 % (11.5-14.5); White Blood Cell (WBC) Count 16.2 10x3/uL (4.8-10.8)
[2023-08-13 05:22] LABS: Delete Auto Diff?? YES; Platelet Count 189 10x3/uL (130-400)
[2023-08-13 06:05] LABS: CellaVision Operator ID LAB.CLH1; Elliptocytes SLIGHT = 2-5 cells HPF (0-1); Hypochromia SLIGHT = 6-15 cells HPF (0-5); Large Platelets 6.1 % (0-5); Lymphocytes 21 % (21-51); Microcytosis SLIGHT = 6-15 cells HPF (0-5); Monocytes 5 % (0-10); Neutrophil 74 % (42-75); Platelet Adequacy Comment Platelets Normal; Total Cell Count 99
[2023-08-13 06:07] LABS: ALT (SGPT) 10 U/L (8-55); AST (SGOT) 11 U/L (5-34); Albumin 3.8 g/dL (3.5-5.0); Alkaline Phosphatase 112 U/L (40-110); Anion Gap 10 mmol/L (10-20); BUN (Urea Nitrogen) 43 mg/dL (7.0-18.7); Bilirubin, Total 0.4 mg/dL (0.2-1.2); Calc. Creatinine Clearance 89 mL/min (70-130); Calcium 8.3 mg/dL (7.8-10.44); Carbon Dioxide 19 mmol/L (22-29); Chloride 144 mmol/L (98-107); Estimated GFR 63; Glucose 201 mg/dL (70-105); Potassium 3.4 mmol/L (3.5-5.1); Protein, Total 6.8 g/dL (6.0-8.3); Sodium 170 mmol/L (136-145)
[2023-08-13] MEDS ORDERED: Potassium Bicarbonate/Cit Ac 20 MEQ TAB PO SCH (08:00)
[2023-08-13 08:41] LABS: Phosphorus 2.2 mg/dL (2.3-4.7)
[2023-08-13] MEDS ORDERED: Vancomycin 1 GM in Sodium Chloride 0.9% 250 ML 250 ML IVPB SCH (09:00)
[2023-08-13 09:06] LABS: Anion Gap 17 mmol/L (10-20); BUN (Urea Nitrogen) 42 mg/dL (7.0-18.7); Calc. Creatinine Clearance 98 mL/min (70-130); Calcium 8.3 mg/dL (7.8-10.44); Carbon Dioxide 15 mmol/L (22-29); Chloride 139 mmol/L (98-107); Estimated GFR 71; Glucose 249 mg/dL (70-105); Potassium 3.6 mmol/L (3.5-5.1); Sodium 167 mmol/L (136-145)
[2023-08-13] MEDS: Dextrose 5% in Water 1,000 ML IV SCH ×2 (10:02→12:42)
[2023-08-13] MEDS: Enoxaparin 40 MG (0.4 mL) SYRINGE SC SCH (10:03)
[2023-08-13] MEDS: Cefepime 2 GM in Sodium Chloride 0.9% 100 ML IVPB SCH ×2 (10:03→22:17)
[2023-08-13] MEDS: Pantoprazole 40 MG VIAL IVP SCH (10:03)
[2023-08-13 14:40] LABS: Anion Gap 11 mmol/L (10-20); BUN (Urea Nitrogen) 38 mg/dL (7.0-18.7); Calc. Creatinine Clearance 105 mL/min (70-130); Calcium 7.9 mg/dL (7.8-10.44); Carbon Dioxide 20 mmol/L (22-29); Chloride 135 mmol/L (98-107); Critical Call Chemistry NUR.BMD1@1440; Estimated GFR 77; Glucose 174 mg/dL (70-105); Sodium 163 mmol/L (136-145)
[2023-08-13] MEDS ORDERED: HumaLOG 300 UNITS/3 ML VIAL SC PRN ×2 (14:56)
[2023-08-13] MEDS ORDERED: Potassium Chloride 20 MEQ TAB PO SCH (15:15)
[2023-08-13] MEDS ORDERED: Potassium Chloride 20 MEQ in Premix 1 BAG IVPB SCH (15:15)
[2023-08-13] MEDS ORDERED: Electrolyte Replacement Protocol FS PRN (15:15)
[2023-08-13 16:47] LABS: Bilirubin Negative (Negative); Blood, Urine 1+ (Negative); Clarity Turbid (Clear); Glucose, Urine (Dipstick) 100 mg/dL (Negative); Ketone, Urine Trace mg/dL (Negative); Leukocyte 75 Leu/uL (Negative); Nitrite Negative (Negative); Protein, Urine (Dipstick) 100 mg/dL (Neg-Trace); Specific Gravity, Urine 1.036 (1.002-1.036); Urobilinogen Normal mg/dL (Less than 2)
[2023-08-13 16:48] LABS: Bacteria/HPF 1+ HPF (None Seen)
[2023-08-13 19:02] LABS: Anion Gap 10 mmol/L (10-20); BUN (Urea Nitrogen) 31 mg/dL (7.0-18.7); Calc. Creatinine Clearance 102 mL/min (70-130); Calcium 7.9 mg/dL (7.8-10.44); Carbon Dioxide 19 mmol/L (22-29); Chloride 128 mmol/L (98-107); Estimated GFR 74; Potassium 3.1 mmol/L (3.5-5.1)
[2023-08-13 19:07] LABS: Glucose 442 mg/dL (70-105); Sodium 154 mmol/L (136-145)
[2023-08-13] MEDS: Sodium Chloride 0.45% 1,000 ML IV SCH (20:00)
[2023-08-13] MEDS: Insulin Glargine 30 UNITS/0.3 ML VIAL SC SCH (20:26)
[2023-08-13] MEDS: Atorvastatin Calcium 40 MG TAB PO SCH (20:26)
[2023-08-13] MEDS ORDERED: Vancomycin (BATCH) 1.25 GM in Premix 1 BAG IVPB SCH (22:00)
[2023-08-13 22:57] LABS: Anion Gap 12 mmol/L (10-20); BUN (Urea Nitrogen) 30 mg/dL (7.0-18.7); Calc. Creatinine Clearance 87 mL/min (70-130); Calcium 7.8 mg/dL (7.8-10.44); Carbon Dioxide 18 mmol/L (22-29); Chloride 126 mmol/L (98-107); Estimated GFR 62
[2023-08-13 23:05] LABS: Glucose 481 mg/dL (70-105); Sodium 152 mmol/L (136-145)
[2023-08-14 01:32] LABS: Anion Gap 12 mmol/L (10-20); BUN (Urea Nitrogen) 26 mg/dL (7.0-18.7); Calc. Creatinine Clearance 119 mL/min (70-130); Calcium 7.4 mg/dL (7.8-10.44); Carbon Dioxide 16 mmol/L (22-29); Chloride 129 mmol/L (98-107); Estimated GFR 90; Glucose 336 mg/dL (70-105); Potassium 3.9 mmol/L (3.5-5.1)
[2023-08-14 01:41] LABS: Critical Call Chemistry ICU.SCT@0138; Sodium 153 mmol/L (136-145)
[2023-08-14] MEDS: Sodium Chloride 0.45% 1,000 ML IV SCH ×2 (01:57→08:13)
[2023-08-14 05:15] LABS: #Eosinphils 0.1 thou/uL (0.0-0.7); #Monocytes 0.4 thou/uL (0.11-0.59); #Neutrophils 6.5 thou/uL (1.40-6.50); %Basophils 0.2 % (0.0-1.0); %Eosinophils 1.5 % (0.0-10.0); %Lymphocytes 23.5 % (21.0-51.0); %Monocytes 4.7 % (0.0-10.0); %Neutrophils 69.8 % (42.0-75.0); Hematocrit 32.7 % (36.0-47.0); Hemoglobin 8.7 g/dL (12.0-16.0); Mean Corpuscular HGB CONC 26.6 g/dL (32.0-36.0); Mean Corpuscular Hemoglobin 20.2 pg (27.0-31.0); Platelet Count 107 10x3/uL (130-400); RBC Distribution Width 19.8 % (11.5-14.5); White Blood Cell (WBC) Count 9.4 10x3/uL (4.8-10.8)
[2023-08-14] MEDS: HumaLOG 300 UNITS/3 ML VIAL SC PRN ×4 (05:31→21:03)
[2023-08-14 05:41] LABS: Anion Gap 13 mmol/L (10-20); BUN (Urea Nitrogen) 24 mg/dL (7.0-18.7); Calc. Creatinine Clearance 127 mL/min (70-130); Calcium 7.8 mg/dL (7.8-10.44); Carbon Dioxide 17 mmol/L (22-29); Chloride 128 mmol/L (98-107); Estimated GFR 96; Glucose 307 mg/dL (70-105); Magnesium 1.8 mg/dL (1.6-2.6); Potassium 3.8 mmol/L (3.5-5.1)
[2023-08-14 05:50] LABS: Anisocytosis SLIGHT = 6-15 cells HPF (0-5); Burr Cells SLIGHT = 2-5 cells HPF (0-1); CellaVision Operator ID lab.sh2; Hypochromia SLIGHT = 6-15 cells HPF (0-5); Microcytosis SLIGHT = 6-15 cells HPF (0-5); Ovalocytes MODERATE= 6-15 cells HPF (0-1); Platelet Adequacy Comment Platelets Decreased; Poikilocytosis SLIGHT = 6-15 cells HPF (0-5)
[2023-08-14 05:59] LABS: Sodium 154 mmol/L (136-145)
[2023-08-14] MEDS ORDERED: Magnesium 2 GM/50 ML(in water) 2 GM in Premix 1 BAG IVPB SCH (08:00)
[2023-08-14] MEDS: Cefepime 2 GM in Sodium Chloride 0.9% 100 ML IVPB SCH (08:13)
[2023-08-14] MEDS: Cholecalciferol 1,000 UNITS (25 MCG) TAB PO SCH (08:14)
[2023-08-14] MEDS: Enoxaparin 40 MG (0.4 mL) SYRINGE SC SCH (08:15)
[2023-08-14] MEDS: Amlodipine 10 MG TAB PO SCH (08:15)
[2023-08-14] MEDS: Pantoprazole 40 MG VIAL IVP SCH (08:15)
[2023-08-14] MEDS: Lisinopril 5 MG TAB PO SCH (08:17)
[2023-08-14 08:30] LABS: Anion Gap 13 mmol/L (10-20); BUN (Urea Nitrogen) 23 mg/dL (7.0-18.7); Calc. Creatinine Clearance 146 mL/min (70-130); Calcium 7.7 mg/dL (7.8-10.44); Carbon Dioxide 18 mmol/L (22-29); Chloride 127 mmol/L (98-107); Estimated GFR 102; Glucose 239 mg/dL (70-105); Potassium 3.9 mmol/L (3.5-5.1)
[2023-08-14 08:36] LABS: Sodium 154 mmol/L (136-145)
[2023-08-14] MEDS ORDERED: Insulin Glargine 30 UNITS/0.3 ML VIAL SC SCH (09:00)
[2023-08-14] MEDS ORDERED: Sodium Bicarbonate 75 MEQ in Dextrose 5% in Water 1,000 ML IV SCH (10:00)
[2023-08-14 10:40] LABS: Phosphorus 2.4 mg/dL (2.3-4.7)
[2023-08-14 10:41] LABS: Anion Gap 12 mmol/L (10-20); BUN (Urea Nitrogen) 21 mg/dL (7.0-18.7); Calc. Creatinine Clearance 144 mL/min (70-130); Calcium 7.6 mg/dL (7.8-10.44); Carbon Dioxide 16 mmol/L (22-29); Chloride 126 mmol/L (98-107); Estimated GFR 101; Glucose 278 mg/dL (70-105); Potassium 3.8 mmol/L (3.5-5.1); Sodium 150 mmol/L (136-145)
[2023-08-14 12:45] LABS: Anion Gap 10 mmol/L (10-20); BUN (Urea Nitrogen) 19 mg/dL (7.0-18.7); Calc. Creatinine Clearance 150 mL/min (70-130); Carbon Dioxide 18 mmol/L (22-29); Chloride 125 mmol/L (98-107); Estimated GFR 105; Glucose 342 mg/dL (70-105); Potassium 4.2 mmol/L (3.5-5.1); Sodium 149 mmol/L (136-145)
[2023-08-14 14:35] LABS: Anion Gap 11 mmol/L (10-20); BUN (Urea Nitrogen) 19 mg/dL (7.0-18.7); Calc. Creatinine Clearance 152 mL/min (70-130); Carbon Dioxide 17 mmol/L (22-29); Chloride 123 mmol/L (98-107); Estimated GFR 107; Glucose 330 mg/dL (70-105); Potassium 4.2 mmol/L (3.5-5.1); Sodium 147 mmol/L (136-145)
[2023-08-14 17:06] LABS: Anion Gap 11 mmol/L (10-20); BUN (Urea Nitrogen) 20 mg/dL (7.0-18.7); Calc. Creatinine Clearance 131 mL/min (70-130); Carbon Dioxide 19 mmol/L (22-29); Chloride 122 mmol/L (98-107); Estimated GFR 90; Sodium 148 mmol/L (136-145)
[2023-08-14 17:17] LABS: Critical Call Chemistry NUR.AA8 @1716; Glucose 452 mg/dL (70-105)
[2023-08-14] MEDS ORDERED: Dextrose 5% in Water 1,000 ML IV SCH (18:00)
[2023-08-14 18:38] LABS: Anion Gap 13 mmol/L (10-20); BUN (Urea Nitrogen) 18 mg/dL (7.0-18.7); Calc. Creatinine Clearance 136 mL/min (70-130); Carbon Dioxide 17 mmol/L (22-29); Chloride 124 mmol/L (98-107); Estimated GFR 93; Potassium 3.8 mmol/L (3.5-5.1); Sodium 150 mmol/L (136-145)
[2023-08-14 18:45] LABS: Critical Call Chemistry NUR.AA8 @1845; Glucose 405 mg/dL (70-105)
[2023-08-14] MEDS: Atorvastatin Calcium 40 MG TAB PO SCH (20:44)
[2023-08-14] MEDS: Insulin Glargine 30 UNITS/0.3 ML VIAL SC SCH (20:57)
[2023-08-14 21:05] LABS: Anion Gap 11 mmol/L (10-20); BUN (Urea Nitrogen) 17 mg/dL (7.0-18.7); Calc. Creatinine Clearance 141 mL/min (70-130); Carbon Dioxide 18 mmol/L (22-29); Chloride 124 mmol/L (98-107); Estimated GFR 98; Glucose 388 mg/dL (70-105); Potassium 4.1 mmol/L (3.5-5.1); Sodium 149 mmol/L (136-145)
[2023-08-14 23:28] LABS: Anion Gap 12 mmol/L (10-20); BUN (Urea Nitrogen) 15 mg/dL (7.0-18.7); Calc. Creatinine Clearance 136 mL/min (70-130); Carbon Dioxide 18 mmol/L (22-29); Chloride 123 mmol/L (98-107); Estimated GFR 93; Glucose 395 mg/dL (70-105); Potassium 4.3 mmol/L (3.5-5.1); Sodium 149 mmol/L (136-145)
[2023-08-15 01:39] LABS: Anion Gap 12 mmol/L (10-20); BUN (Urea Nitrogen) 14 mg/dL (7.0-18.7); Calc. Creatinine Clearance 148 mL/min (70-130); Carbon Dioxide 17 mmol/L (22-29); Chloride 124 mmol/L (98-107); Estimated GFR 104; Glucose 387 mg/dL (70-105); Potassium 4.1 mmol/L (3.5-5.1); Sodium 149 mmol/L (136-145)
[2023-08-15 04:58] LABS: #Eosinphils 0.1 thou/uL (0.0-0.7); #Monocytes 0.4 thou/uL (0.11-0.59); #Neutrophils 5.1 thou/uL (1.40-6.50); %Basophils 0.1 % (0.0-1.0); %Eosinophils 1.4 % (0.0-10.0); %Lymphocytes 23.5 % (21.0-51.0); %Monocytes 5.5 % (0.0-10.0); %Neutrophils 69.4 % (42.0-75.0); Mean Corpuscular HGB CONC 27.6 g/dL (32.0-36.0); Mean Corpuscular Hemoglobin 20.6 pg (27.0-31.0); Mean Corpuscular Volume 74.7 fl (78.0-98.0); Platelet Count 105 10x3/uL (130-400); RBC Distribution Width 19.2 % (11.5-14.5); Red Blood Cell (RBC) Count 3.88 mill/uL (4.20-5.40); White Blood Cell (WBC) Count 7.3 10x3/uL (4.8-10.8)
[2023-08-15 05:18] LABS: Anion Gap 10 mmol/L (10-20); BUN (Urea Nitrogen) 14 mg/dL (7.0-18.7); Calc. Creatinine Clearance 150 mL/min (70-130); Carbon Dioxide 20 mmol/L (22-29); Chloride 123 mmol/L (98-107); Estimated GFR 105; Glucose 380 mg/dL (70-105); Potassium 3.9 mmol/L (3.5-5.1); Sodium 149 mmol/L (136-145)
[2023-08-15] MEDS: HumaLOG 300 UNITS/3 ML VIAL SC PRN ×4 (06:18→18:19)
[2023-08-15] MEDS ORDERED: FLU VACC QS2023-24(6MOS UP)/PF 60 MCG/0.5 ML SYRINGE IM ONE (09:00)
[2023-08-15] MEDS: Enoxaparin 40 MG (0.4 mL) SYRINGE SC SCH (09:22)
[2023-08-15] MEDS: Amlodipine 10 MG TAB PO SCH (09:24)
[2023-08-15] MEDS: Lisinopril 5 MG TAB PO SCH (09:24)
[2023-08-15] MEDS: Cholecalciferol 1,000 UNITS (25 MCG) TAB PO SCH (09:25)
[2023-08-15] MEDS: Insulin Glargine 30 UNITS/0.3 ML VIAL SC SCH ×2 (09:26→21:28)
[2023-08-15] MEDS: HumaLOG 300 UNITS/3 ML VIAL SC SCH ×3 (09:29→18:19)
[2023-08-15 17:12] LABS: Anion Gap 9 mmol/L (10-20); BUN (Urea Nitrogen) 11 mg/dL (7.0-18.7); Calc. Creatinine Clearance 157 mL/min (70-130); Calcium 8.3 mg/dL (7.8-10.44); Carbon Dioxide 22 mmol/L (22-29); Chloride 119 mmol/L (98-107); Estimated GFR 105; Glucose 294 mg/dL (70-105); Potassium 3.7 mmol/L (3.5-5.1); Sodium 146 mmol/L (136-145)
[2023-08-15] MEDS ORDERED: Insulin Glargine 30 UNITS/0.3 ML VIAL SC SCH (21:00)
[2023-08-15] MEDS: Atorvastatin Calcium 40 MG TAB PO SCH (21:28)
[2023-08-16 04:59] LABS: #Eosinphils 0.1 thou/uL (0.0-0.7); #Monocytes 0.4 thou/uL (0.11-0.59); #Neutrophils 3.4 thou/uL (1.40-6.50); %Basophils 0.2 % (0.0-1.0); %Eosinophils 1.3 % (0.0-10.0); %Lymphocytes 35.8 % (21.0-51.0); %Monocytes 6.1 % (0.0-10.0); %Neutrophils 56.3 % (42.0-75.0); Hematocrit 29.5 % (36.0-47.0); Hemoglobin 8.1 g/dL (12.0-16.0); Mean Corpuscular HGB CONC 27.5 g/dL (32.0-36.0); Mean Corpuscular Hemoglobin 20.8 pg (27.0-31.0); Mean Corpuscular Volume 75.8 fl (78.0-98.0); RBC Distribution Width 19.1 % (11.5-14.5); Red Blood Cell (RBC) Count 3.89 mill/uL (4.20-5.40); White Blood Cell (WBC) Count 6.1 10x3/uL (4.8-10.8)
[2023-08-16 05:19] LABS: Anion Gap 14 mmol/L (10-20); BUN (Urea Nitrogen) 12 mg/dL (7.0-18.7); Calc. Creatinine Clearance 169 mL/min (70-130); Calcium 8.3 mg/dL (7.8-10.44); Carbon Dioxide 17 mmol/L (22-29); Chloride 119 mmol/L (98-107); Estimated GFR 114; Glucose 236 mg/dL (70-105); Potassium 3.8 mmol/L (3.5-5.1); Sodium 146 mmol/L (136-145)
[2023-08-16 05:26] LABS: Platelet Count 51 10x3/uL (130-400)
[2023-08-16] MEDS: HumaLOG 300 UNITS/3 ML VIAL SC PRN ×3 (06:23→18:05)
[2023-08-16] MEDS ORDERED: Insulin Glargine 30 UNITS/0.3 ML VIAL SC SCH ×2 (09:30→21:00)
[2023-08-16] MEDS: Amlodipine 10 MG TAB PO SCH (10:28)
[2023-08-16] MEDS: Lisinopril 5 MG TAB PO SCH (10:29)
[2023-08-16] MEDS: Cholecalciferol 1,000 UNITS (25 MCG) TAB PO SCH (10:29)
[2023-08-16] MEDS: HumaLOG 300 UNITS/3 ML VIAL SC SCH ×3 (10:35→18:04)
[2023-08-16 14:59] LABS: Anion Gap 16 mmol/L (10-20); BUN (Urea Nitrogen) 11 mg/dL (7.0-18.7); Calc. Creatinine Clearance 155 mL/min (70-130); Calcium 9.2 mg/dL (7.8-10.44); Carbon Dioxide 22 mmol/L (22-29); Chloride 115 mmol/L (98-107); Estimated GFR 104; Glucose 209 mg/dL (70-105); Potassium 3.5 mmol/L (3.5-5.1); Sodium 149 mmol/L (136-145)
[2023-08-16] MEDS: Sodium Chloride 0.45% 1,000 ML IV SCH ×2 (18:06→23:49)
[2023-08-16] MEDS: Atorvastatin Calcium 40 MG TAB PO SCH (20:32)
[2023-08-16] MEDS ORDERED: Potassium Chloride 20 MEQ TAB PO SCH (22:00)
[2023-08-17] MEDS: Sodium Chloride 0.45% 1,000 ML IV SCH ×4 (04:33→13:50)
[2023-08-17 04:58] LABS: #Eosinphils 0.1 thou/uL (0.0-0.7); #Monocytes 0.4 thou/uL (0.11-0.59); #Neutrophils 4.2 thou/uL (1.40-6.50); %Basophils 0.1 % (0.0-1.0); %Eosinophils 1.3 % (0.0-10.0); %Lymphocytes 28.7 % (21.0-51.0); %Neutrophils 63.5 % (42.0-75.0); Hematocrit 29.6 % (36.0-47.0); Hemoglobin 8.1 g/dL (12.0-16.0); Mean Corpuscular HGB CONC 27.4 g/dL (32.0-36.0); Mean Corpuscular Hemoglobin 20.1 pg (27.0-31.0); Red Blood Cell (RBC) Count 4.03 mill/uL (4.20-5.40); White Blood Cell (WBC) Count 6.7 10x3/uL (4.8-10.8)
[2023-08-17 05:02] LABS: Anion Gap 10 mmol/L (10-20); BUN (Urea Nitrogen) 10 mg/dL (7.0-18.7); Calc. Creatinine Clearance 184 mL/min (70-130); Calcium 8.7 mg/dL (7.8-10.44); Carbon Dioxide 23 mmol/L (22-29); Chloride 119 mmol/L (98-107); Estimated GFR 118; Glucose 150 mg/dL (70-105); Mean Corpuscular Volume 73.4 fl (78.0-98.0); Platelet Count 88 10x3/uL (130-400); Potassium 3.8 mmol/L (3.5-5.1); Sodium 148 mmol/L (136-145)
[2023-08-17 05:30] LABS: Anisocytosis SLIGHT = 6-15 cells HPF (0-5); CellaVision Operator ID lab.abc; Elliptocytes SLIGHT = 2-5 cells HPF (0-1); Hypochromia SLIGHT = 6-15 cells HPF (0-5); Microcytosis SLIGHT = 6-15 cells HPF (0-5); Platelet Adequacy Comment Platelets Decreased; Poikilocytosis SLIGHT = 6-15 cells HPF (0-5)
[2023-08-17] MEDS ORDERED: Insulin Glargine 30 UNITS/0.3 ML VIAL SC SCH ×2 (09:00→16:10)
[2023-08-17] MEDS: Cholecalciferol 1,000 UNITS (25 MCG) TAB PO SCH (09:18)
[2023-08-17] MEDS: Lisinopril 5 MG TAB PO SCH (09:18)
[2023-08-17] MEDS: Amlodipine 10 MG TAB PO SCH (09:19)
[2023-08-17] MEDS: HumaLOG 300 UNITS/3 ML VIAL SC SCH ×3 (09:19→17:35)
[2023-08-17] MEDS: HumaLOG 300 UNITS/3 ML VIAL SC PRN (12:08)
[2023-08-17 15:40] LABS: Anion Gap 14 mmol/L (10-20); BUN (Urea Nitrogen) 7 mg/dL (7.0-18.7); Calc. Creatinine Clearance 184 mL/min (70-130); Carbon Dioxide 22 mmol/L (22-29); Chloride 118 mmol/L (98-107); Estimated GFR 118; Glucose 76 mg/dL (70-105); Potassium 3.7 mmol/L (3.5-5.1); Sodium 150 mmol/L (136-145)
[2023-08-17 15:42] LABS: Iron 22 ug/dL (50-170); Iron Binding Capacity, Total 299 mcg/dL (265-497); Transferrin, Serum 239 mg/dL (180-382)
[2023-08-17] MEDS: Dextrose 5% in Water 1,000 ML IV SCH ×2 (16:40→21:50)
[2023-08-17] MEDS ORDERED: Ferrous Sulfate 325 MG TAB PO SCH ×2 (17:00→17:15)
[2023-08-17] MEDS: Atorvastatin Calcium 40 MG TAB PO SCH (19:38)
[2023-08-17] MEDS: Insulin Glargine 30 UNITS/0.3 ML VIAL SC SCH (19:39)
[2023-08-18] MEDS: Dextrose 5% in Water 1,000 ML IV SCH (03:01)
[2023-08-18 05:28] LABS: #Eosinphils 0.1 thou/uL (0.0-0.7); #Monocytes 0.3 thou/uL (0.11-0.59); #Neutrophils 3.7 thou/uL (1.40-6.50); %Basophils 0.2 % (0.0-1.0); %Lymphocytes 32.4 % (21.0-51.0); %Monocytes 5.4 % (0.0-10.0); %Neutrophils 60.3 % (42.0-75.0); Hematocrit 28.8 % (36.0-47.0); Hemoglobin 8.3 g/dL (12.0-16.0); Mean Corpuscular HGB CONC 28.8 g/dL (32.0-36.0); Mean Corpuscular Hemoglobin 20.8 pg (27.0-31.0); Mean Corpuscular Volume 72.2 fl (78.0-98.0); RBC Distribution Width 18.7 % (11.5-14.5); Red Blood Cell (RBC) Count 3.99 mill/uL (4.20-5.40); White Blood Cell (WBC) Count 6.1 10x3/uL (4.8-10.8)
[2023-08-18 05:56] LABS: Anion Gap 12 mmol/L (10-20); BUN (Urea Nitrogen) 6 mg/dL (7.0-18.7); Calc. Creatinine Clearance 173 mL/min (70-130); Calcium 8.8 mg/dL (7.8-10.44); Carbon Dioxide 26 mmol/L (22-29); Chloride 112 mmol/L (98-107); Estimated GFR 117; Glucose 253 mg/dL (70-105); Potassium 3.6 mmol/L (3.5-5.1); Sodium 146 mmol/L (136-145)
[2023-08-18 06:00] LABS: Platelet Count 114 10x3/uL (130-400)
[2023-08-18] MEDS: HumaLOG 300 UNITS/3 ML VIAL SC PRN (06:19)
[2023-08-18] MEDS: Lisinopril 5 MG TAB PO SCH (08:33)
[2023-08-18] MEDS: Cholecalciferol 1,000 UNITS (25 MCG) TAB PO SCH (08:33)
[2023-08-18] MEDS: Amlodipine 10 MG TAB PO SCH (08:33)
[2023-08-18] MEDS: HumaLOG 300 UNITS/3 ML VIAL SC SCH ×3 (08:34→18:19)
[2023-08-18] MEDS: Insulin Glargine 30 UNITS/0.3 ML VIAL SC SCH (08:34)
[2023-08-18] MEDS ORDERED: Desmopressin Acetate 0.01% Nasal Solution NASAL SCH (11:00)
[2023-08-18] MEDS: Atorvastatin Calcium 40 MG TAB PO SCH (19:59)
[2023-08-18] MEDS ORDERED: Insulin Glargine 30 UNITS/0.3 ML VIAL SC SCH (22:15)
[2023-08-19 05:34] LABS: #Eosinphils 0.1 thou/uL (0.0-0.7); #Monocytes 0.6 thou/uL (0.11-0.59); #Neutrophils 4.6 thou/uL (1.40-6.50); %Basophils 0.1 % (0.0-1.0); %Eosinophils 1.4 % (0.0-10.0); %Lymphocytes 27.7 % (21.0-51.0); %Monocytes 7.5 % (0.0-10.0); Hemoglobin 7.7 g/dL (12.0-16.0); Mean Corpuscular HGB CONC 28.5 g/dL (32.0-36.0); Mean Corpuscular Volume 73.8 fl (78.0-98.0); Platelet Count 136 10x3/uL (130-400); Red Blood Cell (RBC) Count 3.66 mill/uL (4.20-5.40); White Blood Cell (WBC) Count 7.3 10x3/uL (4.8-10.8)
[2023-08-19 06:17] LABS: Anisocytosis SLIGHT = 6-15 cells HPF (0-5); CellaVision Operator ID lab.abc; Elliptocytes SLIGHT = 2-5 cells HPF (0-1); Hypochromia SLIGHT = 6-15 cells HPF (0-5); Microcytosis SLIGHT = 6-15 cells HPF (0-5); Platelet Adequacy Comment Platelets Increased
[2023-08-19 06:31] LABS: Anion Gap 10 mmol/L (10-20); BUN (Urea Nitrogen) 11 mg/dL (7.0-18.7); Calc. Creatinine Clearance 136 mL/min (70-130); Calcium 8.5 mg/dL (7.8-10.44); Carbon Dioxide 28 mmol/L (22-29); Chloride 112 mmol/L (98-107); Estimated GFR 88; Glucose 208 mg/dL (70-105); Potassium 3.6 mmol/L (3.5-5.1); Sodium 146 mmol/L (136-145)
[2023-08-19] MEDS: Insulin Glargine 30 UNITS/0.3 ML VIAL SC SCH (06:32)
[2023-08-19] MEDS: HumaLOG 300 UNITS/3 ML VIAL SC SCH ×3 (09:01→18:28)
[2023-08-19] MEDS: HumaLOG 300 UNITS/3 ML VIAL SC PRN (09:02)
[2023-08-19] MEDS: Desmopressin Acetate 0.01% Nasal Solution NASAL SCH (09:03)
[2023-08-19] MEDS: Amlodipine 10 MG TAB PO SCH (09:03)
[2023-08-19] MEDS: Lisinopril 5 MG TAB PO SCH (09:03)
[2023-08-19] MEDS: Cholecalciferol 1,000 UNITS (25 MCG) TAB PO SCH (09:03)
[2023-08-19 09:12] VITALS: BMI 36.1
[2023-08-19] MEDS ORDERED: Ferrous Sulfate 325 MG TAB PO SCH (17:00)
[2023-08-19 18:40] LABS: Anion Gap 11 mmol/L (10-20); BUN (Urea Nitrogen) 13 mg/dL (7.0-18.7); Calc. Creatinine Clearance 169 mL/min (70-130); Carbon Dioxide 26 mmol/L (22-29); Chloride 109 mmol/L (98-107); Estimated GFR 114; Glucose 100 mg/dL (70-105); Potassium 3.7 mmol/L (3.5-5.1); Sodium 142 mmol/L (136-145)
[2023-08-19] MEDS: Atorvastatin Calcium 40 MG TAB PO SCH (20:41)
[2023-08-20 05:08] LABS: Anion Gap 16 mmol/L (10-20); BUN (Urea Nitrogen) 14 mg/dL (7.0-18.7); Calc. Creatinine Clearance 153 mL/min (70-130); Calcium 9.2 mg/dL (7.8-10.44); Carbon Dioxide 19 mmol/L (22-29); Chloride 110 mmol/L (98-107); Estimated GFR 102; Glucose 221 mg/dL (70-105); Potassium 5.1 mmol/L (3.5-5.1); Sodium 140 mmol/L (136-145)
[2023-08-20 05:39] LABS: #Eosinphils 0.1 thou/uL (0.0-0.7); #Monocytes 0.5 thou/uL (0.11-0.59); #Neutrophils 3.5 thou/uL (1.40-6.50); %Basophils 0.3 % (0.0-1.0); %Eosinophils 1.2 % (0.0-10.0); %Lymphocytes 35.7 % (21.0-51.0); %Monocytes 8.4 % (0.0-10.0); %Neutrophils 54.1 % (42.0-75.0); Hematocrit 28.3 % (36.0-47.0); Mean Corpuscular HGB CONC 28.3 g/dL (32.0-36.0); Mean Corpuscular Hemoglobin 20.7 pg (27.0-31.0); Mean Corpuscular Volume 73.1 fl (78.0-98.0); Platelet Count 141 10x3/uL (130-400); Red Blood Cell (RBC) Count 3.87 mill/uL (4.20-5.40); White Blood Cell (WBC) Count 6.4 10x3/uL (4.8-10.8)
[2023-08-20] MEDS: Desmopressin Acetate 0.01% Nasal Solution NASAL SCH (09:05)
[2023-08-20] MEDS: Cholecalciferol 1,000 UNITS (25 MCG) TAB PO SCH (09:06)
[2023-08-20] MEDS: Amlodipine 10 MG TAB PO SCH (09:06)
[2023-08-20] MEDS: Lisinopril 5 MG TAB PO SCH (09:06)
[2023-08-20] MEDS: HumaLOG 300 UNITS/3 ML VIAL SC SCH ×3 (09:07→17:57)
[2023-08-20] MEDS: Insulin Glargine 30 UNITS/0.3 ML VIAL SC SCH (09:07)
[2023-08-20 13:23] LABS: Anion Gap 15 mmol/L (10-20); BUN (Urea Nitrogen) 12 mg/dL (7.0-18.7); Calc. Creatinine Clearance 164 mL/min (70-130); Calcium 9.4 mg/dL (7.8-10.44); Carbon Dioxide 22 mmol/L (22-29); Chloride 109 mmol/L (98-107); Estimated GFR 111; Glucose 157 mg/dL (70-105); Potassium 4.1 mmol/L (3.5-5.1); Sodium 142 mmol/L (136-145)
[2023-08-20 16:24] VITALS: BP 112/58; TEMP 98.3
== END 2023-08-20 18:37 | disposition home or self-care (01) | DRG 871 ==
LOC: ERS 12:53 → ERHOLD 15:59 → IMCU/EMU 23:05 → 2SW 08-14 16:39
PROVIDERS: ADMIT Emergency Medicine; ATTEND Emergency Medicine
DX: A41.9 Sepsis, unspecified organism (principal); E11.10 Type 2 diabetes mellitus with ketoacidosis without coma; E87.0 Hyperosmolality and hypernatremia; G91.9 Hydrocephalus, unspecified; N17.9 Acute kidney failure, unspecified; I10 Essential (primary) hypertension; E78.5 Hyperlipidemia, unspecified; K21.9 Gastro-esophageal reflux disease without esophagitis; G40.909 Epilepsy, unspecified, not intractable, without status epilepticus; N18.9 Chronic kidney disease, unspecified; E11.22 Type 2 diabetes mellitus with diabetic chronic kidney disease; I12.9 Hypertensive chronic kidney disease with stage 1 through stage 4 chronic kidney disease, or unspecified chronic kidney disease; E87.5 Hyperkalemia; E11.65 Type 2 diabetes mellitus with hyperglycemia; N18.2 Chronic kidney disease, stage 2 (mild); Z86.73 Personal history of transient ischemic attack (TIA), and cerebral infarction without residual deficits; Z79.899 Other long term (current) drug therapy; Z79.4 Long term (current) use of insulin; Z79.84 Long term (current) use of oral hypoglycemic drugs; Z82.49 Family history of ischemic heart disease and other diseases of the circulatory system; Z83.3 Family history of diabetes mellitus; Z98.890 Other specified postprocedural states; Z11.52 Encounter for screening for COVID-19
CPT/HCPCS: 36415; 36416; 70450; 71045; 75809; 80048; 80053; 80306; 80307; 81001; 82010; 82140; 82306; 82728; 82805; 83540; 83550; 83605; 83690; 83735; 83880; 83930; 83935; 83970; 84100; 84466; 84484; 84703; 85025; 85610; 85730; 87040; 87077; 87086; 90471; 90686; 93005; 96365; 96366; 96367; 96368; 96376; C9113; G0008; J0692; J0696; J1650; J1815; J3370; J3370-JW; J3475; J3480; J3490; J7050; J7070; J7999

== ENCOUNTER 2023-12-11 08:43 | Inpatient (IN) | payer MEDICARE, OTHER ==
[2023-12-11] MEDS ORDERED: Cyclobenzaprine 10 MG TAB ONE (09:56)
[2023-12-11 10:24] LABS: Bacteria/HPF 2+ HPF (None Seen); Bilirubin Negative (Negative); Blood, Urine Negative (Negative); CAUTI Indications for Culture Dysuria,urgency,freq; Clarity Turbid (Clear); Glucose, Urine (Dipstick) Greater than 1000 mg/dL (Negative); Ketone, Urine Trace mg/dL (Negative); Leukocyte 500 Leu/uL (Negative); Nitrite Negative (Negative); Protein, Urine (Dipstick) 20 mg/dL (Neg-Trace); RBC/HPF 0-3 HPF (0-3); WBC/HPF Greater than 50 HPF (0-3)
[2023-12-11 10:25] LABS: Specific Gravity, Urine 1.063 (1.002-1.036)
[2023-12-11 10:26] LABS: Urine Culture Reflex Yes Yes
[2023-12-11 11:12] LABS: #Basophils Less than 0.03 10x3/uL (0.0-0.2); %Basophils 0.2 % (0.0-1.0); %Eosinophils 1.2 % (0.0-10.0); %Lymphocytes 22.7 % (21.0-51.0); %Monocytes 5.5 % (0.0-10.0); %Neutrophils 70.2 % (42.0-75.0); Hemoglobin 13.7 g/dL (12.0-16.0); Mean Corpuscular HGB CONC 32.6 g/dL (32.0-36.0); Mean Corpuscular Hemoglobin 29.6 pg (27.0-31.0); Mean Corpuscular Volume 90.7 fL (78.0-98.0); Platelet Count 146 10x3/uL (130-400); RBC Distribution Width 18.6 % (11.5-14.5); Red Blood Cell (RBC) Count 4.63 mill/uL (4.20-5.40)
[2023-12-11 11:13] LABS: CRP,High Sensitivity (Inhouse) 0.51 mg/dL (< or = 0.5)
[2023-12-11 11:25] LABS: ALT (SGPT) 12 U/L (8-55); AST (SGOT) 10 U/L (5-34); Albumin 3.5 g/dL (3.5-5.0); Alkaline Phosphatase 104 U/L (40-110); Anion Gap 14 mmol/L (10-20); BUN (Urea Nitrogen) 17 mg/dL (7.0-18.7); Bilirubin, Total 0.8 mg/dL (0.2-1.2); Calc. Creatinine Clearance 0 mL/min (70-130); Calcium 9.3 mg/dL (7.8-10.44); Carbon Dioxide 24 mmol/L (22-29); Chloride 131 mmol/L (98-107); Estimated GFR 94; Globulin 3.4 g/dL (2.4-3.5); Glucose 350 mg/dL (70-105); Potassium 2.8 mmol/L (3.5-5.1); Protein, Total 6.9 g/dL (6.0-8.3); Sodium 166 mmol/L (136-145)
[2023-12-11] MEDS ORDERED: cefTRIAXone (ROCEPHIN) 1 GM VIAL ONE (12:35)
[2023-12-11] MEDS ORDERED: Sodium Chloride 0.9% 100 ML ONE (12:35)
[2023-12-11 13:37] LABS: Actual Bicarbonate (HCO3v) 22.5 mEq/L (22-28); Base Excess -4.3 mEq/L (-2.0 to +3.0); Calcium, Ionized (venous) 1.25 mmol/L (1.16-1.32); Chloride (VBG) 125 mmol/L (98-106); Hematocrit-VBG 43 % (36.0-47.0); Hemoglobin (Hb) 14.5 g/dL (11.7-15.5); Potassium (VBG) 3.09 mmol/L (3.70-5.30); pH (venous) 7.291 (7.32-7.43)
[2023-12-11 13:38] LABS: Sodium 166 mmol/L (133-146)
[2023-12-11] MEDS ORDERED: Potassium Chloride 20 MEQ (100 mL) BAG ONE (13:54)
[2023-12-11] MEDS ORDERED: Glucagon 1 MG/ML KIT IM PRN (14:48)
[2023-12-11] MEDS ORDERED: Dextrose 50% Abboject 50 ML SYRINGE SLOW IVP PRN (14:48)
[2023-12-11] MEDS ORDERED: Dextrose 5% in Water 1,000 ML IV PRN (14:48)
[2023-12-11] MEDS: Dextrose 5% in Water 1,000 ML IV SCH ×3 (15:37→20:28)
[2023-12-11] MEDS ORDERED: Potassium Chloride 20 MEQ TAB ONE (16:54)
[2023-12-11] MEDS: Potassium Chloride 20 MEQ TAB PO SCH (16:57)
[2023-12-11 17:15] LABS: Anion Gap 10 mmol/L (10-20); BUN (Urea Nitrogen) 19 mg/dL (7.0-18.7); Calc. Creatinine Clearance 0 mL/min (70-130); Calcium 8.8 mg/dL (7.8-10.44); Carbon Dioxide 24 mmol/L (22-29); Chloride 132 mmol/L (98-107); Estimated GFR 100; Glucose 345 mg/dL (70-105); Potassium 2.7 mmol/L (3.5-5.1); Sodium 163 mmol/L (136-145)
[2023-12-11] MEDS: Potassium Chloride 20 MEQ in Premix 1 BAG IVPB SCH ×2 (18:39→20:36)
[2023-12-11 19:34] LABS: Anion Gap 11 mmol/L (10-20); BUN (Urea Nitrogen) 19 mg/dL (7.0-18.7); Calc. Creatinine Clearance 0 mL/min (70-130); Calcium 8.9 mg/dL (7.8-10.44); Carbon Dioxide 23 mmol/L (22-29); Chloride 132 mmol/L (98-107); Estimated GFR 94; Glucose 381 mg/dL (70-105); Potassium 2.8 mmol/L (3.5-5.1); Sodium 163 mmol/L (136-145)
[2023-12-11] MEDS: Electrolyte Replacement Protocol 1 EACH FS ONE (20:37)
[2023-12-11] MEDS: Atorvastatin Calcium 40 MG TAB PO SCH (20:37)
[2023-12-11] MEDS: Desmopressin Acetate 0.01% Nasal Solution NASAL SCH (21:22)
[2023-12-11 21:59] LABS: Anion Gap 10 mmol/L (10-20); BUN (Urea Nitrogen) 18 mg/dL (7.0-18.7); Calc. Creatinine Clearance 0 mL/min (70-130); Calcium 8.7 mg/dL (7.8-10.44); Carbon Dioxide 22 mmol/L (22-29); Chloride 134 mmol/L (98-107); Estimated GFR 103; Glucose 355 mg/dL (70-105); Potassium 3.1 mmol/L (3.5-5.1); Sodium 163 mmol/L (136-145)
[2023-12-11] MEDS: Acetaminophen 325 MG TAB PO PRN (22:35)
[2023-12-12] MEDS: Potassium Chloride 20 MEQ in Premix 1 BAG IVPB SCH ×2 (00:32→05:55)
[2023-12-12 01:32] LABS: Anion Gap 9 mmol/L (10-20); BUN (Urea Nitrogen) 17 mg/dL (7.0-18.7); Calc. Creatinine Clearance 0 mL/min (70-130); Calcium 8.9 mg/dL (7.8-10.44); Carbon Dioxide 25 mmol/L (22-29); Chloride 130 mmol/L (98-107); Estimated GFR 114; Glucose 309 mg/dL (70-105); Potassium 4.3 mmol/L (3.5-5.1); Sodium 160 mmol/L (136-145)
[2023-12-12] MEDS: HumaLOG 300 UNITS/3 ML VIAL SC PRN ×2 (02:17→15:32)
[2023-12-12 05:40] LABS: Anion Gap 11 mmol/L (10-20); BUN (Urea Nitrogen) 17 mg/dL (7.0-18.7); Calc. Creatinine Clearance 163 mL/min (70-130); Calcium 8.6 mg/dL (7.8-10.44); Carbon Dioxide 24 mmol/L (22-29); Chloride 133 mmol/L (98-107); Estimated GFR 117; Glucose 207 mg/dL (70-105); Potassium 3.3 mmol/L (3.5-5.1); Sodium 165 mmol/L (136-145)
[2023-12-12 05:42] LABS: #Basophils 0.03 10x3/uL (0.0-0.2); %Basophils 0.4 % (0.0-1.0); %Lymphocytes 33.1 % (21.0-51.0); %Monocytes 6.2 % (0.0-10.0); %Neutrophils 58.2 % (42.0-75.0); Hematocrit 39.8 % (36.0-47.0); Hemoglobin 12.4 g/dL (12.0-16.0); Mean Corpuscular HGB CONC 31.2 g/dL (32.0-36.0); Mean Corpuscular Hemoglobin 29.7 pg (27.0-31.0); Mean Corpuscular Volume 95.2 fL (78.0-98.0); Platelet Count 117 10x3/uL (130-400); RBC Distribution Width 18.5 % (11.5-14.5); Red Blood Cell (RBC) Count 4.18 mill/uL (4.20-5.40)
[2023-12-12] MEDS: Dextrose 5% in Water 1,000 ML IV SCH ×3 (05:56→11:58)
[2023-12-12] MEDS: Amlodipine 10 MG TAB PO SCH (08:04)
[2023-12-12] MEDS: Lisinopril 10 MG TAB PO SCH (08:04)
[2023-12-12] MEDS: Cholecalciferol 1,000 UNITS (25 MCG) TAB PO SCH (08:04)
[2023-12-12] MEDS: Enoxaparin 40 MG (0.4 mL) SYRINGE SC SCH (08:05)
[2023-12-12 10:41] LABS: Anion Gap 11 mmol/L (10-20); BUN (Urea Nitrogen) 17 mg/dL (7.0-18.7); Calc. Creatinine Clearance 149 mL/min (70-130); Calcium 9.2 mg/dL (7.8-10.44); Carbon Dioxide 24 mmol/L (22-29); Chloride 126 mmol/L (98-107); Estimated GFR 110; Glucose 413 mg/dL (70-105); Potassium 4.6 mmol/L (3.5-5.1); Sodium 156 mmol/L (136-145)
[2023-12-12] MEDS: Insulin Glargine 30 UNITS/0.3 ML VIAL SC SCH (10:58)
[2023-12-12 12:04] LABS: Anion Gap 12 mmol/L (10-20); BUN (Urea Nitrogen) 16 mg/dL (7.0-18.7); Calc. Creatinine Clearance 152 mL/min (70-130); Calcium 8.6 mg/dL (7.8-10.44); Carbon Dioxide 24 mmol/L (22-29); Chloride 125 mmol/L (98-107); Estimated GFR 112; Glucose 396 mg/dL (70-105); Potassium 4.4 mmol/L (3.5-5.1); Sodium 157 mmol/L (136-145)
[2023-12-12] MEDS: cefTRIAXone\\ROCEPHIN 1 GM in Sodium Chloride 0.9% 100 ML IVPB SCH (14:43)
[2023-12-12 19:02] LABS: Potassium 3.9 mmol/L (3.5-5.1); Sodium 151 mmol/L (136-145)
[2023-12-12] MEDS: Desmopressin Acetate 0.01% Nasal Solution NASAL SCH (20:30)
[2023-12-12] MEDS ORDERED: Desmopressin Acetate 0.01% Nasal Solution NASAL SCH (21:00)
[2023-12-13 04:43] LABS: Anion Gap 16 mmol/L (10-20); BUN (Urea Nitrogen) 11 mg/dL (7.0-18.7); Calc. Creatinine Clearance 173 mL/min (70-130); Calcium 8.5 mg/dL (7.8-10.44); Carbon Dioxide 22 mmol/L (22-29); Chloride 114 mmol/L (98-107); Estimated GFR 119; Glucose 172 mg/dL (70-105); Potassium 3.9 mmol/L (3.5-5.1); Sodium 148 mmol/L (136-145)
[2023-12-13 05:33] LABS: #Basophils Less than 0.03 10x3/uL (0.0-0.2); %Basophils 0.2 % (0.0-1.0); %Eosinophils 1.4 % (0.0-10.0); %Lymphocytes 21.3 % (21.0-51.0); %Monocytes 4.7 % (0.0-10.0); %Neutrophils 72.1 % (42.0-75.0); Hematocrit 42.4 % (36.0-47.0); Hemoglobin 14.2 g/dL (12.0-16.0); Mean Corpuscular HGB CONC 33.5 g/dL (32.0-36.0); Mean Corpuscular Hemoglobin 29.5 pg (27.0-31.0); Platelet Count 125 10x3/uL (130-400); RBC Distribution Width 16.8 % (11.5-14.5); Red Blood Cell (RBC) Count 4.82 mill/uL (4.20-5.40)
[2023-12-13] MEDS: Insulin Glargine 30 UNITS/0.3 ML VIAL SC SCH (08:31)
[2023-12-13 11:14] LABS: Platelet Adequacy Comment Platelets Decreased
[2023-12-13 19:04] LABS: Potassium 3.5 mmol/L (3.5-5.1); Sodium 143 mmol/L (136-145)
[2023-12-14 06:50] LABS: #Basophils Less than 0.03 10x3/uL (0.0-0.2); %Basophils 0.2 % (0.0-1.0); %Eosinophils 1.1 % (0.0-10.0); %Lymphocytes 28.6 % (21.0-51.0); %Monocytes 6.5 % (0.0-10.0); %Neutrophils 63.1 % (42.0-75.0); Hematocrit 40.4 % (36.0-47.0); Hemoglobin 13.8 g/dL (12.0-16.0); Mean Corpuscular HGB CONC 34.2 g/dL (32.0-36.0); Mean Corpuscular Hemoglobin 29.6 pg (27.0-31.0); Mean Corpuscular Volume 86.7 fL (78.0-98.0); Platelet Count 130 10x3/uL (130-400); RBC Distribution Width 16.4 % (11.5-14.5); Red Blood Cell (RBC) Count 4.66 mill/uL (4.20-5.40)
[2023-12-14 07:45] LABS: Anion Gap 13 mmol/L (10-20); BUN (Urea Nitrogen) 9 mg/dL (7.0-18.7); Calc. Creatinine Clearance 194 mL/min (70-130); Calcium 8.6 mg/dL (7.8-10.44); Carbon Dioxide 26 mmol/L (22-29); Chloride 108 mmol/L (98-107); Estimated GFR 121; Glucose 168 mg/dL (70-105); Potassium 3.2 mmol/L (3.5-5.1); Sodium 144 mmol/L (136-145)
[2023-12-14] MEDS: Potassium Chloride 20 MEQ TAB PO SCH (08:09)
[2023-12-14] MEDS: Insulin Glargine 30 UNITS/0.3 ML VIAL SC SCH (21:15)
[2023-12-15 07:31] LABS: Anion Gap 12 mmol/L (10-20); BUN (Urea Nitrogen) 9 mg/dL (7.0-18.7); Calc. Creatinine Clearance 175 mL/min (70-130); Carbon Dioxide 27 mmol/L (22-29); Chloride 110 mmol/L (98-107); Estimated GFR 119; Glucose 146 mg/dL (70-105); Potassium 3.6 mmol/L (3.5-5.1); Sodium 145 mmol/L (136-145)
[2023-12-15] MEDS: Insulin Glargine 30 UNITS/0.3 ML VIAL SC SCH (07:47)
[2023-12-15 07:49] VITALS: BP 129/77
[2023-12-15 08:08] VITALS: TEMP 97.7
[2023-12-15] MEDS ORDERED: Ciprofloxacin 500 MG TAB PO SCH (20:00)
== END 2023-12-15 15:08 | disposition home or self-care (01) | DRG 644 ==
LOC: ERS 08:43 → ERHOLD 12:41 → CCU 19:36 → IMCU/EMU 12-12 10:32
PROVIDERS: ADMIT Family Medicine; ATTEND Family Medicine
DX: E23.2 Diabetes insipidus (principal); E87.0 Hyperosmolality and hypernatremia; I69.854 Hemiplegia and hemiparesis following other cerebrovascular disease affecting left non-dominant side; N39.0 Urinary tract infection, site not specified; E87.6 Hypokalemia; E11.65 Type 2 diabetes mellitus with hyperglycemia; E78.5 Hyperlipidemia, unspecified; Z90.49 Acquired absence of other specified parts of digestive tract; Z98.890 Other specified postprocedural states; E11.649 Type 2 diabetes mellitus with hypoglycemia without coma; E66.9 Obesity, unspecified; Z68.32 Body mass index [BMI] 32.0-32.9, adult; K21.9 Gastro-esophageal reflux disease without esophagitis; E11.22 Type 2 diabetes mellitus with diabetic chronic kidney disease; N18.1 Chronic kidney disease, stage 1; I12.9 Hypertensive chronic kidney disease with stage 1 through stage 4 chronic kidney disease, or unspecified chronic kidney disease; D63.1 Anemia in chronic kidney disease
CPT/HCPCS: 36415; 36416; 72100; 80048; 80053; 81001; 82010; 82805; 83735; 83930; 83935; 85025; 86141; 87086; 93005; 96365; 96366; 96367; 96374; J0696; J1650; J1815; J3480; J3490; J7070

== ENCOUNTER 2024-07-19 14:26 | Inpatient (IN) | payer MEDICARE, OTHER ==
[2024-07-19 15:13] LABS: Hematocrit 35.7 % (36.0-47.0); Hemoglobin 11.6 g/dL (12.0-16.0); Mean Corpuscular HGB CONC 32.5 g/dL (32.0-36.0); Mean Corpuscular Hemoglobin 30.3 pg (27.0-31.0); Mean Corpuscular Volume 93.2 fL (78.0-98.0); Mean Platelet Volume 14.6 fL (7.4-10.4); Platelet Count 93 10x3/uL (130-400); Red Blood Cell (RBC) Count 3.83 mill/uL (4.20-5.40)
[2024-07-19 15:18] LABS: Actual Bicarbonate (HCO3v) 21.5 mEq/L (22-28); Analyzer IN Cardio ER; Base Excess -4.2 mEq/L (-2.0 to +3.0); Calcium, Ionized (venous) 1.12 mmol/L (1.16-1.32); Chloride (VBG) 125 mmol/L (98-106); Hematocrit-VBG 43 % (36.0-47.0); Hemoglobin (Hb) 14.7 g/dL (11.7-15.5); Potassium (VBG) 2.93 mmol/L (3.70-5.30); pH (venous) 7.333 (7.32-7.43)
[2024-07-19 15:28] LABS: Sodium 162 mmol/L (133-146)
[2024-07-19 15:40] LABS: Band 12 % (5-11); Eosinophils 1 % (0-10); Lymphocytes 18 % (21-51); Monocytes 2 % (0-10); Neutrophil 66 % (42-75); Plasma Cells 1 % (0-0); Platelet Adequacy Comment Platelets Decreased; Polychromasia SLIGHT = 2-3 cells HPF (0-2)
[2024-07-19 16:03] LABS: ALT (SGPT) 91 U/L (8-55); AST (SGOT) 47 U/L (5-34); Albumin 2.8 g/dL (3.5-5.0); Alkaline Phosphatase 96 U/L (40-110); Anion Gap 20 mmol/L (10-20); BUN (Urea Nitrogen) 40 mg/dL (7.0-18.7); Bilirubin, Total 0.6 mg/dL (0.2-1.2); Calc. Creatinine Clearance 0 mL/min (70-130); Calcium 8.1 mg/dL (7.8-10.44); Carbon Dioxide 20 mmol/L (22-29); Chloride 128 mmol/L (98-107); Estimated GFR 24; Globulin 3.6 g/dL (2.4-3.5); Glucose 425 mg/dL (70-105); Magnesium 2.1 mg/dL (1.6-2.6); Potassium 3.2 mmol/L (3.5-5.1); Protein, Total 6.4 g/dL (6.0-8.3); Sodium 165 mmol/L (136-145)
[2024-07-19 16:40] LABS: INR-International Normal Ratio 1.1; PTT 39.2 sec (22.9-36.1); Prothrombin Time 14.5 sec (12.0-14.7)
[2024-07-19] MEDS ORDERED: Potassium Chloride 20 MEQ (100 mL) BAG ONE (17:00)
[2024-07-19] MEDS ORDERED: 1/2 NS w/Potassium 20 mEq 1,000 ML IV SCH (17:15)
[2024-07-19] MEDS ORDERED: Potassium Chloride 20 MEQ TAB ONE (17:51)
[2024-07-19] MEDS: Potassium Chloride 20 MEQ TAB PO SCH ×2 (18:27→22:16)
[2024-07-19 18:28] LABS: Bacteria/HPF 4+ HPF (None Seen); Bilirubin Negative (Negative); Blood, Urine 1+ (Negative); CAUTI Indications for Culture Alt mental st,lethar; Clarity Turbid (Clear); Glucose, Urine (Dipstick) 150 mg/dL (Negative); Ketone, Urine Trace mg/dL (Negative); Leukocyte 500 Leu/uL (Negative); Nitrite Negative (Negative); Protein, Urine (Dipstick) 100 mg/dL (Neg-Trace); Squamous Epithelial 0-3 HPF (0-3); Urobilinogen 6 mg/dL (Less than 2); WBC/HPF Greater than 50 HPF (0-3); pH, Urine 5.5 (5.0-9.0)
[2024-07-19 18:31] LABS: Pregnancy Test - Urine (BHCG) Negative (Negative); Pregu Control Background? CLEAR/WHITE (CLR/WHITE); Pregu Control Bar Appear? YES (CONTROL BAR)
[2024-07-19 18:32] LABS: Urine Culture Reflex Yes Yes
[2024-07-19] MEDS: Dextrose 5% in Water 1,000 ML IV SCH (19:11)
[2024-07-19 20:17] LABS: Anion Gap 17 mmol/L (10-20); BUN (Urea Nitrogen) 37 mg/dL (7.0-18.7); Calc. Creatinine Clearance 46 mL/min (70-130); Calcium 8.5 mg/dL (7.8-10.44); Carbon Dioxide 22 mmol/L (22-29); Chloride 127 mmol/L (98-107); Estimated GFR 28; Glucose 358 mg/dL (70-105); Potassium 2.9 mmol/L (3.5-5.1); Sodium 163 mmol/L (136-145)
[2024-07-19] MEDS ORDERED: Dextrose 50% Abboject 50 ML SYRINGE SLOW IVP PRN (21:42)
[2024-07-19] MEDS ORDERED: Glucagon 1 MG/ML KIT IM PRN (21:42)
[2024-07-19] MEDS ORDERED: Insulin Lispro 100 UNIT/ML 10 ML VIAL SC PRN (21:42)
[2024-07-19] MEDS ORDERED: Dextrose 5% in Water 1,000 ML IV PRN (21:42)
[2024-07-19 22:57] LABS: Anion Gap 18 mmol/L (10-20); BUN (Urea Nitrogen) 35 mg/dL (7.0-18.7); Calc. Creatinine Clearance 47 mL/min (70-130); Calcium 8.4 mg/dL (7.8-10.44); Carbon Dioxide 21 mmol/L (22-29); Chloride 127 mmol/L (98-107); Estimated GFR 29; Glucose 356 mg/dL (70-105); Potassium 2.9 mmol/L (3.5-5.1); Sodium 163 mmol/L (136-145)
[2024-07-19] MEDS: Potassium Chloride 20 MEQ in Premix 1 BAG IVPB SCH (23:48)
[2024-07-19] MEDS: Pantoprazole 40 MG VIAL IVP SCH (23:48)
[2024-07-20 01:21] LABS: Anion Gap 17 mmol/L (10-20); BUN (Urea Nitrogen) 35 mg/dL (7.0-18.7); Calc. Creatinine Clearance 49 mL/min (70-130); Calcium 8.6 mg/dL (7.8-10.44); Carbon Dioxide 16 mmol/L (22-29); Chloride 131 mmol/L (98-107); Estimated GFR 30; Glucose 424 mg/dL (70-105); Potassium 4.1 mmol/L (3.5-5.1); Sodium 160 mmol/L (136-145)
[2024-07-20] MEDS: Insulin NPH Human Isophane 100 UNITS/ML (10 ML VIAL) SC SCH (01:46)
[2024-07-20] MEDS: Insulin Lispro 100 UNIT/ML 10 ML VIAL SC PRN ×2 (01:46→16:18)
[2024-07-20 04:29] LABS: Hematocrit 35.5 % (36.0-47.0); Hemoglobin 11.4 g/dL (12.0-16.0); Mean Corpuscular HGB CONC 32.1 g/dL (32.0-36.0); Mean Corpuscular Volume 93.4 fL (78.0-98.0); Mean Platelet Volume 13.7 fL (7.4-10.4); Platelet Count 79 10x3/uL (130-400); RBC Distribution Width 13.6 % (11.5-14.5)
[2024-07-20 04:39] LABS: ALT (SGPT) 65 U/L (8-55); AST (SGOT) 27 U/L (5-34); Albumin 2.3 g/dL (3.5-5.0); Alkaline Phosphatase 84 U/L (40-110); Anion Gap 11 mmol/L (10-20); BUN (Urea Nitrogen) 31 mg/dL (7.0-18.7); Bilirubin, Total 0.4 mg/dL (0.2-1.2); Calc. Creatinine Clearance 55 mL/min (70-130); Calcium 8.6 mg/dL (7.8-10.44); Carbon Dioxide 22 mmol/L (22-29); Chloride 128 mmol/L (98-107); Estimated GFR 35; Globulin 3.9 g/dL (2.4-3.5); Glucose 340 mg/dL (70-105); Potassium 3.4 mmol/L (3.5-5.1); Protein, Total 6.2 g/dL (6.0-8.3); Sodium 158 mmol/L (136-145)
[2024-07-20 04:59] LABS: Band 28 % (5-11); Lymphocytes 25 % (21-51); Monocytes 3 % (0-10); Neutrophil 41 % (42-75); Ovalocytes SLIGHT = 2-5 cells HPF (0-1); Platelet Adequacy Comment Platelets Decreased; Polychromasia SLIGHT = 2-3 cells HPF (0-2); Reactive Lymphocytes 3 % (0-10); Smudge Cells 11.8 %
[2024-07-20] MEDS: Potassium Chloride 20 MEQ in Premix 1 BAG IVPB SCH (05:06)
[2024-07-20] MEDS ORDERED: Insulin Lispro 100 UNIT/ML 10 ML VIAL SC PRN (06:30)
[2024-07-20] MEDS: Dextrose 5% in Water 1,000 ML IV SCH ×2 (07:39→13:57)
[2024-07-20 08:00] LABS: Magnesium 1.9 mg/dL (1.6-2.6)
[2024-07-20] MEDS ORDERED: cefTRIAXone\\ROCEPHIN 2 GM in Sodium Chloride 0.9% 100 ML IVPB SCH (08:30)
[2024-07-20] MEDS ORDERED: Insulin Glargine 30 UNITS/0.3 ML VIAL SC SCH (09:00)
[2024-07-20] MEDS: Pantoprazole 40 MG DR.TAB PO SCH (09:02)
[2024-07-20] MEDS: Desmopressin Acetate 0.01% Nasal Solution NASAL SCH (09:03)
[2024-07-20 09:04] LABS: Anion Gap 12 mmol/L (10-20); BUN (Urea Nitrogen) 26 mg/dL (7.0-18.7); Calc. Creatinine Clearance 74 mL/min (70-130); Calcium 8.3 mg/dL (7.8-10.44); Carbon Dioxide 22 mmol/L (22-29); Chloride 124 mmol/L (98-107); Estimated GFR 50; Glucose 277 mg/dL (70-105); Potassium 5.7 mmol/L (3.5-5.1); Sodium 152 mmol/L (136-145)
[2024-07-20] MEDS: cefTRIAXone\\ROCEPHIN 1 GM in Sodium Chloride 0.9% 100 ML IVPB SCH (09:04)
[2024-07-20 13:32] LABS: Anion Gap 12 mmol/L (10-20); BUN (Urea Nitrogen) 25 mg/dL (7.0-18.7); Calc. Creatinine Clearance 84 mL/min (70-130); Calcium 8.4 mg/dL (7.8-10.44); Carbon Dioxide 23 mmol/L (22-29); Chloride 128 mmol/L (98-107); Estimated GFR 59; Glucose 149 mg/dL (70-105); Potassium 3.3 mmol/L (3.5-5.1); Sodium 160 mmol/L (136-145)
[2024-07-20 18:21] LABS: Anion Gap 17 mmol/L (10-20); BUN (Urea Nitrogen) 22 mg/dL (7.0-18.7); Calc. Creatinine Clearance 89 mL/min (70-130); Calcium 8.3 mg/dL (7.8-10.44); Carbon Dioxide 21 mmol/L (22-29); Chloride 125 mmol/L (98-107); Estimated GFR 63; Glucose 269 mg/dL (70-105); Potassium 3.5 mmol/L (3.5-5.1); Sodium 159 mmol/L (136-145)
[2024-07-20] MEDS: Desmopressin Acetate 4 mcg/ml AMPUL SC SCH (20:27)
[2024-07-20 21:47] LABS: Anion Gap 14 mmol/L (10-20); BUN (Urea Nitrogen) 19 mg/dL (7.0-18.7); Calc. Creatinine Clearance 105 mL/min (70-130); Calcium 8.4 mg/dL (7.8-10.44); Carbon Dioxide 19 mmol/L (22-29); Chloride 125 mmol/L (98-107); Estimated GFR 76; Glucose 206 mg/dL (70-105); Potassium 3.2 mmol/L (3.5-5.1); Sodium 155 mmol/L (136-145)
[2024-07-21 01:57] LABS: Anion Gap 14 mmol/L (10-20); BUN (Urea Nitrogen) 18 mg/dL (7.0-18.7); Calc. Creatinine Clearance 100 mL/min (70-130); Calcium 8.5 mg/dL (7.8-10.44); Carbon Dioxide 22 mmol/L (22-29); Chloride 121 mmol/L (98-107); Estimated GFR 73; Glucose 284 mg/dL (70-105); Potassium 3.3 mmol/L (3.5-5.1); Sodium 154 mmol/L (136-145)
[2024-07-21 05:12] VITALS: BMI 29.5
[2024-07-21 05:17] LABS: #Basophils Less than 0.03 10x3/uL (0.0-0.2); %Basophils 0.2 % (0.0-1.0); %Eosinophils 0.6 % (0.0-10.0); %Monocytes 5.3 % (0.0-10.0); %Neutrophils 68.5 % (42.0-75.0); Hematocrit 33.4 % (36.0-47.0); Hemoglobin 11.1 g/dL (12.0-16.0); Mean Corpuscular HGB CONC 33.2 g/dL (32.0-36.0); Mean Corpuscular Hemoglobin 29.8 pg (27.0-31.0); Mean Corpuscular Volume 89.5 fL (78.0-98.0); Mean Platelet Volume 13.8 fL (7.4-10.4); Platelet Count 85 10x3/uL (130-400); RBC Distribution Width 13.2 % (11.5-14.5); Red Blood Cell (RBC) Count 3.73 mill/uL (4.20-5.40)
[2024-07-21 05:30] LABS: Anion Gap 13 mmol/L (10-20); BUN (Urea Nitrogen) 18 mg/dL (7.0-18.7); Carbon Dioxide 24 mmol/L (22-29); Chloride 121 mmol/L (98-107); Potassium 3.4 mmol/L (3.5-5.1); Sodium 155 mmol/L (136-145)
[2024-07-21 05:31] LABS: ALT (SGPT) 50 U/L (8-55); AST (SGOT) 23 U/L (5-34); Albumin 2.2 g/dL (3.5-5.0); Alkaline Phosphatase 86 U/L (40-110); Bilirubin, Total 0.4 mg/dL (0.2-1.2); Calc. Creatinine Clearance 117 mL/min (70-130); Calcium 8.2 mg/dL (7.8-10.44); Estimated GFR 88; Globulin 3.8 g/dL (2.4-3.5); Glucose 278 mg/dL (70-105); Magnesium 1.5 mg/dL (1.6-2.6)
[2024-07-21] MEDS: Potassium Chloride 20 MEQ TAB PO SCH ×2 (05:37→16:34)
[2024-07-21] MEDS ORDERED: Electrolyte Replacement Protocol 1 EACH FS SCH (06:43)
[2024-07-21] MEDS: Magnesium 2 GM/50 ML(in water) 2 GM in Premix 1 BAG IVPB SCH (07:49)
[2024-07-21] MEDS: Magnesium Oxide 400 MG TAB PO SCH ×2 (07:49→09:22)
[2024-07-21] MEDS: metFORMIN 500 MG TAB PO SCH (08:38)
[2024-07-21] MEDS: Insulin Glargine 30 UNITS/0.3 ML VIAL SC SCH (08:38)
[2024-07-21] MEDS: Saccharomyces boulardii 250 MG CAP PO SCH (08:39)
[2024-07-21] MEDS ORDERED: Insulin Glargine 30 UNITS/0.3 ML VIAL SC SCH (09:00)
[2024-07-21] MEDS: Dextrose 5% in Water 1,000 ML IV SCH (09:18)
[2024-07-21 10:33] LABS: Anion Gap 15 mmol/L (10-20); BUN (Urea Nitrogen) 16 mg/dL (7.0-18.7); Calc. Creatinine Clearance 114 mL/min (70-130); Calcium 8.8 mg/dL (7.8-10.44); Carbon Dioxide 22 mmol/L (22-29); Chloride 118 mmol/L (98-107); Estimated GFR 86; Glucose 256 mg/dL (70-105); Potassium 3.5 mmol/L (3.5-5.1); Sodium 151 mmol/L (136-145)
[2024-07-21] MEDS: Potassium Bicarbonate/Cit Ac 20 MEQ TAB PO SCH ×2 (11:40→21:06)
[2024-07-21] MEDS: Benzocaine/Menthol 1 LOZ LOZ PO PRN (13:47)
[2024-07-21 15:54] LABS: Anion Gap 14 mmol/L (10-20); BUN (Urea Nitrogen) 14 mg/dL (7.0-18.7); Calc. Creatinine Clearance 135 mL/min (70-130); Calcium 8.3 mg/dL (7.8-10.44); Carbon Dioxide 22 mmol/L (22-29); Chloride 117 mmol/L (98-107); Estimated GFR 105; Glucose 233 mg/dL (70-105); Potassium 3.4 mmol/L (3.5-5.1); Sodium 150 mmol/L (136-145)
[2024-07-21 20:19] LABS: ALT (SGPT) 45 U/L (8-55); AST (SGOT) 21 U/L (5-34); Albumin 2.3 g/dL (3.5-5.0); Alkaline Phosphatase 92 U/L (40-110); Anion Gap 13 mmol/L (10-20); BUN (Urea Nitrogen) 14 mg/dL (7.0-18.7); Bilirubin, Total 0.4 mg/dL (0.2-1.2); Calc. Creatinine Clearance 141 mL/min (70-130); Calcium 8.3 mg/dL (7.8-10.44); Carbon Dioxide 23 mmol/L (22-29); Chloride 116 mmol/L (98-107); Estimated GFR 110; Glucose 184 mg/dL (70-105); Potassium 3.2 mmol/L (3.5-5.1); Protein, Total 6.3 g/dL (6.0-8.3); Sodium 149 mmol/L (136-145)
[2024-07-21] MEDS: FLU (Fluarix Triv) TS24-25(6MOS UP)/PF 45 MCG/0.5 ML Syringe IM ONE (21:07)
[2024-07-21] MEDS: Potassium Chloride 20 MEQ in Premix 1 BAG IVPB SCH (22:12)
[2024-07-22 05:49] LABS: Hematocrit 31.8 % (36.0-47.0); Hemoglobin 10.8 g/dL (12.0-16.0); Mean Corpuscular Hemoglobin 29.8 pg (27.0-31.0); Mean Corpuscular Volume 87.8 fL (78.0-98.0); Mean Platelet Volume 13.2 fL (7.4-10.4); Platelet Count 123 10x3/uL (130-400); RBC Distribution Width 12.7 % (11.5-14.5); Red Blood Cell (RBC) Count 3.62 mill/uL (4.20-5.40)
[2024-07-22 06:05] LABS: ALT (SGPT) 37 U/L (8-55); AST (SGOT) 21 U/L (5-34); Albumin 2.2 g/dL (3.5-5.0); Alkaline Phosphatase 87 U/L (40-110); Anion Gap 12 mmol/L (10-20); BUN (Urea Nitrogen) 11 mg/dL (7.0-18.7); Bilirubin, Total 0.5 mg/dL (0.2-1.2); Calc. Creatinine Clearance 157 mL/min (70-130); Calcium 7.9 mg/dL (7.8-10.44); Carbon Dioxide 24 mmol/L (22-29); Chloride 111 mmol/L (98-107); Estimated GFR 116; Globulin 3.7 g/dL (2.4-3.5); Glucose 283 mg/dL (70-105); Potassium 3.6 mmol/L (3.5-5.1); Protein, Total 5.9 g/dL (6.0-8.3); Sodium 143 mmol/L (136-145)
[2024-07-22 06:44] LABS: Eosinophils 1 % (0-10); Large Platelets 5.1 % (0-5); Lymphocytes 32 % (21-51); Monocytes 2 % (0-10); Neutrophil 59 % (42-75); Platelet Adequacy Comment Platelets Decreased; RBC Morphology Within Normal Limits; Reactive Lymphocytes 6 % (0-10); Smudge Cells 9.2 %
[2024-07-22] MEDS: Insulin Glargine 30 UNITS/0.3 ML VIAL SC SCH (09:14)
[2024-07-22 20:33] LABS: Anion Gap 13 mmol/L (10-20); BUN (Urea Nitrogen) 9 mg/dL (7.0-18.7); Calc. Creatinine Clearance 184 mL/min (70-130); Calcium 8.2 mg/dL (7.8-10.44); Carbon Dioxide 24 mmol/L (22-29); Chloride 108 mmol/L (98-107); Estimated GFR 121; Glucose 121 mg/dL (70-105); Potassium 3.4 mmol/L (3.5-5.1); Sodium 142 mmol/L (136-145)
[2024-07-22] MEDS: Potassium Chloride 20 MEQ TAB PO SCH (21:30)
[2024-07-23] MEDS ORDERED: Insulin Lispro 100 UNIT/ML 10 ML VIAL SC PRN (08:24)
[2024-07-23 08:38] LABS: Hematocrit 34.3 % (36.0-47.0); Hemoglobin 11.8 g/dL (12.0-16.0); Mean Corpuscular HGB CONC 34.4 g/dL (32.0-36.0); Mean Corpuscular Hemoglobin 29.9 pg (27.0-31.0); Mean Corpuscular Volume 87.1 fL (78.0-98.0); Mean Platelet Volume 12.5 fL (7.4-10.4); Platelet Count 146 10x3/uL (130-400); RBC Distribution Width 12.2 % (11.5-14.5); Red Blood Cell (RBC) Count 3.94 mill/uL (4.20-5.40)
[2024-07-23 08:48] LABS: ALT (SGPT) 32 U/L (8-55); AST (SGOT) 20 U/L (5-34); Albumin 2.2 g/dL (3.5-5.0); Alkaline Phosphatase 91 U/L (40-110); Anion Gap 13 mmol/L (10-20); BUN (Urea Nitrogen) 8 mg/dL (7.0-18.7); Bilirubin, Total 0.4 mg/dL (0.2-1.2); Calc. Creatinine Clearance 164 mL/min (70-130); Calcium 8.2 mg/dL (7.8-10.44); Carbon Dioxide 25 mmol/L (22-29); Chloride 108 mmol/L (98-107); Estimated GFR 118; Globulin 3.9 g/dL (2.4-3.5); Glucose 159 mg/dL (70-105); Potassium 3.4 mmol/L (3.5-5.1); Protein, Total 6.1 g/dL (6.0-8.3); Sodium 143 mmol/L (136-145)
[2024-07-23 09:03] LABS: Band 6 % (5-11); Large Platelets 3.1 % (0-5); Lymphocytes 11 % (21-51); Metamyelocyte 1 % (0-0); Monocytes 6 % (0-10); Neutrophil 73 % (42-75); Ovalocytes SLIGHT = 2-5 cells HPF (0-1); Platelet Adequacy Comment Platelets Normal; Polychromasia SLIGHT = 2-3 cells HPF (0-2); Reactive Lymphocytes 3 % (0-10); Smudge Cells 8.2 %
[2024-07-23] MEDS: Potassium Chloride 20 MEQ TAB PO SCH (11:17)
[2024-07-23] MEDS ORDERED: Aluminum & Magnesium Hydroxide 60 ML, Lidocaine 2% Viscous Solution 30 ML, diphenhydrAM... SSW PRN (11:44)
[2024-07-23 14:30] LABS: Potassium 3.7 mmol/L (3.5-5.1)
[2024-07-23] MEDS ORDERED: BENZOCAINE/MENTHOL/ZINC CHLOR 5.1 GM TUBE TOP PRN (16:40)
[2024-07-23] MEDS: Ferrous Sulfate 325 MG TAB PO SCH (17:00)
[2024-07-23] MEDS: Atorvastatin Calcium 40 MG TAB PO SCH (21:25)
[2024-07-23] MEDS: Insulin Glargine 30 UNITS/0.3 ML VIAL SC SCH (21:25)
[2024-07-24 05:07] LABS: ALT (SGPT) 29 U/L (8-55); AST (SGOT) 22 U/L (5-34); Albumin 2.3 g/dL (3.5-5.0); Alkaline Phosphatase 95 U/L (40-110); Anion Gap 15 mmol/L (10-20); BUN (Urea Nitrogen) 8 mg/dL (7.0-18.7); Bilirubin, Total 0.5 mg/dL (0.2-1.2); Calc. Creatinine Clearance 168 mL/min (70-130); Calcium 8.6 mg/dL (7.8-10.44); Carbon Dioxide 22 mmol/L (22-29); Chloride 106 mmol/L (98-107); Estimated GFR 119; Globulin 4.2 g/dL (2.4-3.5); Glucose 89 mg/dL (70-105); Potassium 3.3 mmol/L (3.5-5.1); Protein, Total 6.5 g/dL (6.0-8.3); Sodium 140 mmol/L (136-145)
[2024-07-24 05:12] LABS: Hematocrit 38.1 % (36.0-47.0); Hemoglobin 12.7 g/dL (12.0-16.0); Mean Corpuscular HGB CONC 33.3 g/dL (32.0-36.0); Mean Corpuscular Hemoglobin 29.4 pg (27.0-31.0); Mean Corpuscular Volume 88.2 fL (78.0-98.0); Mean Platelet Volume 11.8 fL (7.4-10.4); Platelet Count 216 10x3/uL (130-400); RBC Distribution Width 12.2 % (11.5-14.5); Red Blood Cell (RBC) Count 4.32 mill/uL (4.20-5.40)
[2024-07-24 05:43] LABS: Elliptocytes SLIGHT = 2-5 cells HPF (0-1); Large Platelets 3.9 % (0-5); Lymphocytes 18 % (21-51); Monocytes 10 % (0-10); Neutrophil 73 % (42-75); Ovalocytes SLIGHT = 2-5 cells HPF (0-1); Platelet Adequacy Comment Platelets Normal; Polychromasia SLIGHT = 2-3 cells HPF (0-2); Toxic Granulation SLIGHT; Vacuoles SLIGHT
[2024-07-24] MEDS: Potassium Chloride 20 MEQ TAB PO SCH (08:50)
[2024-07-24] MEDS: Cholecalciferol 1,000 UNITS (25 MCG) TAB PO SCH (08:51)
[2024-07-24 13:26] VITALS: BMI 30.3
[2024-07-25 09:28] LABS: #Basophils Less than 0.03 10x3/uL (0.0-0.2); %Basophils 0.2 % (0.0-1.0); %Eosinophils 0.4 % (0.0-10.0); %Lymphocytes 25.9 % (21.0-51.0); %Monocytes 6.3 % (0.0-10.0); Hematocrit 33.6 % (36.0-47.0); Hemoglobin 11.6 g/dL (12.0-16.0); Mean Corpuscular HGB CONC 34.5 g/dL (32.0-36.0); Mean Corpuscular Hemoglobin 29.6 pg (27.0-31.0); Mean Corpuscular Volume 85.7 fL (78.0-98.0); Mean Platelet Volume 11.4 fL (7.4-10.4); Platelet Count 253 10x3/uL (130-400); RBC Distribution Width 12.6 % (11.5-14.5); Red Blood Cell (RBC) Count 3.92 mill/uL (4.20-5.40)
[2024-07-25 09:47] LABS: ALT (SGPT) 24 U/L (8-55); AST (SGOT) 18 U/L (5-34); Albumin 2.3 g/dL (3.5-5.0); Alkaline Phosphatase 93 U/L (40-110); Anion Gap 12 mmol/L (10-20); BUN (Urea Nitrogen) 12 mg/dL (7.0-18.7); Bilirubin, Total 0.5 mg/dL (0.2-1.2); Calc. Creatinine Clearance 168 mL/min (70-130); Calcium 8.5 mg/dL (7.8-10.44); Carbon Dioxide 25 mmol/L (22-29); Chloride 104 mmol/L (98-107); Estimated GFR 119; Globulin 4.2 g/dL (2.4-3.5); Glucose 91 mg/dL (70-105); Potassium 4.2 mmol/L (3.5-5.1); Protein, Total 6.5 g/dL (6.0-8.3); Sodium 137 mmol/L (136-145)
[2024-07-25 10:21] LABS: Anisocytosis SLIGHT = 6-15 cells HPF (0-5); Ovalocytes SLIGHT = 2-5 cells HPF (0-1); Platelet Adequacy Comment Platelets Normal; Poikilocytosis SLIGHT = 6-15 cells HPF (0-5); Polychromasia SLIGHT = 2-3 cells HPF (0-2)
[2024-07-25] MEDS: Acetaminophen 325 MG TAB PO PRN (14:58)
[2024-07-26 05:46] LABS: #Basophils 0.04 10x3/uL (0.0-0.2); %Basophils 0.5 % (0.0-1.0); %Eosinophils 0.4 % (0.0-10.0); %Lymphocytes 29.9 % (21.0-51.0); %Monocytes 7.2 % (0.0-10.0); %Neutrophils 59.8 % (42.0-75.0); Hematocrit 34.3 % (36.0-47.0); Hemoglobin 11.5 g/dL (12.0-16.0); Mean Corpuscular HGB CONC 33.5 g/dL (32.0-36.0); Mean Corpuscular Hemoglobin 29.4 pg (27.0-31.0); Mean Corpuscular Volume 87.7 fL (78.0-98.0); Mean Platelet Volume 11.4 fL (7.4-10.4); Platelet Count 319 10x3/uL (130-400); RBC Distribution Width 12.6 % (11.5-14.5); Red Blood Cell (RBC) Count 3.91 mill/uL (4.20-5.40)
[2024-07-26 06:04] LABS: ALT (SGPT) 21 U/L (8-55); AST (SGOT) 20 U/L (5-34); Albumin 2.4 g/dL (3.5-5.0); Alkaline Phosphatase 93 U/L (40-110); Anion Gap 12 mmol/L (10-20); BUN (Urea Nitrogen) 15 mg/dL (7.0-18.7); Bilirubin, Total 0.4 mg/dL (0.2-1.2); Calc. Creatinine Clearance 162 mL/min (70-130); Calcium 8.8 mg/dL (7.8-10.44); Carbon Dioxide 25 mmol/L (22-29); Chloride 105 mmol/L (98-107); Estimated GFR 118; Globulin 4.1 g/dL (2.4-3.5); Glucose 109 mg/dL (70-105); Protein, Total 6.5 g/dL (6.0-8.3); Sodium 138 mmol/L (136-145)
[2024-07-26 19:50] VITALS: BP 142/84; TEMP 97.9
== END 2024-07-26 19:58 | DRG 643 ==
LOC: ERS 14:26 → ERHOLD 17:27 → CCU 20:39 → IMCU/EMU 07-21 21:29 → MSONC 07-23 15:50
PROVIDERS: ADMIT Family Medicine; ATTEND Family Medicine
DX: E23.2 Diabetes insipidus (principal); E11.00 Type 2 diabetes mellitus with hyperosmolarity without nonketotic hyperglycemic-hyperosmolar coma (NKHHC); G93.41 Metabolic encephalopathy; N39.0 Urinary tract infection, site not specified; N17.9 Acute kidney failure, unspecified; I69.354 Hemiplegia and hemiparesis following cerebral infarction affecting left non-dominant side; N18.4 Chronic kidney disease, stage 4 (severe); Z16.11 Resistance to penicillins; J02.9 Acute pharyngitis, unspecified; E86.0 Dehydration; R74.01 Elevation of levels of liver transaminase levels; E78.5 Hyperlipidemia, unspecified; K21.9 Gastro-esophageal reflux disease without esophagitis; E11.22 Type 2 diabetes mellitus with diabetic chronic kidney disease; I12.9 Hypertensive chronic kidney disease with stage 1 through stage 4 chronic kidney disease, or unspecified chronic kidney disease; B96.1 Klebsiella pneumoniae [K. pneumoniae] as the cause of diseases classified elsewhere; Z79.84 Long term (current) use of oral hypoglycemic drugs; Z79.899 Other long term (current) drug therapy; Z79.4 Long term (current) use of insulin; Z90.49 Acquired absence of other specified parts of digestive tract; Z91.148 Patient's other noncompliance with medication regimen for other reason
CPT/HCPCS: 36415; 36416; 70450; 80048; 80053; 81001; 81025; 82010; 82805; 83605; 83735; 84100; 85025; 85610; 85730; 87040; 87077; 87086; 87186; 93005; 96374; J0696; J1815; J2470; J2597; J3475; J3480; J7070